=== PATIENT | male | born 1940 | race Caucasian/White ===

== ENCOUNTER 2017-12-08 05:42 | Day surgery (SDC) | payer MEDICARE, OTHER ==
--- NOTE | 2017-11-25 13:10 | EKG REPORT ---
SEVERITY:- ABNORMAL ECG - SINUS RHYTHM INFERIOR INFARCT, AGE INDETERMINATE ABNRM R PROG, CONSIDER ASMI OR LEAD PLACEMENT : Confirmed by: Eugenio Manuel MD 25-Nov-2017 13:09:18
[2017-11-25 13:37] LABS: HEMATOCRIT 46.4 % (37.9-51.0); HEMOGLOBIN 15.6 g/dL (13.5-17.0); MEAN CORPUSCULAR HEMOGLOBIN 30.5 pg (27.0-33.4); MEAN CORPUSCULAR HGB CONC 33.7 g/dL (32.0-36.0); MEAN CORPUSCULAR VOLUME 91 fl (80-97); PLATELET COUNT 222 10^3/uL (150-450); RED BLOOD COUNT 5.11 10^6/uL (4.35-5.55); WHITE BLOOD COUNT 8.1 10^3/uL (4.0-10.5)
[2017-11-25 14:07] LABS: INTERNATIONAL RATION (INR) 0.94; PROTHROMBIN TIME 13.1 SEC (11.4-15.4)
[2017-11-25 14:08] LABS: PARTIAL THROMBOPLASTIN TIME 31.5 SEC (23.5-35.8)
[2017-11-25 14:15] LABS: ANION GAP 12 (5-19); BLOOD UREA NITROGEN 18 mg/dL (7-20); CALCIUM 9.9 mg/dL (8.4-10.2); CARBON DIOXIDE 34 mmol/L (22-30); CHLORIDE 99 mmol/L (98-107); GLUCOSE 91 mg/dL (75-110); POTASSIUM 4.2 mmol/L (3.6-5.0)
[~2017-12-08 05:42] MED LIST: CEFAZOLIN 1 GM/D5W RTU 1 GM/50 ML RTUPB IV PRN; LACTATED RINGERS 1000 ML IV PRN; LIDOCAINE 0.5% INJ-PF (5 MG/ML) 50 ML SDV SUBCUT PRN
[2017-12-08] MEDS ORDERED: FENTANYL CITRATE INJ/PF 100 MCG/2 ML AMPUL ONE (06:35)
[2017-12-08] MEDS ORDERED: MIDAZOLAM 2 MG/2 ML INJ ONE (06:35)
[2017-12-08] MEDS ORDERED: PROPOFOL INJ 200 MG/20 ML VIAL IV ONE (06:35)
[2017-12-08] MEDS ORDERED: PROMETHAZINE HCL INJ 25 MG/1 ML VIAL IV PRN (08:58)
[2017-12-08] MEDS ORDERED: DIPHENHYDRAMINE HCL 50 MG/ML VIAL IV PRN (08:58)
[2017-12-08] MEDS ORDERED: FENTANYL CITRATE INJ/PF 100 MCG/2 ML AMPUL IV PRN ×2 (08:58)
[2017-12-08] MEDS ORDERED: ONDANSETRON HCL INJ/PF 4 MG/2 ML SDV IV PRN (08:58)
--- NOTE | 2017-12-08 09:36 | Operative Report ---
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
--- NOTE | 2017-12-08 09:36 | Operative Report ---
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 Patient was brought into the operating room and placed on the operating room table in a [supine] position. Patient was then prepped with a Betadine scrub and Betadine solution and draped in a sterile and aseptic manner. The area was then marked. 12 O'clock was marked towards the nose 3 O'clock was marked towards the lateral forehead 6:00 was marked towards the mormon hairline 9:00 was marked towards the cheek The area was then anesthetized with 1% lidocaine with epinephrine and bicarbonate for its anesthetic and hemostatic effects. The area was then excised and marked at 12:00. The specimen was sent for frozen section. The results came back that the deep and lateral margins were free. We had considered a primary closure but this would go against the natural relaxed skin tension lines. A primary closure would be too tight and would have increased chance of dehiscence. This will leave more of a scar so we decided to use a rotation flap reconstruction which would camouflage the scar better and take tension off of the closure so that would be less chances of complications. The flap decision would allow us to closure fall into the crows feet and then curved around and fall into the sideburn which would camouflage at the best and cause the least amount of distortion of the surrounding structures and the eyelid. Then we went ahead and outlined the flap and anesthetized it. We then incised the flap and developed a flap maintaining the subdermal plexus. Then we undermined 360 to allow for plate like scarring and minimize trap door deformity. Throughout the case hemostasis was achieved with the bipolar. We then sutured the flap into its new position using 5-0 Vicryl for the subcutaneous and deep dermis. Skin was closed with a [running subcuticular suture] stitch using [4-0 PDS] with knots being tied on the outside. And [4-0 PDS] suture was used for support and placed in the central area of the incision. We then applied tincture benzoin and Steri-Strips followed by a light pressure dressing. Patient was then reversed from anesthesia and taken to the [facility] for recovery. The patient tolerated well. There were no complications. Lesion size was approximately 1.7 x 1.5 cm please see pathology for actual size. Portions of this note may be dictated using [employer] voice recognition software. Occasional variations and spelling and vocabulary could be possible and are unintentional. Additionally, there is a chance that some errors may not be caught or corrected. Please notify the author of any discrepancies noted or if any statements are unclear. Subjective: No complaints Objective: Vital signs stable afebrile No bleeding Dressing intact Assessment and plan: Doing well. Elevate the operative site. Resume medications. Take antibiotics for 1 day Follow-up Full instructions were given to the patient and family and they understand Portions of this note may be dictated using [employer] voice recognition software. Occasional variations and spelling and vocabulary could be possible and are unintentional. Additionally, there is a chance that some errors may not be caught or corrected. Please notify the offer of any discrepancies noted or if any statements are unclear.
--- NOTE | 2017-12-08 09:38 | Discharge Summary ---
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 Leave the steri-strip tapes on for 5 days, then removal. Then cleaning wound with peroxide and apply Neosporin/bacitracin 3 times per day. Antibiotics for 1 day, then discontinue. Elevate operative area to decrease swelling. Do not strain, or lift heavy objects. Call for excessive bleeding, increased temperature of 101, uncontrolled pain, or excessive nausea or vomiting. You may reach Dr. Marinelli through his office at [phone]. In the event of an emergency after hours, then contact Dr. Marinelli through [facility]. Return to the office for a postop check on . The time will be scheduled by the nursing staff of [facility] prior to discharge. Please give the patient a copy of their labs and EKG so they can bring this to their PMD. Thank you Portions of this note may be dictated using [employer] voice recognition software. Occasional variations and spelling and vocabulary could be possible and are unintentional. Additionally, there is a chance that some errors may not be caught or corrected. Please notify the offer of any discrepancies noted or if any statements are unclear. Referrals: REGAN ESPAÑA MD [Primary Care Provider] - Discharge Diet: As Tolerated Report the Following to Your Physician Immediately: Unusual Bleeding - Keep head elevated. No bending or straining.
[2017-12-08 15:40] VITALS: BP 109/65
[2017-12-08] MEDS ORDERED: LIDOCAINE 2% INJ-PF (20 MG/ML) 2 ML AMPUL ONE (19:46)
== END 2017-12-08 11:30 | disposition home or self-care (01) ==
LOC: OROUT 05:42
PROVIDERS: ATTEND Plastic Surgery
DX: C44.329 Squamous cell carcinoma of skin of other parts of face (principal); I10 Essential (primary) hypertension; I51.9 Heart disease, unspecified; I25.2 Old myocardial infarction; Z79.899 Other long term (current) drug therapy; Z85.828 Personal history of other malignant neoplasm of skin; Z79.01 Long term (current) use of anticoagulants; Z01.818 Encounter for other preprocedural examination
CPT/HCPCS: 14040; 93005; 36415 ×2; 84132; 85027; 85610; 85730; 80048; 88305 ×2; 88331 ×2; 93010; J2250; J0690; J3490 ×3; J2704; 300; J3010

== ENCOUNTER 2018-11-20 12:00 | Inpatient (IN) | payer MEDICARE, OTHER ==
[2018-11-20 12:34] LABS: ABSOLUTE EOSINOPHILS # (AUTO) 0.1 10^3/uL (0.0-0.6); ABSOLUTE LYMPHOCYTES (AUTO) 1.1 10^3/uL (0.5-4.7); ABSOLUTE MONOCYTES (AUTO) 1.2 10^3/uL (0.1-1.4); ABSOLUTE NEUT (AUTO) 7.2 10^3/uL (1.7-8.2); BASOPHILS % (AUTO) 0.3 % (0-2); EOSINOPHILS % (AUTO) 0.5 % (0-6); HEMATOCRIT 43.8 % (37.9-51.0); HEMOGLOBIN 14.6 g/dL (13.5-17.0); LYMPHOCYTES % (AUTO) 11.2 % (13-45); MEAN CORPUSCULAR HEMOGLOBIN 30.6 pg (27.0-33.4); MEAN CORPUSCULAR HGB CONC 33.4 g/dL (32.0-36.0); MEAN CORPUSCULAR VOLUME 92 fl (80-97); MONOCYTES % (AUTO) 12.5 % (3-13); PLATELET COUNT 218 10^3/uL (150-450); RED BLOOD COUNT 4.78 10^6/uL (4.35-5.55); RED CELL DISTRIBUTION WIDTH 14.7 % (11.5-14.0); SEGMENTED NEUTROPHILS % (AUTO) 75.5 % (42-78); TOTAL CELLS COUNTED % (AUTO) 100 %; WHITE BLOOD COUNT 9.5 10^3/uL (4.0-10.5)
[2018-11-20 12:53] LABS: ALANINE AMINOTRANSFERASE 28 U/L (21-72); ALBUMIN 3.9 g/dL (3.5-5.0); ALKALINE PHOSPHATASE 73 U/L (38-126); ANION GAP 12 (5-19); ASPARTATE AMINO TRANSFERASE 22 U/L (17-59); BILIRUBIN,DIRECT 0.2 mg/dL (0.0-0.4); BILIRUBIN,TOTAL 1.1 mg/dL (0.2-1.3); BLOOD UREA NITROGEN 23 mg/dL (7-20); CALCIUM 9.7 mg/dL (8.4-10.2); CARBON DIOXIDE 29 mmol/L (22-30); CHLORIDE 102 mmol/L (98-107); CREATINE KINASE 40 U/L (55-170); GLUCOSE 114 mg/dL (75-110); SODIUM 142.6 mmol/L (137-145); TOTAL PROTEIN 7.2 g/dL (6.3-8.2)
[2018-11-20 13:05] LABS: CREATINE KINASE MB 0.44 ng/mL (<4.55)
[2018-11-20 13:06] LABS: TROPONIN I < 0.012 ng/mL
[2018-11-20] MEDS ORDERED: NORMAL SALINE 1000 ML 1,000 ML IV ONE (15:13)
--- NOTE | 2018-11-20 15:13 | EKG REPORT ---
SEVERITY:- ABNORMAL ECG - SINUS RHYTHM INFERIOR INFARCT, AGE INDETERMINATE ABNRM R PROG, CONSIDER ASMI OR LEAD PLACEMENT : Confirmed by: Eugenio Manuel MD 20-Nov-2018 15:12:56
--- NOTE | 2018-11-20 15:14 | ER Document Report ---
ED Dizziness/Weakness - General Chief Complaint: Syncope Stated Complaint: POSSIBLE SYNCOPE Time Seen by Provider: 11/20/18 14:43 Primary Care Provider: REGAN ESPAÑA MD [Primary Care Provider] - Follow up as needed Notes: 78-year-old male to the emergency department for evaluation of near syncope. Patient took a bath when he got out of the bath he must passed out. Did not hit fall or hit his head. Denies any pain. Blood pressure was reportedly low. No blood in his stool. No headache. No other issues at this time. Denies any chest pain. Patient did have a heart attack in 1981. When EMS arrived his blood pressure was reportedly low. Positive orthostats as well. TRAVEL OUTSIDE OF THE [place] IN LAST 30 DAYS: No - HPI Patient complains to provider of: Dizziness, Near-syncope Onset: Just prior to arrival Onset/Duration: Sudden Quality of pain: No pain Severity: Mild Pain Level: Denies Associated symptoms: Confused Exacerbated by: denies: Change in position, Movement of head - Related Data Allergies/Adverse Reactions: Sulfa (Sulfonamide Antibiotics) Allergy (Verified 11/25/17 11:02) RASH Past Medical History - General Information source: Patient - Social History Smoking Status: Former Smoker Chew tobacco use (# tins/day): No Frequency of alcohol use: None Drug Abuse: None Lives with: Spouse/Significant other Family History: Reviewed & Not Pertinent Patient has suicidal ideation: No Patient has homicidal ideation: No - Past Medical History Cardiac Medical History: Reports: Hx Heart Attack - 1990, Hx Hypertension Denies: Hx Coronary Artery Disease Pulmonary Medical History: Denies: Hx Asthma, Hx Bronchitis, Hx COPD, Hx Pneumonia Neurological Medical History: Denies: Hx Cerebrovascular Accident, Hx Seizures Renal/ Medical History: Denies: Hx Peritoneal Dialysis Musculoskeletal Medical History: Denies Hx Arthritis - Immunizations Hx Diphtheria, Pertussis, Tetanus Vaccination: Yes Hx Pneumococcal Vaccination: 04/05/17 Review of Systems - Review of Systems Notes: Constitutional: denies: Chills, Diaphoresis, Fever, Malaise, Weakness EENT: denies: Eye discharge, Blurred vision, Tearing, Double vision, Nose congestion, Nose discharge, Throat swelling, Mouth pain Cardiovascular: denies: Palpitations, Heart racing, Orthopnea, Dyspnea, Chest pain positive for near syncope and hypotension Respiratory: denies: Cough, Hurts to breathe, Wheezing, Shortness of breath Gastrointestinal: denies: Abdominal pain, Diarrhea, Nausea, Vomiting, Black stools, bright red blood in stool Genitourinary: denies: Burning, Dysuria, Discharge, Frequency, Flank pain, Hematuria Musculoskeletal: denies: Joint pain, Joint swelling, Muscle pain, Muscle stiffness, back pain Hematologic/Lymphatic: denies: Anemia, Easy bleeding, Easy bruising, Blood clots Neurological/Psychological: denies: Confusion, Dementia, Depression, Loss of consciousness positive for dizziness and near syncope. Skin: No lesions, no masses, no skin breakdown, no abscesses Physical Exam - Vital signs Vitals: Resp Pulse Ox 18 88 L 11/20/18 12:02 11/20/18 12:02 Interpretation: Normal - General General appearance: Appears well, Alert - HEENT Head: Normocephalic, Atraumatic Eyes: Normal Pupils: PERRL - Respiratory Respiratory status: No respiratory distress Chest status: Nontender Breath sounds: Normal Chest palpation: Normal - Cardiovascular Rhythm: Regular Heart sounds: Normal auscultation Murmur: No - Abdominal Inspection: Normal Distension: No distension Bowel sounds: Normal Tenderness: Nontender Organomegaly: No organomegaly - Back Back: Normal, Nontender - Extremities General upper extremity: Normal inspection, Nontender, Normal color, Normal ROM, Normal temperature General lower extremity: Normal inspection, Nontender, Normal color, Normal ROM, Normal temperature. No: Edema, Elke's sign - Neurological Neuro grossly intact: Yes Cognition: Normal Orientation: AAOx4 [place] Coma Scale Eye Opening: Spontaneous [place] Coma Scale Verbal: Oriented [place] Coma Scale Motor: Obeys Commands [place] Coma Scale Total: 15 Speech: Normal Motor strength normal: LUE, RUE, LLE, RLE Sensory: Normal - Psychological Associated symptoms: Normal affect, Normal mood - Skin Skin Temperature: Warm Skin Moisture: Dry Skin Color: Normal Course - Re-evaluation Re-evalutation: 11/20/18 20:07 At this time patient's labs are slightly abnormal. He has a mildly elevated lactic acid. His WBC count is on the higher end of normal. His oxygen level keeps dropping to below 90%. He had a near syncopal episode at home. His blood pressure by EMS was in the 80s. He has some mild renal insufficiency. All this being said I think something is going on. More likely is developing early pneumonia. I have obtained blood cultures. I am not going to begin them at this time. I am going to admit him to the hospital for further evaluation as patient is a high risk for becoming septic or having some decompensated condition. Laboratory 11/20/18 11/20/18 11/20/18 12:20 12:20 12:20 WBC 9.5 RBC 4.78 Hgb 14.6 Hct 43.8 MCV 92 MCH 30.6 MCHC 33.4 RDW 14.7 H Plt Count 218 Seg Neutrophils % 75.5 Lymphocytes % 11.2 L Monocytes % 12.5 Eosinophils % 0.5 Basophils % 0.3 Absolute Neutrophils 7.2 Absolute Lymphocytes 1.1 Absolute Monocytes 1.2 Absolute Eosinophils 0.1 Absolute Basophils 0.0 Sodium 142.6 Potassium 4.0 Chloride 102 Carbon Dioxide 29 Anion Gap 12 BUN 23 H Creatinine 1.27 H Est GFR ( Amer) > 60 Est GFR (Non-Af Amer) 55 L Glucose 114 H Lactic Acid Calcium 9.7 Total Bilirubin 1.1 Direct Bilirubin 0.2 Neonat Total Bilirubin Not Reportable Neonat Direct Bilirubin Not Reportable Neonat Indirect Bili Not Reportable AST 22 ALT 28 Alkaline Phosphatase 73 Creatine Kinase 40 L CK-MB (CK-2) 0.44 Troponin I < 0.012 Total Protein 7.2 Albumin 3.9 Urine Color Urine Appearance Urine pH Ur Specific [place] Urine Protein Urine Glucose (UA) Urine Ketones Urine Blood Urine Nitrite Urine Bilirubin Urine Urobilinogen Ur Leukocyte Esterase Urine WBC (Auto) Urine RBC (Auto) Squamous Epi Cells Auto Amorphous Sediment Auto Urine Mucus (Auto) Urine Ascorbic Acid 11/20/18 11/20/18 11/20/18 15:20 17:37 17:45 WBC RBC Hgb Hct MCV MCH MCHC RDW Plt Count Seg Neutrophils % Lymphocytes % Monocytes % Eosinophils % Basophils % Absolute Neutrophils Absolute Lymphocytes Absolute Monocytes Absolute Eosinophils Absolute Basophils Sodium Potassium Chloride Carbon Dioxide Anion Gap BUN Creatinine Est GFR ( Amer) Est GFR (Non-Af Amer) Glucose Lactic Acid 1.9 Calcium Total Bilirubin Direct Bilirubin Neonat Total Bilirubin Neonat Direct Bilirubin Neonat Indirect Bili AST ALT Alkaline Phosphatase Creatine Kinase 43 L CK-MB (CK-2) Troponin I Total Protein Albumin Urine Color YANET Urine Appearance CLOUDY Urine pH 5.0 Ur Specific [place] 1.026 Urine Protein 30 H Urine Glucose (UA) NEGATIVE Urine Ketones TRACE H Urine Blood NEGATIVE Urine Nitrite NEGATIVE Urine Bilirubin NEGATIVE Urine Urobilinogen 2.0 H Ur Leukocyte Esterase NEGATIVE Urine WBC (Auto) 4 Urine RBC (Auto) 1 Squamous Epi Cells Auto <1 Amorphous Sediment Auto TRACE Urine Mucus (Auto) MANY Urine Ascorbic Acid NEGATIVE 11/20/18 17:45 WBC RBC Hgb Hct MCV MCH MCHC RDW Plt Count Seg Neutrophils % Lymphocytes % Monocytes % Eosinophils % Basophils % Absolute Neutrophils Absolute Lymphocytes Absolute Monocytes Absolute Eosinophils Absolute Basophils Sodium Potassium Chloride Carbon Dioxide Anion Gap BUN Creatinine Est GFR ( Amer) Est GFR (Non-Af Amer) Glucose Lactic Acid Calcium Total Bilirubin Direct Bilirubin Neonat Total Bilirubin Neonat Direct Bilirubin Neonat Indirect Bili AST ALT Alkaline Phosphatase Creatine Kinase CK-MB (CK-2) Troponin I < 0.012 Total Protein Albumin Urine Color Urine Appearance Urine pH Ur Specific [place] Urine Protein Urine Glucose (UA) Urine Ketones Urine Blood Urine Nitrite Urine Bilirubin Urine Urobilinogen Ur Leukocyte Esterase Urine WBC (Auto) Urine RBC (Auto) Squamous Epi Cells Auto Amorphous Sediment Auto Urine Mucus (Auto) Urine Ascorbic Acid Chest X-Ray 11/20/18 17:05 IMPRESSION: NO ACUTE RADIOGRAPHIC FINDING IN THE CHEST. - Vital Signs Vital signs: Temp Pulse Resp BP Pulse Ox 97.7 F 70 20 133/66 H 91 L 11/20/18 17:00 11/20/18 13:31 11/20/18 19:01 11/20/18 19:00 11/20/18 19:01 - Laboratory Result Diagrams: 11/20/18 12:20 11/20/18 12:20 Laboratory results interpreted by me: 11/20/18 11/20/18 11/20/18 12:20 12:20 15:20 RDW 14.7 H Lymphocytes % 11.2 L BUN 23 H Creatinine 1.27 H Est GFR (Non-Af Amer) 55 L Glucose 114 H Creatine Kinase 40 L Urine Protein 30 H Urine Ketones TRACE H Urine Urobilinogen 2.0 H 11/20/18 17:45 RDW Lymphocytes % BUN Creatinine Est GFR (Non-Af Amer) Glucose Creatine Kinase 43 L Urine Protein Urine Ketones Urine Urobilinogen - EKG Interpretation by [place] EKG shows normal: Sinus rhythm, [place], Intervals, QRS Complexes Additional EKG results interpreted by me: 11/20/18 20:10 Poor R wave progression. Discharge - Discharge Clinical Impression: Transient hypotension, Near syncope Condition: Good Disposition: ADMITTED INPATIENT Admitting Provider: Nila (Hospitalist) Unit Admitted: IMCU Referrals: REGAN ESPAÑA MD [Primary Care Provider] - Follow up as needed
[2018-11-20 16:13] LABS: AMORPHOUS SEDIMENT,URINE TRACE /HPF; APPEARANCE,URINE CLOUDY; BILIRUBIN,URINE NEGATIVE (NEGATIVE); COLOR,URINE AMBER; GLUCOSE, URINE NEGATIVE (NEGATIVE); KETONES,URINE TRACE mg/dL (NEGATIVE); LEUKOCYTE ESTERASE,URINE NEGATIVE (NEGATIVE); NITRITE,URINE NEGATIVE (NEGATIVE); PROTEIN,URINE 30 mg/dL (NEGATIVE); URINE SPECIFIC GRAVITY 1.026
--- NOTE | 2018-11-20 18:34 | RADIOLOGY REPORT (SQ) ---
EXAM DESCRIPTION: CHEST SINGLE VIEW COMPLETED DATE/TIME: 11/20/2018 6:18 pm REASON FOR STUDY: hypotensive COMPARISON: 11/03/2018 and earlier EXAM PARAMETERS: NUMBER OF VIEWS: One view. TECHNIQUE: Single frontal radiographic view of the chest acquired. RADIATION DOSE: NA LIMITATIONS: None. FINDINGS: LUNGS AND PLEURA: Persistent elevation of the right hemidiaphragm. No focal consolidation , pleural effusion, pneumothorax. MEDIASTINUM AND HILAR STRUCTURES: No masses. Contour normal. HEART AND VASCULAR STRUCTURES: Heart normal in size. Normal vasculature. Calcifications of the aort ic arch. BONES: No acute findings. HARDWARE: None in the chest. OTHER: No other significant finding. IMPRESSION: NO ACUTE RADIOGRAPHIC FINDING IN THE CHEST. TECHNICAL DOCUMENTATION: JOB ID: [id number] [employer]- All Rights Reserved Reading location - IP/workstation name: [email or web address]
[2018-11-20] MEDS ORDERED: TEMAZEPAM 15 MG CAPSULE PO PRN (21:17)
[2018-11-20] MEDS ORDERED: ONDANSETRON 4 MG TAB.RAPDIS PO PRN (21:17)
[2018-11-20] MEDS ORDERED: MAGNESIUM HYDROXIDE SUSP 30 ML UDCUP PO PRN (21:17)
[2018-11-20] MEDS ORDERED: MAG HYDROX/AL HYDROX/SIMETH SUSP 30 ML UDCUP PO PRN (21:17)
[2018-11-20] MEDS ORDERED: ACETAMINOPHEN 325 MG TABLET PO PRN (21:29)
[2018-11-20] MEDS: FAMOTIDINE 20 MG TABLET PO SCH (23:56)
[2018-11-20] MEDS: HEPARIN SOD (PORCINE) 5,000 UNIT/ML 1 ML SYRINGE SUBCUT SCH (23:56)
[2018-11-20] MEDS: RINGERS SOLUTION,LACTATED 1,000 ML IV PRN (23:57)
[2018-11-21 00:24] LABS: CREATINE KINASE MB 0.58 ng/mL (<4.55)
[2018-11-21 00:28] LABS: TROPONIN I < 0.012 ng/mL
[2018-11-21 02:38] LABS: APPEARANCE,URINE CLEAR; BILIRUBIN,URINE NEGATIVE (NEGATIVE); COLOR,URINE YELLOW; GLUCOSE, URINE NEGATIVE (NEGATIVE); KETONES,URINE TRACE mg/dL (NEGATIVE); LEUKOCYTE ESTERASE,URINE NEGATIVE (NEGATIVE); NITRITE,URINE NEGATIVE (NEGATIVE); PROTEIN,URINE NEGATIVE (NEGATIVE)
--- NOTE | 2018-11-21 04:01 | PDOC H&P ---
History of Present Illness Admission Date/PCP: 11/20/18 19:46 REGAN ESPAÑA MD Patient complains of: Near syncope History of Present Illness: COSTA MARTÍNEZ is a 78 year old male who presented to the emergency room via EMS with an acute episode of near syncope. He admits that shortly before his arrival to the emergency room he got up out of a bath and felt mildly lightheaded as though he might pass out and also experienced some mild confusion. He denies any other accompanying symptoms or associated signs. He denies prior similar episodes and has not identified any aggravating or ameliorating factors for his near syncope. He managed to stabilize himself and did not fall or sustain any injury but some of the EMS services to bring him to the hospital. Upon the arrival of EMS at his home he was found to have mild hypotension with positive orthostatic changes on vital sign assessment. In the emergency room he had an essentially unremarkable evaluation and was subsequent ly admitted to the hospital for further evaluation and treatment. Past Medical History Cardiac Medical History: Reports: Coronary Artery Disease, Myocardial Infarction - 1990, Hyperlipidema, Hypertension, Peripheral Vascular Disease Denies: Atrial Fibrillation Pulmonary Medical History: Denies: Asthma, Bronchitis, Chronic Obstructive Pulmonary Disease (COPD), Pneumonia EENT Medical History: Reports: Eyes - Prescription eyeglasses Denies: Cataracts, Ears - Hearing aids Neurological Medical History: Reports: Other - History of TIA Denies: Hemorrhagic CVA, Ischemic CVA, Seizures Endocrine Medical History: Denies: Diabetes Mellitus Type 1, Diabetes Mellitus Type 2, Hyperthyroidism, Hypothyroidism Renal/ Medical History: Denies: Chronic Kidney Disease, Nephrolithiasis Malignancy Medical History: Reports: 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 GI Medical History: Denies: Cirrhosis, Hepatitis Musculoskeltal Medical History: Denies: Arthritis, Gout Skin Medical History: Denies: Eczema, Psoriasis Psychiatric Medical History: Denies: Alcohol Dependency, Substance Abuse, Tobacco Dependency Traumatic Medical History: Reports: None Hematology: Denies: Anemia, Bleeding Tendencies Infectious Medical History: Reports: None Past Surgical History Past Surgical History: Reports: Carotid Endarterectomy, Other - Facial skin cancer surgery Social History Information Source: Patient Lives with: Spouse/Significant other Smoking Status: Never Smoker Frequency of Alcohol Use: None Hx Recreational Drug Use: No Drugs: None Hx Prescription Drug Abuse: No - Advance Directive Resuscitation Status: Full Code Surrogate healthcare decision maker:: Spouse Family History Family History: Malignancy - Father Parental Family History Reviewed: Yes Children Family History Reviewed: No Sibling(s) Family History Reviewed.: Yes Medication/Allergy Home Medications: Amlodipine Besylate 5 mg PO DAILY 11/25/17 Aspirin [Aspirin 325 mg Tablet] 325 mg PO DAILY 11/25/17 Atenolol [Tenormin] 50 mg PO DAILY 11/25/17 Donepezil HCl 10 mg PO DAILY 11/25/17 Hydrochlorothiazide 25 mg PO DAILY 11/25/17 Montelukast Sodium 10 mg PO DAILY 11/25/17 Rosuvastatin Calcium 20 mg PO DAILY 11/25/17 Cilostazol 100 mg PO DAILY 12/08/17 Allergies/Adverse Reactions: Sulfa (Sulfonamide Antibiotics) Allergy (Verified 11/25/17 11:02) RASH Review of Systems Constitutional: ABSENT: chills, fever(s) Eyes: ABSENT: visual disturbances, other - Ocular pain Ears: ABSENT: hearing changes, other - Ear pain Nose, Mouth, and Throat: ABSENT: mouth pain, sore throat Cardiovascular: PRESENT: other - Near syncope. ABSENT: chest pain, dyspnea on exertion, edema, orthropnea, palpitations Respiratory: ABSENT: cough, dyspnea Gastrointestinal: ABSENT: abdominal pain, constipation, diarrhea, nausea, vomiting Genitourinary: ABSENT: difficulty urinating, dysuria, hematuria Integumentary: ABSENT: pruritus, rash Neurological: PRESENT: as per HPI, confusion, other - Near syncope. ABSENT: c onvulsions, focal weakness, memory loss Psychiatric: ABSENT: anxiety, depression Endocrine: ABSENT: cold intolerance, heat intolerance Hematologic/Lymphatic: ABSENT: easy bleeding, easy bruising Physical Exam Vital Signs: Temp Pulse Resp BP Pulse Ox 97.7 F 70 25 H 123/64 94 11/20/18 17:00 11/20/18 13:31 11/20/18 21:01 11/20/18 21:00 11/20/18 21:01 Intake & Output 11/18/18 11/19/18 11/20/18 23:59 23:59 23:59 Intake Total 1000 Balance 1000 Weight 81.7 kg General appearance: PRESENT: no acute distress, cooperative Head exam: PRESENT: atraumatic, normocephalic Eye exam: ABSENT: conjunctival injection, scleral icterus Ear exam: PRESENT: normal external ear exam. ABSENT: bleeding, drainage Mouth exam: PRESENT: dry mucosa, neck supple Neck exam: ABSENT: thyromegaly, tracheal deviation Respiratory exam: PRESENT: clear to auscultation harriet, symmetrical, unlabored Cardiovascular exam: PRESENT: RRR. ABSENT: clicks, gallop, rubs Pulses: PRESENT: normal radial pulses, normal dorsalis pedis pul Vascular exam: PRESENT: normal capillary refill. ABSENT: pallor GI/Abdominal exam: PRESENT: normal bowel sounds, soft Rectal exam: PRESENT: deferred Extremities exam: ABSENT: joint swelling, pedal edema Musculoskeletal exam: PRESENT: full ROM, normal inspection Neurological exam: PRESENT: alert, awake, oriented to person, oriented to place, oriented to time, oriented to situation, CN II-XII grossly intact. ABSENT: motor sensory deficit Psychiatric exam: PRESENT: appropriate affect, normal mood Skin exam: PRESENT: dry, intact, warm. ABSENT: jaundice, rash, urticaria Results Laboratory Results: 11/20/18 12:20 11/20/18 12:20 11/20/18 11/20/18 11/20/18 12:20 12:20 15:20 WBC 9.5 RBC 4.78 Hgb 14.6 Hct 43.8 MCV 92 MCH 30.6 MCHC 33.4 RDW 14.7 H Plt Count 218 Seg Neutrophils % 75.5 Lymphocytes % 11.2 L Monocytes % 12.5 Eosinophils % 0.5 Basophils % 0.3 Absolute Neutrophils 7.2 Absolute Lymphocytes 1.1 Absolute Monocytes 1.2 Absolute Eosinophils 0.1 Absolute Basophils 0.0 Sodium 142.6 Potassium 4.0 Chloride 102 Carbon Dioxide 29 Anion Gap 12 BUN 23 H Creatinine 1.27 H Est GFR ( Amer) > 60 Est GFR (Non-Af Amer) 55 L Glucose 114 H Lactic Acid Calcium 9.7 Total Bilirubin 1.1 AST 22 ALT 28 Alkaline Phosphatase 73 Total Protein 7.2 Albumin 3.9 Urine Color YANET Urine Appearance CLOUDY Urine pH 5.0 Ur Specific [place] 1.026 Urine Protein 30 H Urine Glucose (UA) NEGATIVE Urine Ketones TRACE H Urine Blood NEGATIVE Urine Nitrite NEGATIVE Ur Leukocyte Esterase NEGATIVE Urine WBC (Auto) 4 Urine RBC (Auto) 1 11/20/18 17:37 WBC RBC Hgb Hct MCV MCH MCHC RDW Plt Count Seg Neutrophils % Lymphocytes % Monocytes % Eosinophils % Basophils % Absolute Neutrophils Absolute Lymphocytes Absolute Monocytes Absolute Eosinophils Absolute Basophils Sodium Potassium Chloride Carbon Dioxide Anion Gap BUN Creatinine Est GFR ( Amer) Est GFR (Non-Af Amer) Glucose Lactic Acid 1.9 Calcium Total Bilirubin AST ALT Alkaline Phosphatase Total Protein Albumin Urine Color Urine Appearance Urine pH Ur Specific [place] Urine Protein Urine Glucose (UA) Urine Ketones Urine Blood Urine Nitrite Ur Leukocyte Esterase Urine WBC (Auto) Urine RBC (Auto) 11/20/18 11/20/18 11/20/18 12:20 12:20 17:45 Creatine Kinase 40 L 43 L CK-MB (CK-2) 0.44 Troponin I < 0.012 11/20/18 17:45 Creatine Kinase CK-MB (CK-2) Troponin I < 0.012 Impressions: Chest X-Ray 11/20/18 17:05 IMPRESSION: NO ACUTE RADIOGRAPHIC FINDING IN THE CHEST. Assessment and Plan - Diagnosis (1) Near syncope Is this a current diagnosis for this admission?: Yes Plan: Patient will undergo evaluation for syncope including a carotid Doppler study, a CT of the head without contrast of the echocardiogram. CBC and metabolic profiles will be evaluated. A cardiology consultation was obtained with Dr. Sena. (2) Transient hypotension Is this a current diagnosis for this admission?: Yes Plan: Patient's hypertension responded well to IV fluids which will be continued for the first part of his hospital stay. A cardiology consultation with Dr. Sena has been requested. Patient's vital signs were monitored closely throughout his hospital course. (3) Coronary artery disease Qualifiers: Coronary Disease-Associated Artery/Lesion type: [place] artery [place] vs. transplanted heart: rosebud heart Associated angina: angina presence unspecified Qualified Code(s): I25.10 - Atherosclerotic heart disease of [place] coronary artery without angina pectoris Is this a current diagnosis for this admission?: Yes Plan: Patient will be continued on his usual medications for his coronary artery disease and hypertension. A lipid profile and serial cardiac enzymes will be obtained as part of this evaluation. A thyroid profile will also be obtained. (4) Peripheral vascular disease Is this a current diagnosis for this admission?: Yes Plan: Patient will be continued on his current medication for peripheral vascular vascular disease. - Time Time Spent with patient: 25-34 minutes Medications reviewed and adjusted accordingly: Yes Anticipated discharge: Home - Inpatient Certification Based on my medical assessment, after consideration of the patient's comorbidities, presenting symptoms, or acuity I expect that the services needed warrant INPATIENT care.: Yes I certify that my determination is in accordance with my understanding of Medicare's requirements for reasonable and necessary INPATIENT services [42 CFR 412.3e].: Yes Medical Necessity: Significant Comorbidiites Make Outpatient Treatment Too Risky, Need Close Monitoring Due to Risk of Patient Decompensation, Need For IV Fluids, Need For Continuous Telemetry Monitoring, Need for Neurological Checks
[2018-11-21] MEDS: HEPARIN SOD (PORCINE) 5,000 UNIT/ML 1 ML SYRINGE SUBCUT SCH ×3 (05:22→21:29)
[2018-11-21 06:03] LABS: HEMATOCRIT 40.7 % (37.9-51.0); HEMOGLOBIN 13.6 g/dL (13.5-17.0); MEAN CORPUSCULAR HEMOGLOBIN 30.5 pg (27.0-33.4); MEAN CORPUSCULAR HGB CONC 33.4 g/dL (32.0-36.0); MEAN CORPUSCULAR VOLUME 92 fl (80-97); PLATELET COUNT 175 10^3/uL (150-450); RED BLOOD COUNT 4.45 10^6/uL (4.35-5.55); RED CELL DISTRIBUTION WIDTH 14.6 % (11.5-14.0); WHITE BLOOD COUNT 8.9 10^3/uL (4.0-10.5)
[2018-11-21 06:30] LABS: ANION GAP 10 (5-19); BLOOD UREA NITROGEN 20 mg/dL (7-20); CALCIUM 9.4 mg/dL (8.4-10.2); CARBON DIOXIDE 29 mmol/L (22-30); CHLORIDE 103 mmol/L (98-107); CHOLESTEROL 125.25 mg/dL (0-200); GLUCOSE 101 mg/dL (75-110); POTASSIUM 3.6 mmol/L (3.6-5.0); TRIGLYCERIDES 181 mg/dL (<150)
[2018-11-21 06:41] LABS: CREATINE KINASE MB 0.65 ng/mL (<4.55); DIRECT LDL 65 mg/dL (<100)
[2018-11-21 06:46] LABS: FREE T4 (FREE THYROXINE) 1.22 ng/dL (0.78-2.19)
[2018-11-21 06:49] LABS: FREE T3 3.09 pg/mL (2.77-5.27)
[2018-11-21 06:53] LABS: TROPONIN I < 0.012 ng/mL; VLDL CHOLESTEROL 36.2 mg/dL (10-31)
[2018-11-21 07:03] LABS: THYROID STIMULATING HORMONE 1.46 uIU/mL (0.47-4.68)
[2018-11-21] MEDS: RINGERS SOLUTION,LACTATED 1,000 ML IV PRN (08:03)
--- NOTE | 2018-11-21 08:18 | RADIOLOGY REPORT (SQ) ---
EXAM DESCRIPTION: CT HEAD WITHOUT COMPLETED DATE/TIME: 11/20/2018 10:56 pm REASON FOR STUDY: near syncope, AMS COMPARISON: None. TECHNIQUE: Axial images acquired through the brain without intravenous contrast. Images reviewed wi th bone, brain and subdural windows. Additional sagittal and coronal reconstructions were generated. Images stored on PACS. All CT scanners at this facility use dose modulation, iterative reconstruction, and/or weight based d osing when appropriate to reduce radiation dose to as low as reasonably achievable (ALARA). [facility]: Dose Right [facility]: CareDose [facility]: Dose Right [facility]: Teradose 4D [facility]: Smart Nextt RADIATION DOSE: CT Rad equipment meets quality standard of care and radiation dose reduction techniq ues were employed. CTDIvol: 53.2 mGy. DLP: 937 mGy-cm.mGy. LIMITATIONS: None. FINDINGS: VENTRICLES: Prominent. CEREBRUM: No masses. No hemorrhage. No midline shift. Areas of low density in the white matter mos t likely due to chronic micro-vascular ischemic change. No evidence for acute infarction. CEREBELLUM: No masses. No hemorrhage. No alteration of density. No evidence for acute infarction. EXTRAAXIAL SPACES: Age-related involutional change. No fluid collections. No masses. ORBITS AND GLOBE: No intra- or extraconal masses. Normal contour of globe without masses. CALVARIUM: No fracture. PARANASAL SINUSES: No fluid or mucosal thickening. SOFT TISSUES: No mass or hematoma. OTHER: No other significant finding. IMPRESSION: CHRONIC CHANGES OF ATROPHY AND MICROVASCULAR ISCHEMIA. NO ACUTE PROCESS. EVIDENCE OF ACUTE STROKE: NO. TECHNICAL DOCUMENTATION: JOB ID: [id number] Quality ID # [id number]: Final reports with documentation of one or more dose reduction techniques (e.g., Au tomated exposure control, adjustment of the mA and/or kV according to patient size, use of iterative reconstruction technique) 2010 [employer]- All Rights Reserved Reading location - IP/workstation name: [email or web address]
--- NOTE | 2018-11-21 08:55 | EKG REPORT ---
SEVERITY:- ABNORMAL ECG - SINUS RHYTHM ATRIAL PREMATURE COMPLEX INFERIOR INFARCT, AGE INDETERMINATE ABNRM R PROG, CONSIDER ASMI OR LEAD PLACEMENT : Confirmed by: Eugenio Manuel MD 21-Nov-2018 08:54:52
[2018-11-21] MEDS: DOCUSATE SODIUM 100 MG CAPSULE PO SCH ×2 (09:28→18:24)
[2018-11-21] MEDS: FAMOTIDINE 20 MG TABLET PO SCH ×2 (09:28→21:30)
--- NOTE | 2018-11-21 14:13 | PDOC CONSULTATION ---
Consultation-Blank Consultation: CARDIOLOGY CONSULTATION BY Dr. Amelia Sena on 11/21/2018. Patient seen at 10 AM on 11/21/2018. REASON FOR CONSULTATION: Patient with possible dizziness and near syncope. To me the patient states that he did not have near syncope but felt very dizzy and was diaphoretic and had generalized weakness. HISTORY PRESENT ILLNESS: Patient is a 78-year-old male with known history of hypertension, carotid artery disease, and hyperlipidemia, states he took a bath and subsequently stood up and felt very dizzy and had generalized fatigue and was diaphoretic. The symptoms subsided when the patient did lie down. The patient came to the emergency room. And on the floor the patient was found to have orthostatic changes of blood pressure. The patient has no further symptoms after he has been hydrated. Of note his creatinine was slightly elevated on admission. This is come down since after the hydration and the patient's hydrochlorothiazide was stopped. He denies any chest pain or discomfort. There is no nancy syncope. There is no PND orthopnea or chest pain or chest discomfort. The patient does have a history of coronary artery disease, history of myocardial infarction in 1983. The patient denies any shortness of breath or wheezing or cough. Past Medical History Cardiac Medical History: Reports: Coronary Artery Disease, Myocardial Infarction -1983. Treated medically. He states about a little more than a year ago he had a stress test which was negative for ischemia., Hyperlipidema, Hypertension, Peripheral Vascular Disease, with history of left carotid endarterectomy. Denies: Atrial Fibrillation Pulmonary Medical History: Denies: Asthma, Bronchitis, Chronic Obstructive Pulmonary Disease (COPD), Pneumonia EENT Medical History: Reports: Eyes - Prescription eyeglasses Denies: Cataracts, Ears - Hearing aids Neurological Medical History: Reports: Other - History of TIA Denies: Hemorrhagic CVA, Ischemic CVA, Seizures Endocrine Medical History: Denies: Diabetes Mellitus Type 1, Diabetes Mellitus Type 2, Hyperthyroidism, Hypothyroidism Renal/ Medical History: Denies: Chronic Kidney Disease, Nephrolithiasis Malignancy Medical History: Reports: 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 GI Medical History: Denies: Cirrhosis, Hepatitis Musculoskeltal Medical History: Denies: Arthritis, Gout Skin Medical History: Denies: Eczema, Psoriasis Psychiatric Medical History: Denies: Alcohol Dependency, Substance Abuse, Tobacco Dependency Traumatic Medical History: Reports: None Hematology: Denies: Anemia, Bleeding Tendencies Infectious Medical History: Reports: None Past Surgical History Past Surgical History: Reports: Left Carotid Endarterectomy, Other - Facial skin cancer surgery Social History Information Source: Patient Lives with: Spouse/Significant other Smoking Status: Never Smoker Frequency of Alcohol Use: None Hx Recreational Drug Use: No Drugs: None Hx Prescription Drug Abuse: No - Advance Directive Resuscitation Status: Full Code Surrogate healthcare decision maker:: Spouse Family History Family History: Malignancy - Father Parental Family History Reviewed: Yes Children Family History Reviewed: No Sibling(s) Family History Reviewed.: Yes Medication/Allergy Home Medications: Amlodipine Besylate 5 mg PO DAILY 11/25/17 Aspirin [Aspirin 325 mg Tablet] 325 mg PO DAILY 11/25/17 Atenolol [Tenormin] 50 mg PO DAILY 11/25/17 Donepezil HCl 10 mg PO DAILY 11/25/17 Hydrochlorothiazide 25 mg PO DAILY 11/25/17 Montelukast Sodium 10 mg PO DAILY 11/25/17 Rosuvastatin Calcium 20 mg PO DAILY 11/25/17 Cilostazol 100 mg PO DAILY 12/08/17 Allergies/Adverse Reactions: Sulfa (Sulfonamide Antibiotics) Allergy (Verified 11/25/17 11:02) RASH Review of Systems Constitutional: ABSENT: chills, fever(s) Eyes: ABSENT: visual disturbances, other - Ocular pain Ears: ABSENT: hearing changes, other - Ear pain Nose, Mouth, and Throat: ABSENT: mouth pain, sore throat Cardiovascular: PRESENT: other - Near syncope. ABSENT: chest pain, dyspnea on exertion, edema, orthropnea, palpitations Respiratory: ABSENT: cough, dyspnea Gastrointestinal: ABSENT: abdominal pain, constipation, diarrhea, nausea, vomiting Genitourinary: ABSENT: difficulty urinating, dysuria, hematuria Integumentary: ABSENT: pruritus, rash Neurological: PRESENT: as per HPI, confusion, other - Near syncope. ABSENT: convulsions, focal weakness, memory loss Psychiatric: ABSENT: anxiety, depression Endocrine: ABSENT: cold intolerance, heat intolerance Hematologic/Lymphatic: ABSENT: easy bleeding, easy bruising CONSULT REQUESTING PHYSICIAN: Dr. Kaveh Stearns, hospitalist physician. Current Medications Generic Name Dose Route Start Last Admin Trade Name Freq PRN Reason Stop Dose Admin Acetaminophen 650 mg 11/20/18 21:29 Tylenol 325 Mg Tablet PO 12/20/18 21:28 Q4HP PRN For headache, pain or fever Al Hydrox/Mg Hydrox/Simethicone 30 ml 11/20/18 21:17 Maalox Plus Susp 30 Udcup PO 12/20/18 21:16 Q6HP PRN HEARTBURN Docusate Sodium 100 mg 11/21/18 10:00 11/21/18 18:24 Colace 100 Mg Capsule PO 12/21/18 09:59 Not Given BID KATELYNN Famotidine 20 mg 11/20/18 22:00 11/21/18 09:28 Pepcid 20 Mg Tablet PO 12/20/18 21:59 20 mg Q12 KATELYNN Administration Heparin Sodium (Porcine) 5,000 unit 11/20/18 22:00 11/21/18 13:46 Heparin Inj 5,000 Units/Ml 1 Ml Syringe SUBCUT 12/20/18 21:59 Not Given Q8 KATELYNN Magnesium Hydroxide 30 ml 11/20/18 21:17 Milk Of Magnesia 30 Ml Udcup PO 12/20/18 21:16 HSP PRN FOR CONSTIPATION Ondansetron HCl 4 mg 11/20/18 21:17 Zofran Odt 4 Mg Tablet PO 12/20/18 21:16 Q4HP PRN FOR NAUSEA/VOMITING Sodium Chloride 2.5 ml 11/20/18 22:00 11/21/18 13:46 Saline Flush 2.5 Ml Monoject Prefil Syrin IV 12/20/18 21:59 Not Given Q8 KATELYNN Temazepam 15 mg 11/20/18 21:17 Restoril 15 Mg Capsule PO 11/27/18 21:16 HSP PRN SLEEP OR INSOMNIA Discontinued Medications Generic Name Dose Route Start Last Admin Trade Name Freq PRN Reason Stop Dose Admin Sodium Chloride 1,000 mls @ 0 mls/hr 11/20/18 15:13 11/20/18 16:40 Nacl 0.9% 1000 Ml Iv Soln IV 11/20/18 15:14 Infused BOLUS ONE Infusion Wide Open Lactated Ringer's 1,000 mls @ 125 mls/hr 11/20/18 21:17 11/21/18 16:30 Lactated Ringers 1000 Ml Iv Soln IV Infused CONTINUOUS PRN Infusion THIS MED IS NOT "PRN" PHYSICAL EXAMINATION: The patient is well-built and well-nourished. At present in no acute distress. He is well-groomed. Selected Entries 11/21/18 11/21/18 11/21/18 07:00 07:56 11:26 Temperature 98.0 F Temperature Oral Source Pulse Rate 78 Sitting Pulse 87 Rate Standing Pulse 88 Laying Down 85 Pulse Respiratory 21 H 18 Rate Blood Pressure 127/63 H Blood Pressure 84 Mean Sitting BP 123/61 Laying Down BP 127/63 Standing BP 99/47 BP Location Right Arm BP Position Supine O2 Sat by Pulse 92 92 Oximetry Oxygen Flow 2.00 Rate Oxygen Delivery Nasal Cannula Room Air Method HEAD: Is atraumatic normocephalic. EYES: Pupils are equal round regular reactive to light and accommodation. Extraocular movements are normal. No conjunctival pallor. There is no scleral icterus. EARS: Tympanic memories are intact. External auditory canals are clear. NOSE: There is no deviated nasal septum. There is no information there is mucous membrane. MOUTH: Mucous members of mouth are moist tongue is moist. There is no ulcers. There is no bleeding from the gums. THROAT: There is no redness of the oropharynx. There is no exudates. SKIN: There is no skin lesions or skin rashes. There is no particular ecchymosis. NECK: Is supple. There is no JVD. Carotids are equal. There is faint bilateral carotid bruits. There is scar of left carotid endarterectomy on the left side of the neck. There is no lymphadenopathy. There is no goiter. There is no accessory muscle respiration use. Trachea central. LUNGS: Is clear to auscultation percussion, without rhonchi rales or wheezing. HEART: S1-S2 is heard. There is no S3 gallop. There is no S4 gallop. There is systolic murmur left sternal border and the apex. There is no rub. ABDOMEN: Is soft. There is no hepatospleno megaly. Bowel sounds well heard. There is no tender areas masses. Bowel sounds are normal. EXTREMITIES: Femorals well felt. There is no femoral bruits. Leg pulses are well felt. There is no pedal edema. There is no DVT or cellulitis. There is no sinus or clubbing. TECHNOLOGY ARCHITECT: The patient is conscious awake alert oriented x3 with no focal deficit. PSYCHIATRIC: The patient judgment and insight are intact his affect is normal. EKG: Sinus rhythm. Old inferior wall myocardial infarction. Poor R wave progression due to most likely change leads V4 and V6. Cannot exclude old anterior NV versus lead placement. Subsequent EKG is similar. Except that there is poor R wave in V1 to V6. Possibly lead placement versus old anterior NV. Labs- Entire Visit 11/20/18 11/20/18 11/20/18 12:20 12:20 12:20 WBC 9.5 RBC 4.78 Hgb 14.6 Hct 43.8 MCV 92 MCH 30.6 MCHC 33.4 RDW 14.7 H Plt Count 218 Seg Neutrophils % 75.5 Lymphocytes % 11.2 L Monocytes % 12.5 Eosinophils % 0.5 Basophils % 0.3 Absolute Neutrophils 7.2 Absolute Lymphocytes 1.1 Absolute Monocytes 1.2 Absolute Eosinophils 0.1 Absolute Basophils 0.0 Sodium 142.6 Potassium 4.0 Chloride 102 Carbon Dioxide 29 Anion Gap 12 BUN 23 H Creatinine 1.27 H Est GFR ( Amer) > 60 Est GFR (Non-Af Amer) 55 L Glucose 114 H Lactic Acid Calcium 9.7 Magnesium Total Bilirubin 1.1 Direct Bilirubin 0.2 Neonat Total Bilirubin Not Reportable Neonat Direct Bilirubin Not Reportable Neonat Indirect Bili Not Reportable AST 22 ALT 28 Alkaline Phosphatase 73 Creatine Kinase 40 L CK-MB (CK-2) 0.44 Troponin I < 0.012 Total Protein 7.2 Albumin 3.9 Triglycerides Cholesterol LDL Cholesterol Direct VLDL Cholesterol HDL Cholesterol TSH Free T4 Free T3 pg/mL Urine Color Urine Appearance Urine pH Ur Specific [place] Urine Protein Urine Glucose (UA) Urine Ketones Urine Blood Urine Nitrite Urine Bilirubin Urine Urobilinogen Ur Leukocyte Esterase Urine WBC (Auto) Urine RBC (Auto) Squamous Epi Cells Auto Amorphous Sediment Auto Urine Mucus (Auto) Urine Ascorbic Acid 11/20/18 11/20/18 11/20/18 15:20 17:37 17:45 WBC RBC Hgb Hct MCV MCH MCHC RDW Plt Count Seg Neutrophils % Lymphocytes % Monocytes % Eosinophils % Basophils % Absolute Neutrophils Absolute Lymphocytes Absolute Monocytes Absolute Eosinophils Absolute Basophils Sodium Potassium Chloride Carbon Dioxide Anion Gap BUN Creatinine Est GFR ( Amer) Est GFR (Non-Af Amer) Glucose Lactic Acid 1.9 Calcium Magnesium Total Bilirubin Direct Bilirubin Neonat Total Bilirubin Neonat Direct Bilirubin Neonat Indirect Bili AST ALT Alkaline Phosphatase Creatine Kinase 43 L CK-MB (CK-2) Troponin I Total Protein Albumin Triglycerides Cholesterol LDL Cholesterol Direct VLDL Cholesterol HDL Cholesterol TSH Free T4 Free T3 pg/mL Urine Color YANET Urine Appearance CLOUDY Urine pH 5.0 Ur Specific [place] 1.026 Urine Protein 30 H Urine Glucose (UA) NEGATIVE Urine Ketones TRACE H Urine Blood NEGATIVE Urine Nitrite NEGATIVE Urine Bilirubin NEGATIVE Urine Urobilinogen 2.0 H Ur Leukocyte Esterase NEGATIVE Urine WBC (Auto) 4 Urine RBC (Auto) 1 Squamous Epi Cells Auto <1 Amorphous Sediment Auto TRACE Urine Mucus (Auto) MANY Urine Ascorbic Acid NEGATIVE 11/20/18 11/20/18 11/20/18 17:45 23:43 23:43 WBC RBC Hgb Hct MCV MCH MCHC RDW Plt Count Seg Neutrophils % Lymphocytes % Monocytes % Eosinophils % Basophils % Absolute Neutrophils Absolute Lymphocytes Absolute Monocytes Absolute Eosinophils Absolute Basophils Sodium Potassium Chloride Carbon Dioxide Anion Gap BUN Creatinine Est GFR ( Amer) Est GFR (Non-Af Amer) Glucose Lactic Acid Calcium Magnesium Total Bilirubin Direct Bilirubin Neonat Total Bilirubin Neonat Direct Bilirubin Neonat Indirect Bili AST ALT Alkaline Phosphatase Creatine Kinase 47 L CK-MB (CK-2) 0.58 Troponin I < 0.012 < 0.012 Total Protein Albumin Triglycerides Cholesterol LDL Cholesterol Direct VLDL Cholesterol HDL Cholesterol TSH Free T4 Free T3 pg/mL Urine Color Urine Appearance Urine pH Ur Specific [place] Urine Protein Urine Glucose (UA) Urine Ketones Urine Blood Urine Nitrite Urine Bilirubin Urine Urobilinogen Ur Leukocyte Esterase Urine WBC (Auto) Urine RBC (Auto) Squamous Epi Cells Auto Amorphous Sediment Auto Urine Mucus (Auto) Urine Ascorbic Acid 11/21/18 11/21/18 11/21/18 02:25 05:52 05:52 WBC RBC Hgb Hct MCV MCH MCHC RDW Plt Count Seg Neutrophils % Lymphocytes % Monocytes % Eosinophils % Basophils % Absolute Neutrophils Absolute Lymphocytes Absolute Monocytes Absolute Eosinophils Absolute Basophils Sodium Potassium Chloride Carbon Dioxide Anion Gap BUN Creatinine Est GFR ( Amer) Est GFR (Non-Af Amer) Glucose Lactic Acid Calcium Magnesium Total Bilirubin Direct Bilirubin Neonat Total Bilirubin Neonat Direct Bilirubin Neonat Indirect Bili AST ALT Alkaline Phosphatase Creatine Kinase 54 L CK-MB (CK-2) 0.65 Troponin I < 0.012 Total Protein Albumin Triglycerides Cholesterol LDL Cholesterol Direct VLDL Cholesterol HDL Cholesterol TSH Free T4 Free T3 pg/mL Urine Color YELLOW Urine Appearance CLEAR Urine pH 6.0 Ur Specific [place] 1.020 Urine Protein NEGATIVE Urine Glucose (UA) NEGATIVE Urine Ketones TRACE H Urine Blood NEGATIVE Urine Nitrite NEGATIVE Urine Bilirubin NEGATIVE Urine Urobilinogen 4.0 H Ur Leukocyte Esterase NEGATIVE Urine WBC (Auto) 0 Urine RBC (Auto) 1 Squamous Epi Cells Auto <1 Amorphous Sediment Auto Urine Mucus (Auto) RARE Urine Ascorbic Acid NEGATIVE 11/21/18 11/21/18 11/21/18 05:52 05:52 05:52 WBC 8.9 RBC 4.45 Hgb 13.6 Hct 40.7 MCV 92 MCH 30.5 MCHC 33.4 RDW 14.6 H Plt Count 175 Seg Neutrophils % Lymphocytes % Monocytes % Eosinophils % Basophils % Absolute Neutrophils Absolute Lymphocytes Absolute Monocytes Absolute Eosinophils Absolute Basophils Sodium 142.0 Potassium 3.6 Chloride 103 Carbon Dioxide 29 Anion Gap 10 BUN 20 Creatinine 0.81 Est GFR ( Amer) > 60 Est GFR (Non-Af Amer) > 60 Glucose 101 Lactic Acid Calcium 9.4 Magnesium 1.9 Total Bilirubin Direct Bilirubin Neonat Total Bilirubin Neonat Direct Bilirubin Neonat Indirect Bili AST ALT Alkaline Phosphatase Creatine Kinase CK-MB (CK-2) Troponin I Total Protein Albumin Triglycerides 181 H Cholesterol 125.25 LDL Cholesterol Direct 65 VLDL Cholesterol 36.2 H HDL Cholesterol 40 TSH 1.46 Free T4 1.22 Free T3 pg/mL 3.09 Urine Color Urine Appearance Urine pH Ur Specific [place] Urine Protein Urine Glucose (UA) Urine Ketones Urine Blood Urine Nitrite Urine Bilirubin Urine Urobilinogen Ur Leukocyte Esterase Urine WBC (Auto) Urine RBC (Auto) Squamous Epi Cells Auto Amorphous Sediment Auto Urine Mucus (Auto) Urine Ascorbic Acid 11/21/18 11/21/18 12:59 12:59 WBC RBC Hgb Hct MCV MCH MCHC RDW Plt Count Seg Neutrophils % Lymphocytes % Monocytes % Eosinophils % Basophils % Absolute Neutrophils Absolute Lymphocytes Absolute Monocytes Absolute Eosinophils Absolute Basophils Sodium Potassium Chloride Carbon Dioxide Anion Gap BUN Creatinine Est GFR ( Amer) Est GFR (Non-Af Amer) Glucose Lactic Acid Calcium Magnesium Total Bilirubin Direct Bilirubin Neonat Total Bilirubin Neonat Direct Bilirubin Neonat Indirect Bili AST ALT Alkaline Phosphatase Creatine Kinase 67 CK-MB (CK-2) 0.97 Troponin I < 0.012 Total Protein Albumin Triglycerides Cholesterol LDL Cholesterol Direct VLDL Cholesterol HDL Cholesterol TSH Free T4 Free T3 pg/mL Urine Color Urine Appearance Urine pH Ur Specific [place] Urine Protein Urine Glucose (UA) Urine Ketones Urine Blood Urine Nitrite Urine Bilirubin Urine Urobilinogen Ur Leukocyte Esterase Urine WBC (Auto) Urine RBC (Auto) Squamous Epi Cells Auto Amorphous Sediment Auto Urine Mucus (Auto) Urine Ascorbic Acid Head CT 11/20/18 00:00 IMPRESSION: CHRONIC CHANGES OF ATROPHY AND MICROVASCULAR ISCHEMIA. NO ACUTE PROCESS. EVIDENCE OF ACUTE STROKE: NO. Chest X-Ray 11/20/18 17:05 IMPRESSION: NO ACUTE RADIOGRAPHIC FINDING IN THE CHEST. IMPRESSION/RECOMMENDATION: 1. Patient with past 2 dizziness, diaphoresis and weakness which is generalized secondary to orthostatic blood pressure changes. Most likely the culprit is th e patient's hydrochlorothiazide. Would recommend discontinue the patient's hydrochlorothiazide. Note that the patient has been hydrated. Would avoid hydrochlorothiazide in the future. 2. Hypertension: At present the patient's blood pressure is well controlled. He has no further symptoms of orthostatic hypotension. Continue the patient's beta-shemar and amlodipine 3. Orthostatic hypotension: Most likely secondary to dehydration due to the patient's hydrochlorothiazide. Hence recommend discontinue the patient's hydrochlorothiazide. 4. Coronary artery disease: Old micro-inferior wall myocardial infarction. Patient has no anginal symptoms. No evidence of congestive heart failure. Would recommend outpatient echocardiogram. 5. Peripheral vascular disease: History of left carotid endarterectomy: Recommend carotid Doppler which has been done await interpretation. 6. Hyperlipidemia: Continue statin. Patient's cardiology status is stable. Okay to discharge the patient once the carotid Doppler findings are normal. Note 60 minutes spent on this patient more than 50% of time spent direct patient care medications reviewed medication adjustments discussed with attending physician on the case. Medical decision making is of moderate to high complexity. Later would recommend as an outpatient to get an IV Lexiscan Cardiolite stress test and an echocardiogram. I discussed with the family that if they decide they can follow-up with me in the office. Will sign off as discussed with attending physician.
[2018-11-21 14:46] LABS: CREATINE KINASE MB 0.97 ng/mL (<4.55)
[2018-11-21 14:47] LABS: TROPONIN I < 0.012 ng/mL
--- NOTE | 2018-11-21 15:47 | PDOC PROGRESS REPORT ---
Subjective Progress Note for:: 11/21/18 Subjective:: No adverse events overnight. No new complaints. Blood pressures have improved with IV fluids. Urine output has been good. No more dizzy spells. No palpitations or shortness of breath. Reason For Visit: NEAR SYNCOPE, POSTURAL HYPOTENSION Physical Exam Vital Signs: Temp Pulse Resp BP Pulse Ox 97.6 F 79 18 139/60 H 92 11/21/18 11:26 11/21/18 11:26 11/21/18 11:26 11/21/18 11:26 11/21/18 11:26 Intake & Output 11/20/18 11/21/18 11/22/18 06:59 06:59 06:59 Intake Total 1150 1240 Output Total 400 Balance 1150 840 Weight 79.4 kg General appearance: PRESENT: no acute distress, cooperative, disheveled, obese Respiratory exam: PRESENT: clear to auscultation harriet, symmetrical, unlabored. ABSENT: accessory muscle use, chest wall tenderness, crackles, prolonged expiratory phas, rhonchi, tachypnea, wheezes Cardiovascular exam: PRESENT: RRR - Some occasional early beats, +S1, +S2 Pulses: PRESENT: normal carotid pulses Vascular exam: PRESENT: normal capillary refill GI/Abdominal exam: PRESENT: normal bowel sounds, soft. ABSENT: distended, guarding, rebound, tenderness Extremities exam: ABSENT: clubbing, pedal edema Musculoskeletal exam: PRESENT: normal inspection. ABSENT: deformity Neurological exam: PRESENT: alert, awake, oriented to person, oriented to place, oriented to situation Psychiatric exam: PRESENT: appropriate affect, normal mood Skin exam: PRESENT: dry, warm Results Laboratory Results: 11/21/18 05:52 11/21/18 05:52 11/20/18 11/20/18 11/21/18 15:20 17:37 02:25 WBC RBC Hgb Hct MCV MCH MCHC RDW Plt Count Sodium Potassium Chloride Carbon Dioxide Anion Gap BUN Creatinine Est GFR ( Amer) Est GFR (Non-Af Amer) Glucose Lactic Acid 1.9 Calcium Magnesium Triglycerides Cholesterol LDL Cholesterol Direct VLDL Cholesterol HDL Cholesterol TSH Free T4 Free T3 pg/mL Urine Color YANET YELLOW Urine Appearance CLOUDY CLEAR Urine pH 5.0 6.0 Ur Specific [place] 1.026 1.020 Urine Protein 30 H NEGATIVE Urine Glucose (UA) NEGATIVE NEGATIVE Urine Ketones TRACE H TRACE H Urine Blood NEGATIVE NEGATIVE Urine Nitrite NEGATIVE NEGATIVE Ur Leukocyte Esterase NEGATIVE NEGATIVE Urine WBC (Auto) 4 0 Urine RBC (Auto) 1 1 11/21/18 11/21/18 11/21/18 05:52 05:52 05:52 WBC 8.9 RBC 4.45 Hgb 13.6 Hct 40.7 MCV 92 MCH 30.5 MCHC 33.4 RDW 14.6 H Plt Count 175 Sodium 142.0 Potassium 3.6 Chloride 103 Carbon Dioxide 29 Anion Gap 10 BUN 20 Creatinine 0.81 Est GFR ( Amer) > 60 Est GFR (Non-Af Amer) > 60 Glucose 101 Lactic Acid Calcium 9.4 Magnesium 1.9 Triglycerides 181 H Cholesterol 125.25 LDL Cholesterol Direct 65 VLDL Cholesterol 36.2 H HDL Cholesterol 40 TSH 1.46 Free T4 1.22 Free T3 pg/mL 3.09 Urine Color Urine Appearance Urine pH Ur Specific [place] Urine Protein Urine Glucose (UA) Urine Ketones Urine Blood Urine Nitrite Ur Leukocyte Esterase Urine WBC (Auto) Urine RBC (Auto) 11/20/18 11/20/18 11/20/18 12:20 12:20 17:45 Creatine Kinase 40 L 43 L CK-MB (CK-2) 0.44 Troponin I < 0.012 11/20/18 11/20/18 11/20/18 17:45 23:43 23:43 Creatine Kinase 47 L CK-MB (CK-2) 0.58 Troponin I < 0.012 < 0.012 11/21/18 11/21/18 11/21/18 05:52 05:52 12:59 Creatine Kinase 54 L 67 CK-MB (CK-2) 0.65 Troponin I < 0.012 11/21/18 12:59 Creatine Kinase CK-MB (CK-2) 0.97 Troponin I < 0.012 Impressions: Head CT 11/20/18 00:00 IMPRESSION: CHRONIC CHANGES OF ATROPHY AND MICROVASCULAR ISCHEMIA. NO ACUTE PROCESS. EVIDENCE OF ACUTE STROKE: NO. Chest X-Ray 11/20/18 17:05 IMPRESSION: NO ACUTE RADIOGRAPHIC FINDING IN THE CHEST. Assessment and Plan - Diagnosis (1) Near syncope Is this a current diagnosis for this admission?: Yes Plan: Seen by cardiology, planning for an echocardiogram in the office. We will check a carotid Doppler. Suspect he was actually dehydrated, as his creatinine was elevated and it improved with IV fluids and stopping his HCTZ. If his carotid Doppler is unremarkable in the morning, we can discharge him home at that time. - Time Time Spent with patient: 15-24 minutes
[2018-11-22 05:23] LABS: HEMATOCRIT 41.3 % (37.9-51.0); HEMOGLOBIN 13.7 g/dL (13.5-17.0); MEAN CORPUSCULAR HEMOGLOBIN 30.1 pg (27.0-33.4); MEAN CORPUSCULAR HGB CONC 33.2 g/dL (32.0-36.0); MEAN CORPUSCULAR VOLUME 91 fl (80-97); PLATELET COUNT 185 10^3/uL (150-450); RED BLOOD COUNT 4.55 10^6/uL (4.35-5.55); RED CELL DISTRIBUTION WIDTH 14.8 % (11.5-14.0); WHITE BLOOD COUNT 6.9 10^3/uL (4.0-10.5)
[2018-11-22] MEDS: HEPARIN SOD (PORCINE) 5,000 UNIT/ML 1 ML SYRINGE SUBCUT SCH ×2 (05:27→13:06)
[2018-11-22 05:55] LABS: ANION GAP 8 (5-19); BLOOD UREA NITROGEN 12 mg/dL (7-20); CALCIUM 9.4 mg/dL (8.4-10.2); CARBON DIOXIDE 29 mmol/L (22-30); CHLORIDE 103 mmol/L (98-107); GLUCOSE 99 mg/dL (75-110); POTASSIUM 3.6 mmol/L (3.6-5.0); SODIUM 140.1 mmol/L (137-145)
--- NOTE | 2018-11-22 08:44 | RADIOLOGY REPORT (SQ) ---
EXAM DESCRIPTION: CAROTID DOPPLER COMPLETED DATE/TIME: 11/21/2018 7:21 pm REASON FOR STUDY: near syncope COMPARISON: None. TECHNIQUE: Grayscale ultrasound, Doppler velocity and spectra, and color Doppler images acquired of the extra-cranial carotid and vertebral arteries. Images stored on PACS. LIMITATIONS: None. FINDINGS: RIGHT CAROTID CCA Velocities: Within normal limits. ICA Velocities Peak systolic 1.04 m/s. End diastolic 0.31 m/s. Proximal ICA/CCA peak systolic ratio 1.4. Extensive plaque. LEFT CAROTID CCA Velocities: Within normal limits. ICA Velocities Peak systolic 2.19 m/s. End diastolic 0.87 m/s. Proximal ICA/CCA peak systolic ratio 3.0. Extensive plaque. VERTEBRAL ARTERIES: Antegrade flow. Normal waveforms. SUBCLAVIAN ARTERIES: No finding. OTHER: No other significant finding. IMPRESSION: EXTENSIVE PLAQUE. LESS THAN 50% STENOSIS OF THE RIGHT INTERNAL CAROTID ARTERY. 50- 69% STENOSIS OF THE LEFT INTERNAL CAROTID ARTERY. COMMENT: Quality ID #[id number]: Velocity criteria are extrapolated from the diameter data as defined by t he Society of Radiologists in Ultrasound Consensus Conference. Radiology 2003: 229; 340-346. TECHNICAL DOCUMENTATION: JOB ID: [id number] [employer]- All Rights Reserved Reading location - IP/workstation name: [email or web address]
[2018-11-22] MEDS: FAMOTIDINE 20 MG TABLET PO SCH (09:20)
[2018-11-22] MEDS: DOCUSATE SODIUM 100 MG CAPSULE PO SCH (09:20)
[2018-11-22 13:00] VITALS: BP 136/76
--- NOTE | 2018-11-22 14:24 | PDOC DISCHARGE SUMMARY ---
General - Admit/Disc Date/PCP Admission Date/Primary Care Provider: 11/20/18 19:46 REGAN ESPAÑA MD Discharge Date: 11/22/18 - Discharge Diagnosis (1) Near syncope Is this a current diagnosis for this admission?: Yes Summary: Orthostatic hypotension due to HCTZ therapy. HCTZ was discontinued. Covered with IV fluids. He was asymptomatic afterwards. (2) Carotid stenosis, bilateral Is this a current diagnosis for this admission?: Yes Summary: He had less than 50% stenosis on the right internal carotid and 50 to 69% stenosis on the left internal carotid. He is already on cholesterol medication. He was started on aspirin. I have recommended that he seek referral to a vascular surgeon for an opinion, but urgent surgery is not necessary. (3) Dehydration Is this a current diagnosis for this admission?: Yes Summary: Due to HCTZ. We stopped the HCTZ and give him some IV fluids and he responded very well. - Additional Information Resuscitation Status: Full Code Discharge Diet: Cardiac Discharge Activity: Activity As Tolerated Prescriptions: Aspirin [Aspirin 81 mg Chewable Tablet] 81 mg PO DAILY #1 pkg Home Medications: Amlodipine Besylate [Norvasc 5 mg Tablet] 5 mg PO DAILY 11/21/18 Atenolol [Tenormin 50 mg Tablet] 25 mg PO DAILY 11/21/18 Rosuvastatin Calcium [Crestor 20 mg Tablet] 20 mg PO DAILY 11/21/18 Aspirin [Aspirin 81 mg Chewable Tablet] 81 mg PO DAILY #1 pkg 11/22/18 History of Present Illness History of Present Illness: COSTA MARTÍNEZ is a 78 year old male who presented to the emergency room via EMS with an acute episode of near syncope. He admits that shortly before his arrival to the emergency room he got up out of a bath and felt mildly lightheaded as though he might pass out and also experienced some mild confusion. He denies any other accompanying symptoms or associated signs. He denies prior similar episodes and has not identified any aggravating or ameliorating factors for his near syncope. He managed to stabilize himself and did not fall or sustain any injury but some of the EMS services to bring him to the hospital. Upon the arrival of EMS at his home he was found to have mild hypotension with positive orthostatic changes on vital sign assessment. In the emergency room he had an essentially unremarkable evaluation and was subsequently admitted to the hospital for further evaluation and treatment. Hospital Course Hospital Course: He was brought in and taken off of HCTZ and given some IV fluids. He was ruled out for acute stroke. He was seen in consultation by Dr. Sena who is planning on bringing him to the office to do an echocardiogram and a stress test. We did get a carotid Doppler ultrasound here which showed carotid steno sis as noted above. I am not entirely convinced that his symptoms were attributable to his carotid stenosis, but consultation with a vascular surgeon was recommended to the patient. In addition to his home medications minus the HCTZ, he was told to take an aspirin every day. He was asymptomatic. Labs and examination were reassuring he was discharged in good condition. Physical Exam Vital Signs: Temp Pulse Resp BP Pulse Ox 98.0 F 92 18 136/76 H 93 11/22/18 12:39 11/22/18 12:40 11/22/18 12:39 11/22/18 12:40 11/22/18 12:40 Intake & Output 11/21/18 11/22/18 11/23/18 06:59 06:59 06:59 Intake Total 1150 2390 240 Output Total 700 Balance 1150 1690 240 Weight 79.4 kg 79 kg General appearance: PRESENT: no acute distress, cooperative, disheveled, obese Respiratory exam: PRESENT: clear to auscultation harriet, symmetrical, unlabored. ABSENT: accessory muscle use, chest wall tenderness, crackles, prolonged expiratory phas, rhonchi, tachypnea, wheezes Cardiovascular exam: PRESENT: RRR - Some occasional early beats, +S1, +S2 Pulses: PRESENT: normal carotid pulses Vascular exam: PRESENT: normal capillary refill GI/Abdominal exam: PRESENT: normal bowel sounds, soft. ABSENT: distended, guarding, rebound, tenderness Extremities exam: ABSENT: clubbing, pedal edema Musculoskeletal exam: PRESENT: normal inspection. ABSENT: deformity Neurological exam: PRESENT: alert, awake, oriented to person, oriented to place, oriented to situation Psychiatric exam: PRESENT: appropriate affect, normal mood Skin exam: PRESENT: dry, warm Results Laboratory Results: 11/22/18 04:53 11/22/18 04:53 11/22/18 11/22/18 04:53 04:53 WBC 6.9 RBC 4.55 Hgb 13.7 Hct 41.3 MCV 91 MCH 30.1 MCHC 33.2 RDW 14.8 H Plt Count 185 Sodium 140.1 Potassium 3.6 Chloride 103 Carbon Dioxide 29 Anion Gap 8 BUN 12 Creatinine 0.79 Est GFR ( Amer) > 60 Est GFR (Non-Af Amer) > 60 Glucose 99 Calcium 9.4 Magnesium 1.9 11/20/18 11/20/18 11/20/18 12:20 12:20 17:45 Creatine Kinase 40 L 43 L CK-MB (CK-2) 0.44 Troponin I < 0.012 11/20/18 11/20/18 11/20/18 17:45 23:43 23:43 Creatine Kinase 47 L CK-MB (CK-2) 0.58 Troponin I < 0.012 < 0.012 11/21/18 11/21/18 11/21/18 05:52 05:52 12:59 Creatine Kinase 54 L 67 CK-MB (CK-2) 0.65 Troponin I < 0.012 11/21/18 12:59 Creatine Kinase CK-MB (CK-2) 0.97 Troponin I < 0.012 Impressions: Head CT 11/20/18 00:00 IMPRESSION: CHRONIC CHANGES OF ATROPHY AND MICROVASCULAR ISCHEMIA. NO ACUTE PROCESS. EVIDENCE OF ACUTE STROKE: NO. Chest X-Ray 11/20/18 17:05 IMPRESSION: NO ACUTE RADIOGRAPHIC FINDING IN THE CHEST. Carotid Doppler Study 11/21/18 00:00 IMPRESSION: EXTENSIVE PLAQUE. LESS THAN 50% STENOSIS OF THE RIGHT INTERNAL CAROTID ARTERY. 50- 69% STENOSIS OF THE LEFT INTERNAL CAROTID ARTERY. Qualifiers - * PATIENT BEING DISCHARGED WITH ANY OF THE FOLLOWING DIAGNOSIS: No Acute Heart Failure Is this a Heart Failure Patient?: No Plan Time Spent: Greater than 30 Minutes
== END 2018-11-22 14:25 | disposition home or self-care (01) | DRG 312 ==
LOC: ER 12:00 → EH 19:46 → 3S 21:50
PROVIDERS: ADMIT Emergency Medicine; ATTEND Emergency Medicine
DX: I95.2 Hypotension due to drugs (principal); I25.10 Atherosclerotic heart disease of native coronary artery without angina pectoris; E78.5 Hyperlipidemia, unspecified; T50.2X5A Adverse effect of carbonic-anhydrase inhibitors, benzothiadiazides and other diuretics, initial encounter; I65.23 Occlusion and stenosis of bilateral carotid arteries; I10 Essential (primary) hypertension; E86.0 Dehydration; I73.9 Peripheral vascular disease, unspecified; I25.2 Old myocardial infarction; Z86.73 Personal history of transient ischemic attack (TIA), and cerebral infarction without residual deficits; Z79.82 Long term (current) use of aspirin; Z79.899 Other long term (current) drug therapy; Z88.2 Allergy status to sulfonamides
CPT/HCPCS: 36415; 70450; 71045; 80048; 80053; 80061; 81001; 82550; 82553; 83605; 83735; 84439; 84443; 84481; 84484; 85025; 85027; 87040; 93005; 93010; 93880; 96360; 99285; J1644; J3490; J7030; J7120

== ENCOUNTER 2019-02-06 13:08 | Observation (INO) | payer MEDICARE, OTHER ==
[2019-02-06 13:52] LABS: ABSOLUTE EOSINOPHILS # (AUTO) 0.1 10^3/uL (0.0-0.6); ABSOLUTE MONOCYTES (AUTO) 1.3 10^3/uL (0.1-1.4); ABSOLUTE NEUT (AUTO) 6.9 10^3/uL (1.7-8.2); BASOPHILS % (AUTO) 0.1 % (0-2); EOSINOPHILS % (AUTO) 0.8 % (0-6); HEMATOCRIT 40.6 % (37.9-51.0); HEMOGLOBIN 13.4 g/dL (13.5-17.0); MEAN CORPUSCULAR HGB CONC 33.1 g/dL (32.0-36.0); MEAN CORPUSCULAR VOLUME 91 fl (80-97); MONOCYTES % (AUTO) 14.5 % (3-13); PLATELET COUNT 232 10^3/uL (150-450); RED BLOOD COUNT 4.48 10^6/uL (4.35-5.55); RED CELL DISTRIBUTION WIDTH 14.5 % (11.5-14.0); SEGMENTED NEUTROPHILS % (AUTO) 73.6 % (42-78); TOTAL CELLS COUNTED % (AUTO) 100 %; WHITE BLOOD COUNT 9.3 10^3/uL (4.0-10.5)
[2019-02-06 14:08] LABS: ALBUMIN 3.7 g/dL (3.5-5.0); ALKALINE PHOSPHATASE 66 U/L (38-126); ANION GAP 8 (5-19); ASPARTATE AMINO TRANSFERASE 31 U/L (17-59); BILIRUBIN,DIRECT 0.3 mg/dL (0.0-0.4); BILIRUBIN,TOTAL 1.3 mg/dL (0.2-1.3); BLOOD UREA NITROGEN 22 mg/dL (7-20); CALCIUM 9.3 mg/dL (8.4-10.2); CARBON DIOXIDE 31 mmol/L (22-30); CHLORIDE 99 mmol/L (98-107); GLUCOSE 108 mg/dL (75-110); POTASSIUM 4.1 mmol/L (3.6-5.0); TOTAL PROTEIN 7.3 g/dL (6.3-8.2)
--- NOTE | 2019-02-06 14:12 | RADIOLOGY REPORT (SQ) ---
EXAM DESCRIPTION: CHEST SINGLE VIEW COMPLETED DATE/TIME: 02/06/2019 1:59 pm REASON FOR STUDY: Shortness of breath COMPARISON: 01/24/2019 TECHNIQUE: Single frontal radiographic view of the chest acquired. NUMBER OF VIEWS: One view. LIMITATIONS: None. FINDINGS: LUNGS AND PLEURA: No pneumothorax. No consolidation or pleural effusion. MEDIASTINUM AND HILAR STRUCTURES: Stable. HEART AND VASCULAR STRUCTURES: Stable. BONES: No acute findings. HARDWARE: None in the chest. OTHER: No other significant finding. IMPRESSION: NO ACUTE FINDINGS. TECHNICAL DOCUMENTATION: JOB ID: [id number] [place]-72 2010 [employer]- All Rights Reserved Reading location - IP/workstation name: [email or web address]
[2019-02-06 15:24] LABS: APPEARANCE,URINE SLIGHTLY-CLOUDY; BILIRUBIN,URINE NEGATIVE (NEGATIVE); GLUCOSE, URINE NEGATIVE (NEGATIVE); KETONES,URINE TRACE mg/dL (NEGATIVE); LEUKOCYTE ESTERASE,URINE NEGATIVE (NEGATIVE); NITRITE,URINE NEGATIVE (NEGATIVE); PROTEIN,URINE 30 mg/dL (NEGATIVE); URINE SPECIFIC GRAVITY 1.025
[2019-02-06 15:25] LABS: COLOR,URINE DARK YELLOW
[2019-02-06 15:59] LABS: CREATINE KINASE MB 0.71 ng/mL (<4.55)
[2019-02-06 16:02] LABS: TROPONIN I < 0.012 ng/mL
--- NOTE | 2019-02-06 16:06 | ER Document Report ---
ED General - General Chief Complaint: General Weakness Stated Complaint: DIFFICULTY BREATHING Time Seen by Provider: 02/06/19 14:52 Primary Care Provider: REGAN ESPAÑA MD [Primary Care Provider] - Follow up as needed Notes: 78-year-old male brought in by EMS for sharp stabbing lower abdominal pain that onset today and are now gone. He denies any fevers, chills, nausea, vomiting or diarrhea. EMS run sheet states that he has had shortness of breath, patient denies this. EMS run sheet documents an O2 saturation of 86%, he does not normally use oxygen. Son and daughter both in the room and state that they called EMS because he is continuing to have weight loss, has lost 6 pounds over the past 3 to 4 days, states he is increasingly fatigued, sleeps throughout the entire day and then stays up at night and they have difficulty getting him to eat enough food during the day. They are also concerned because they have a CAT scan from the primary care physician ordered on the first that shows an enlarged prostate, an abdominal aortic aneurysm that is 3.6 x 2.7 x 5.1 cm, possible developing mesenteric ischemia and possible thickening of the pylorus. They do not know what they are supposed to do with all of these results. TRAVEL OUTSIDE OF THE [place] IN LAST 30 DAYS: No - Related Data Allergies/Adverse Reactions: Sulfa (Sulfonamide Antibiotics) Allergy (Verified 11/25/17 11:02) RASH Past Medical History - General Information source: Patient, Relative - Social History Smoking Status: Former Smoker Chew tobacco use (# tins/day): No Frequency of alcohol use: None Drug Abuse: None Lives with: Family Family History: Malignancy - Father Patient has suicidal ideation: No Patient has homicidal ideation: No - Past Medical History Cardiac Medical History: Reports: Hx Coronary Artery Disease, Hx Heart Attack - 1990, Hx Hypercholesterolemia, Hx Hypertension, Hx Peripheral Vascular Disease Denies: Hx Atrial Fibrillation Pulmonary Medical History: Denies: Hx Asthma, Hx Bronchitis, Hx COPD, Hx Pneumonia Neurological Medical History: Denies: Hx Cerebrovascular Accident, Hx Seizures Endocrine Medical History: Denies: Hx Diabetes Mellitus Type 1, Hx Diabetes Mellitus Type 2, Hx Hyperthyroidism, Hx Hypothyroidism Renal/ Medical History: Denies: Hx Peritoneal Dialysis Malignancy Medical History: Reports Hx 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 GI Medical History: Denies: Hx Cirrhosis, Hx Hepatitis Musculoskeletal Medical History: Denies Hx Arthritis, Denies Hx Gout Skin Medical History: Denies Hx Eczema, Denies Hx Psoriasis Psychiatric Medical History: Denies: Hx Depression Infectious Medical History: Denies: Hx Hepatitis Past Surgical History: Reports: Hx Carotid Endarterectomy, Other - Facial skin cancer surgery - Immunizations Hx Diphtheria, Pertussis, Tetanus Vaccination: Yes Hx Pneumococcal Vaccination: 04/05/17 Review of Systems - Review of Systems Constitutional: See HPI, Weakness EENT: No symptoms reported Cardiovascular: denies: Chest pain, Dizziness, Lightheaded Respiratory: See HPI, Short of breath. denies: Cough Gastrointestinal: See HPI Neurological/Psychological: See HPI - Sleep-wake cycle reversal. -: Yes All other systems reviewed and negative Physical Exam - Vital signs Vitals: Temp Resp Pulse Ox 98.3 F 19 97 02/06/19 13:15 02/06/19 13:15 02/06/19 13:15 - Notes Notes: GENERAL: Alert, interacts well. No acute distress. HEAD: Normocephalic, atraumatic EYES: Pupils equal, round and reactive to light, extraocular movements intact. ENT: Oral mucosa moist, tongue midline. NECK: Full range of motion, supple, trachea midline. LUNGS: Clear to auscultation bilaterally, no wheezes, rales or rhonchi, no respiratory distress. HEART: Regular rate and rhythm, no murmurs, gallops, rubs. ABDOMEN: Soft, nontender, nondistended, bowel sounds present in all 4 quadrants. EXTREMITIES: Moves all 4 extremities spontaneously, no edema, radial and dorsalis pedis pulses 2/4 bilaterally. No cyanosis. NEUROLOGICAL: Alert and oriented x2, knows his name and where he is however he thinks it is 2009 and does not know who the president is, normal speech, biceps and patellar DTRs 2+ bilaterally. PSYCH: Normal mood, normal affect. SKIN: Warm, Dry, normal turgor, no rashes or lesions noted. Course - Re-evaluation Re-evalutation: 02/06/19 19:25 CBC shows minimally low hemoglobin at 13.4 otherwise unremarkable, CMP shows slightly elevated BUN at 22, cardiac enzymes negative, total protein and albumin actually normal, thyroid function studies are normal, urinalysis shows trace ketones but no signs of infection. Chest x-ray does not show any acute process. CT scan of the abdomen and pelvis was repeated after reading the report from the outside facility that said possible developing mesenteric ischemia, CT scan does not show any evidence of mesenteric ischemia or inflammatory changes but it does show a 3.3 cm infrarenal abdominal aortic aneurysm without dissection, the renal arteries, SMA and celiac are without stenosis, it does not comment on the enlarged prostate. Patient was ambulated around the department and he was only able to walk approximately 15 feet before he became very short of breath and had to go back to his bed, he was not able to walk at all on his own he required significant assistance from nursing, when he returned to his bed his oxygen saturation was 86% on room air. Given his dyspnea on exertion and hypoxia without any wheezing or history of COPD. I will discuss with the hospitalist for admission and further evaluation. Patient has no risk factors for pulmonary embolism. 02/06/19 20:03 Dr. Cruz agrees to accept the patient to his service for observation on the medical floor given his hypoxia on exertion. - Vital Signs Vital signs: Temp Pulse Resp BP Pulse Ox 98.3 F 22 H 142/76 H 95 02/06/19 13:15 02/06/19 17:00 02/06/19 16:31 02/06/19 17:00 - Laboratory Result Diagrams: 02/06/19 13:38 02/06/19 13:38 Laboratory results interpreted by me: 02/06/19 02/06/19 02/06/19 13:38 13:38 13:38 Hgb 13.4 L RDW 14.5 H Lymphocytes % 11.0 L Monocytes % 14.5 H Carbon Dioxide 31 H BUN 22 H Creatine Kinase 38 L Urine Protein Urine Ketones Urine Urobilinogen 02/06/19 15:03 Hgb RDW Lymphocytes % Monocytes % Carbon Dioxide BUN Creatine Kinase Urine Protein 30 H Urine Ketones TRACE H Urine Urobilinogen 4.0 H Discharge - Discharge Clinical Impression: Hypoxia Condition: Stable Disposition: ADMITTED OBSERVATION Admitting Provider: Anthony (Hospitalist) Unit Admitted: Medical Floor Referrals: REGAN ESPAÑA MD [Primary Care Provider] - Follow up as needed
--- NOTE | 2019-02-06 16:50 | RADIOLOGY REPORT (SQ) ---
EXAM DESCRIPTION: CT ABD/PELVIS WITH IV ONLY COMPLETED DATE/TIME: 02/06/2019 4:28 pm REASON FOR STUDY: sharp lower abd pain COMPARISON: CT from [facility] dated 07/01/2017. TECHNIQUE: CT scan of the abdomen and pelvis performed using helical scanning technique with dynamic intravenous contrast injection. No oral contrast. Images reviewed with lung, soft tissue, and bone windows. Reconstructed coronal and sagittal MPR images reviewed. Delayed images for evaluation of the urinary system also acquired. All images stored on PACS. All CT scanners at this facility use dose modulation, iterative reconstruction, and/or weight based d osing when appropriate to reduce radiation dose to as low as reasonably achievable (ALARA). [facility]: Dose Right [facility]: CareDose [facility]: Dose Right [facility]: Teradose 4D [facility]: SOASTA CONTRAST TYPE AND DOSE: contrast/concentration: Isovue 350.00 mg/ml; Total Contrast Delivered: 78.0 ml; Total Saline Delivered: 67.0 ml RENAL FUNCTION: BUN 22 creatinine 0.87. RADIATION DOSE: CT Rad equipment meets quality standard of care and radiation dose reduction techniq ues were employed. CTDIvol: 7.5 - 10.6 mGy. DLP: 1105 mGy-cm.. LIMITATIONS: None. FINDINGS: LOWER CHEST: No significant findings. No nodules or infiltrates. LIVER: Normal size. No masses. No dilated ducts. SPLEEN: Normal size. No focal lesions. PANCREAS: No masses. No significant calcifications. No adjacent inflammation or peripancreatic fluid collections. Pancreatic duct not dilated. GALLBLADDER: No identified stones by CT criteria. No inflammatory changes to suggest cholecystitis. ADRENAL GLANDS: No significant masses or asymmetry. RIGHT KIDNEY AND URETER: No solid masses. No significant calcifications. No hydronephrosis or hyd roureter. LEFT KIDNEY AND URETER: No solid masses. No significant calcifications. No hydronephrosis or hydr oureter. AORTA AND VESSELS: 3.3 cm infrarenal abdominal aortic aneurysm. No dissection. Renal arteries, SMA, c eliac without stenosis. RETROPERITONEUM: No retroperitoneal adenopathy, hemorrhage or masses. BOWEL AND PERITONEAL CAVITY: Scattered colonic diverticuli. Contrast in the colon. No masses or inf lammatory changes. No free fluid or peritoneal masses. APPENDIX: Normal. PELVIS: No mass. No free fluid. Normal bladder. ABDOMINAL WALL: No masses. No hernias. BONES: No significant or acute findings. OTHER: No other significant finding. IMPRESSION: 1. 3.3 CM INFRARENAL ABDOMINAL AORTIC ANEURYSM, UNCHANGED. 2. SCATTERED COLONIC DIVERTICULOSIS. NO EVIDENCE OF DIVERTICULITIS. CONTRAST IS PRESENT IN THE COLO N BUT WAS NOT ADMINISTERED AT THIS FACILITY SO MUST HAVE BEEN EVALUATED PREVIOUSLY AT ANOTHER FACILIT Y. 3. NO OTHER SIGNIFICANT OR ACUTE FINDING IN THE ABDOMEN OR PELVIS ON CT SCAN WITH IV CONTRAST. TECHNICAL DOCUMENTATION: JOB ID: [id number] Quality ID # [id number]: Final reports with documentation of one or more dose reduction techniques (e.g., Au tomated exposure control, adjustment of the mA and/or kV according to patient size, use of iterative reconstruction technique) 2010 [employer]- All Rights Reserved Reading location - IP/workstation name: [email or web address]
[2019-02-06 17:46] LABS: FREE T3 3.1 pg/mL (2.77-5.27); FREE T4 (FREE THYROXINE) 1.37 ng/dL (0.78-2.19)
[2019-02-06 18:00] LABS: THYROID STIMULATING HORMONE 0.83 uIU/mL (0.47-4.68)
[2019-02-06] MEDS ORDERED: NORMAL SALINE 1000 ML 1,000 ML IV ONE (19:08)
[2019-02-06] MEDS ORDERED: LACTULOSE SYRUP 20 GM/30 ML UDCUP PO ONE ×2 (20:03→22:06)
[2019-02-06] MEDS ORDERED: MAG HYDROX/AL HYDROX/SIMETH SUSP 30 ML UDCUP PO PRN (20:03)
[2019-02-06] MEDS ORDERED: ACETAMINOPHEN 325 MG TABLET PO PRN (20:03)
[2019-02-06] MEDS ORDERED: IPRATROPIUM/ALBUTEROL 0.5-2.5 MG/3 ML AMPUL NEB PRN (20:03)
[2019-02-06] MEDS ORDERED: MAGNESIUM HYDROXIDE SUSP 30 ML UDCUP PO PRN (20:03)
[2019-02-06] MEDS ORDERED: IPRATROPIUM/ALBUTEROL 0.5-2.5 MG/3 ML AMPUL NEB ONE ×2 (20:29→20:45)
[2019-02-06] MEDS: NORMAL SALINE 1000 ML 1,000 ML IV PRN (22:14)
[2019-02-06] MEDS ORDERED: FLUTICASONE NASAL SPRAY 50 MCG/SPRY 120 SPRAY/16 GM NASL ONE (23:00)
--- NOTE | 2019-02-06 23:04 | EKG REPORT ---
SEVERITY:- ABNORMAL ECG - SINUS RHYTHM INFERIOR INFARCT, OLD : Confirmed by: Amelia Sena MD 06-Feb-2019 23:03:50
[2019-02-06] MEDS: HEPARIN SOD (PORCINE) 5,000 UNIT/ML 1 ML VIAL SUBCUT SCH (23:17)
[2019-02-06] MEDS: CHLORPHENIRAMINE MALEATE 4 MG TABLET PO SCH (23:22)
[2019-02-07 02:55] LABS: ABSOLUTE EOSINOPHILS # (AUTO) 0.1 10^3/uL (0.0-0.6); ABSOLUTE MONOCYTES (AUTO) 1.2 10^3/uL (0.1-1.4); ABSOLUTE NEUT (AUTO) 5.4 10^3/uL (1.7-8.2); BASOPHILS % (AUTO) 0.3 % (0-2); EOSINOPHILS % (AUTO) 0.9 % (0-6); HEMATOCRIT 37.9 % (37.9-51.0); HEMOGLOBIN 12.7 g/dL (13.5-17.0); LYMPHOCYTES % (AUTO) 13.4 % (13-45); MEAN CORPUSCULAR HEMOGLOBIN 30.1 pg (27.0-33.4); MEAN CORPUSCULAR HGB CONC 33.4 g/dL (32.0-36.0); MEAN CORPUSCULAR VOLUME 90 fl (80-97); MONOCYTES % (AUTO) 15.7 % (3-13); PLATELET COUNT 187 10^3/uL (150-450); RED BLOOD COUNT 4.21 10^6/uL (4.35-5.55); RED CELL DISTRIBUTION WIDTH 14.4 % (11.5-14.0); SEGMENTED NEUTROPHILS % (AUTO) 69.7 % (42-78); TOTAL CELLS COUNTED % (AUTO) 100 %; WHITE BLOOD COUNT 7.7 10^3/uL (4.0-10.5)
[2019-02-07 03:26] LABS: ANION GAP 11 (5-19); BLOOD UREA NITROGEN 16 mg/dL (7-20); CALCIUM 9.2 mg/dL (8.4-10.2); CARBON DIOXIDE 26 mmol/L (22-30); CHLORIDE 103 mmol/L (98-107); GLUCOSE 99 mg/dL (75-110); POTASSIUM 3.7 mmol/L (3.6-5.0)
--- NOTE | 2019-02-07 03:28 | PDOC H&P ---
History of Present Illness Admission Date/PCP: 02/06/19 20:08 REGAN ESPAÑA MD Patient complains of: Abdominal pain and fatigue History of Present Illness: COSTA MARTÍNEZ is a 78 year old male with past medical history of coronary artery disease, hypertension dyslipidemia and peripheral vascular disease who presents with 72 hours of poor appetite, fatigue, generalized weakness, abdominal pain worsened by deep breathing with sharp nonradiating pain prompting evaluation emergency room. He is found to have hypoxia prompting CTA chest negative for PE but remarkable for severe constipation and a questionably enlarged pylorus. He denies nausea or vomiting, admits to constipation, chronic rhinorrhea and postnasal drip with nonproductive cough. He is referred to the hospitalist for admission. Past Medical History Cardiac Medical History: Reports: Coronary Artery Disease, Myocardial Infarction - 1990, Hyperlipidema, Hypertension, Peripheral Vascular Disease Denies: Atrial Fibrillation Pulmonary Medical History: Denies: Asthma, Bronchitis, Chronic Obstructive Pulmonary Disease (COPD), Pneumonia Neurological Medical History: Denies: Seizures Endocrine Medical History: Denies: Diabetes Mellitus Type 1, Diabetes Mellitus Type 2, Hyperthyroidism, Hypothyroidism Malignancy Medical History: Reports: 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 GI Medical History: Denies: Cirrhosis, Hepatitis Musculoskeltal Medical History: Denies: Arthritis, Gout Skin Medical History: Denies: Eczema, Psoriasis Psychiatric Medical History: Denies: Depression Hematology: Denies: Anemia, Bleeding Tendencies Past Surgical History Past Surgical History: Reports: Carotid Endarterectomy, Other - Facial skin cancer surgery Social History Information Source: Patient Lives with: Family Smoking Status: Former Smoker Frequency of Alcohol Use: None Hx Recreational Drug Use: No Drugs: None Hx Prescription Drug Abuse: No - Advance Directive Resuscitation Status: Full Code Family History Family History: Malignancy - Father Parental Family History Reviewed: Yes Children Family History Reviewed: Yes Sibling(s) Family History Reviewed.: Yes Medication/Allergy Home Medications: Amlodipine Besylate [Norvasc 5 mg Tablet] 5 mg PO DAILY 11/21/18 Atenolol [Tenormin 50 mg Tablet] 25 mg PO DAILY 11/21/18 Rosuvastatin Calcium [Crestor 20 mg Tablet] 20 mg PO DAILY 11/21/18 Aspirin [Aspirin 81 mg Chewable Tablet] 81 mg PO DAILY #1 pkg 11/22/18 Allergies/Adverse Reactions: Sulfa (Sulfonamide Antibiotics) Allergy (Verified 11/25/17 11:02) RASH Review of Systems Constitutional: PRESENT: as per HPI, anorexia, fatigue, weakness Eyes: ABSENT: visual disturbances Ears: ABSENT: hearing changes Cardiovascular: PRESENT: dyspnea on exertion. ABSENT: chest pain, edema, orthropnea, palpitations Respiratory: PRESENT: dyspnea. ABSENT: cough, hemoptysis Gastrointestinal: PRESENT: as per HPI, abdominal pain, bloating, constipation. ABSENT: nausea, vomiting Genitourinary: ABSENT: dysuria, hematuria Musculoskeletal: PRESENT: muscle weakness Neurological: ABSENT: abnormal gait, abnormal speech, confusion, dizziness, focal weakness, syncope Psychiatric: ABSENT: anxiety, depression, homidical ideation, suicidal ideation Endocrine: ABSENT: cold intolerance, heat intolerance, polydipsia, polyuria Hematologic/Lymphatic: ABSENT: easy bleeding, easy bruising Physical Exam Vital Signs: Temp Pulse Resp BP Pulse Ox 98.2 F 89 16 147/71 H 96 02/06/19 23:00 02/06/19 23:00 02/06/19 23:00 02/06/19 23:00 02/06/19 23:00 Intake & Output 02/05/19 02/06/19 02/07/19 11:59 11:59 11:59 Intake Total 1240 Balance 1240 Weight 68.1 kg General appearance: PRESENT: cooperative, well-developed, well-nourished. ABSENT: mild distress Head exam: PRESENT: atraumatic, normocephalic Eye exam: PRESENT: conjunctiva pink, EOMI, PERRLA, other - Complains of cough, rhinorrhea. ABSENT: scleral icterus Ear exam: PRESENT: normal external ear exam Mouth exam: PRESENT: moist, tongue midline Neck exam: ABSENT: carotid bruit, JVD, lymphadenopathy, thyromegaly Respiratory exam: PRESENT: clear to auscultation harriet, crackles, prolonged expiratory phas. ABSENT: rales, rhonchi, wheezes Cardiovascular exam: PRESENT: RRR. ABSENT: diastolic murmur, rubs, systolic murmur Pulses: PRESENT: normal dorsalis pedis pul Vascular exam: PRESENT: normal capillary refill GI/Abdominal exam: PRESENT: diminished bowel sounds, distended, hypoactive bowel sounds. ABSENT: guarding, tenderness Rectal exam: PRESENT: deferred Extremities exam: PRESENT: full ROM. ABSENT: calf tenderness, clubbing, pedal edema Neurological exam: PRESENT: alert, awake, oriented to person, oriented to place, oriented to time, oriented to situation, CN II-XII grossly intact. ABSENT: motor sensory deficit Psychiatric exam: PRESENT: appropriate affect, normal mood. ABSENT: homicidal ideation, suicidal ideation Skin exam: PRESENT: dry, intact, warm. ABSENT: cyanosis, rash Results Laboratory Results: 02/07/19 02:34 02/06/19 02/06/19 02/06/19 13:38 13:38 13:38 WBC 9.3 RBC 4.48 Hgb 13.4 L Hct 40.6 MCV 91 MCH 30.0 MCHC 33.1 RDW 14.5 H Plt Count 232 Seg Neutrophils % 73.6 Lymphocytes % 11.0 L Monocytes % 14.5 H Eosinophils % 0.8 Basophils % 0.1 Absolute Neutrophils 6.9 Absolute Lymphocytes 1.0 Absolute Monocytes 1.3 Absolute Eosinophils 0.1 Absolute Basophils 0.0 Sodium 138.1 Potassium 4.1 Chloride 99 Carbon Dioxide 31 H Anion Gap 8 BUN 22 H Creatinine 0.87 Est GFR ( Amer) > 60 Est GFR (Non-Af Amer) > 60 Glucose 108 Lactic Acid 1.2 Calcium 9.3 Total Bilirubin 1.3 AST 31 Alkaline Phosphatase 66 Total Protein 7.3 Albumin 3.7 TSH Free T4 Free T3 pg/mL Urine Color Urine Appearance Urine pH Ur Specific [place] Urine Protein Urine Glucose (UA) Urine Ketones Urine Blood Urine Nitrite Ur Leukocyte Esterase Urine WBC (Auto) Urine RBC (Auto) 02/06/19 02/06/19 02/06/19 15:03 17:03 20:57 WBC RBC Hgb Hct MCV MCH MCHC RDW Plt Count Seg Neutrophils % Lymphocytes % Monocytes % Eosinophils % Basophils % Absolute Neutrophils Absolute Lymphocytes Absolute Monocytes Absolute Eosinophils Absolute Basophils Sodium Potassium Chloride Carbon Dioxide Anion Gap BUN Creatinine Est GFR ( Amer) Est GFR (Non-Af Amer) Glucose Lactic Acid Calcium Total Bilirubin AST Alkaline Phosphatase Total Protein Albumin TSH 0.83 0.91 Free T4 1.37 Free T3 pg/mL 3.10 Urine Color DARK YELLOW Urine Appearance SLIGHTLY-CLOUDY Urine pH 6.0 Ur Specific [place] 1.025 Urine Protein 30 H Urine Glucose (UA) NEGATIVE Urine Ketones TRACE H Urine Blood NEGATIVE Urine Nitrite NEGATIVE Ur Leukocyte Esterase NEGATIVE Urine WBC (Auto) 2 Urine RBC (Auto) 3 02/07/19 02:34 WBC 7.7 RBC 4.21 L Hgb 12.7 L Hct 37.9 MCV 90 MCH 30.1 MCHC 33.4 RDW 14.4 H Plt Count 187 Seg Neutrophils % 69.7 Lymphocytes % 13.4 Monocytes % 15.7 H Eosinophils % 0.9 Basophils % 0.3 Absolute Neutrophils 5.4 Absolute Lymphocytes 1.0 Absolute Monocytes 1.2 Absolute Eosinophils 0.1 Absolute Basophils 0.0 Sodium Potassium Chloride Carbon Dioxide Anion Gap BUN Creatinine Est GFR ( Amer) Est GFR (Non-Af Amer) Glucose Lactic Acid Calcium Total Bilirubin AST Alkaline Phosphatase Total Protein Albumin TSH Free T4 Free T3 pg/mL Urine Color Urine Appearance Urine pH Ur Specific [place] Urine Protein Urine Glucose (UA) Urine Ketones Urine Blood Urine Nitrite Ur Leukocyte Esterase Urine WBC (Auto) Urine RBC (Auto) 02/06/19 02/06/19 02/06/19 13:38 13:38 20:57 Creatine Kinase 38 L CK-MB (CK-2) 0.71 Troponin I < 0.012 < 0.012 Impressions: Chest X-Ray 02/06/19 13:46 IMPRESSION: NO ACUTE FINDINGS. Abdomen/Pelvis CT 02/06/19 15:26 IMPRESSION: 1. 3.3 CM INFRARENAL ABDOMINAL AORTIC ANEURYSM, UNCHANGED. 2. SCATTERED COLONIC DIVERTICULOSIS. NO EVIDENCE OF DIVERTICULITIS. CONTRAST IS PRESENT IN THE COLON BUT WAS NOT ADMINISTERED AT THIS FACILITY SO MUST HAVE BEEN EVALUATED PREVIOUSLY AT ANOTHER FACILITY. 3. NO OTHER SIGNIFICANT OR ACUTE FINDING IN THE ABDOMEN OR PELVIS ON CT SCAN W ITH IV CONTRAST. Assessment and Plan - Diagnosis (1) Acute sinusitis Is this a current diagnosis for this admission?: Yes Plan: Likely allergic, Flonase, chlorpheniramine, DuoNeb and supplemental oxygen with incentive spirometry given cough and limited mobility (2) Constipation Is this a current diagnosis for this admission?: Yes Plan: Admits constipation, Fleet enema, lactulose, bowel regiment and education (3) Abdominal pain Is this a current diagnosis for this admission?: Yes Plan: Secondary to #2, (4) Generalized weakness Is this a current diagnosis for this admission?: Yes Plan: Physical therapy evaluation - Time Time Spent with patient: 25-34 minutes
[2019-02-07] MEDS: CHLORPHENIRAMINE MALEATE 4 MG TABLET PO SCH ×3 (06:01→17:42)
[2019-02-07] MEDS: HEPARIN SOD (PORCINE) 5,000 UNIT/ML 1 ML VIAL SUBCUT SCH ×3 (06:01→22:05)
[2019-02-07] MEDS: IPRATROPIUM/ALBUTEROL 0.5-2.5 MG/3 ML AMPUL NEB SCH ×2 (09:29→20:54)
[2019-02-07] MEDS: DOCUSATE SODIUM 100 MG CAPSULE PO SCH ×2 (10:30→17:42)
[2019-02-07] MEDS: FLUTICASONE NASAL SPRAY 50 MCG/SPRY 120 SPRAY/16 GM NASL SCH ×2 (10:30→22:05)
--- NOTE | 2019-02-07 14:39 | RADIOLOGY REPORT (SQ) ---
EXAM DESCRIPTION: CTA CHEST COMPLETED DATE/TIME: 02/07/2019 2:21 pm REASON FOR STUDY: dyspnea, hypoxia, elevated d.dimer R06.00 DYSPNEA, UNSPECIFIED COMPARISON: None. TECHNIQUE: CT scan of the chest performed using helical scanning technique with dynamic intravenous contrast injection. Images reviewed with lung, soft tissue and bone windows. Reconstructed coronal and sagittal MPR images reviewed. Additional 3 dimensional post-processing performed to develop Maximal Intensity Projection images (NM P). All images stored on PACS. All CT scanners at this facility use dose modulation, iterative reconstruction, and/or weight based d osing when appropriate to reduce radiation dose to as low as reasonably achievable (ALARA). [facility]: Dose Right [facility]: CareDose [facility]: Dose Right [facility]: Teradose 4D [facility]: PayEase CONTRAST TYPE AND DOSE: contrast/concentration: Isovue 350.00 mg/ml; Total Contrast Delivered: 63.0 ml; Total Saline Delivered: 80.0 ml Contrast bolus optimized for the pulmonary arteries. Not diagnostic for the aorta. RENAL FUNCTION: Creatinine 0.7 RADIATION DOSE: CT Rad equipment meets quality standard of care and radiation dose reduction techniq ues were employed. CTDIvol: 13.6 - 26.3 mGy. DLP: 514 mGy-cm. . LIMITATIONS: None. FINDINGS: LUNGS AND PLEURA: No masses, infiltrates, or pneumothorax. No pleural effusions or pleura l calcifications. AORTA AND GREAT VESSELS: No aneurysm. Contrast bolus not optimized for the aorta. HEART: No pericardial effusion. Marked coronary artery calcifications. PULMONARY ARTERIES: No emboli visualized in the main pulmonary arteries or the segmental branches. HILAR AND MEDIASTINAL STRUCTURES: No identified masses or abnormal nodes. HARDWARE: None in the chest. UPPER ABDOMEN: No significant findings. Limited exam. THYROID AND OTHER SOFT TISSUES: No masses. No adenopathy. BONES: No acute or significant finding. 3D MIPS: Confirm above findings. OTHER: No other significant finding. IMPRESSION: NORMAL CTA OF THE CHEST. NO PULMONARY EMBOLI. COMMENT: Quality ID # [id number]: Final reports with documentation of one or more dose reduction techniques (e.g., Automated exposure control, adjustment of the mA and/or kV according to patient size, use of iterative reconstruction technique) TECHNICAL DOCUMENTATION: JOB ID: [id number] [employer]- All Rights Reserved Reading location - IP[facility]workstation name: [email or web address]
--- NOTE | 2019-02-07 18:53 | PDOC PROGRESS REPORT ---
Subjective Progress Note for:: 02/07/19 Subjective:: COSTA MARTÍNEZ is a 78 year old male with past medical history of coronary artery disease, hypertension dyslipidemia and peripheral vascular disease who was admitted 02/06/19 for acute sinusitis and generalized weakness. The patient was seen on afternoon rounds. He was found resting in bed comfortably on supplemental oxygen. His oxygen was turned off and continued to maintain saturations in the mid 90s while conversational without increased work of breathing. Patient's daughter was present reports that the primary cause for having the patient evaluated in the emergency department last night was progressively worsening shortness of breath and generalized weakness. We discussed his overall unremarkable work-up. He does remain concerned that the patient becomes severely dyspneic on exertion and was only able to take 4-5 steps with physical therapy today. Patient denies headaches, dizziness, blurred vision, focal deficits, chest pain, palpitations, orthopnea, cough, nausea vomiting diarrhea, and dependent edema. They have many questions and concerns at this time; reassurance provided. No concerns per nursing. Reason For Visit: SOB, WEIGHT LOSS, ABD PAIN Physical Exam Vital Signs: Temp Pulse Resp BP Pulse Ox 97.6 F 96 13 125/67 97 02/07/19 11:22 02/07/19 11:22 02/07/19 11:22 02/07/19 11:22 02/07/19 11:22 Intake & Output 02/06/19 02/07/19 02/08/19 06:59 06:59 06:59 Intake Total 1240 1000 Balance 1240 1000 Weight 68.1 kg General appearance: PRESENT: no acute distress, cooperative, well-developed, well-nourished Head exam: PRESENT: atraumatic, normocephalic Eye exam: PRESENT: conjunctiva pink, EOMI, PERRLA. ABSENT: scleral icterus Ear exam: PRESENT: normal external ear exam Mouth exam: PRESENT: moist, tongue midline Neck exam: ABSENT: carotid bruit, JVD, lymphadenopathy, thyromegaly Respiratory exam: PRESENT: clear to auscultation harriet, symmetrical, unlabored. ABSENT: rales, rhonchi, wheezes Cardiovascular exam: PRESENT: RRR, +S1, +S2. ABSENT: diastolic murmur, rubs, systolic murmur Pulses: PRESENT: normal dorsalis pedis pul Vascular exam: PRESENT: normal capillary refill GI/Abdominal exam: PRESENT: normal bowel sounds, soft. ABSENT: distended, guarding, mass, organolmegaly, rebound, tenderness Rectal exam: PRESENT: deferred Extremities exam: PRESENT: full ROM. ABSENT: calf tenderness, clubbing, pedal edema Neurological exam: PRESENT: alert, awake, oriented to person, oriented to place, oriented to time, oriented to situation, CN II-XII grossly intact. ABSENT: motor sensory deficit Psychiatric exam: PRESENT: appropriate affect, normal mood. ABSENT: homicidal ideation, suicidal ideation Skin exam: PRESENT: dry, intact, warm. ABSENT: cyanosis, rash Results Laboratory Results: 02/07/19 02:34 02/07/19 02:34 02/06/19 02/07/19 02/07/19 20:57 02:34 02:34 WBC 7.7 RBC 4.21 L Hgb 12.7 L Hct 37.9 MCV 90 MCH 30.1 MCHC 33.4 RDW 14.4 H Plt Count 187 Seg Neutrophils % 69.7 Lymphocytes % 13.4 Monocytes % 15.7 H Eosinophils % 0.9 Basophils % 0.3 Absolute Neutrophils 5.4 Absolute Lymphocytes 1.0 Absolute Monocytes 1.2 Absolute Eosinophils 0.1 Absolute Basophils 0.0 Sodium 139.6 Potassium 3.7 Chloride 103 Carbon Dioxide 26 Anion Gap 11 BUN 16 Creatinine 0.69 Est GFR ( Amer) > 60 Est GFR (Non-Af Amer) > 60 Glucose 99 Calcium 9.2 TSH 0.91 02/06/19 02/06/19 02/06/19 13:38 13:38 20:57 Creatine Kinase 38 L CK-MB (CK-2) 0.71 Troponin I < 0.012 < 0.012 NT-Pro-B Natriuret Pep 02/07/19 02/07/19 02/07/19 02:34 09:30 09:30 Creatine Kinase CK-MB (CK-2) Troponin I 0.013 < 0.012 NT-Pro-B Natriuret Pep 497 H Impressions: Chest X-Ray 02/06/19 13:46 IMPRESSION: NO ACUTE FINDINGS. Abdomen/Pelvis CT 02/06/19 15:26 IMPRESSION: 1. 3.3 CM INFRARENAL ABDOMINAL AORTIC ANEURYSM, UNCHANGED. 2. SCATTERED COLONIC DIVERTICULOSIS. NO EVIDENCE OF DIVERTICULITIS. CONTRAST IS PRESENT IN THE COLON BUT WAS NOT ADMINISTERED AT THIS FACILITY SO MUST HAVE BEEN EVALUATED PREVIOUSLY AT ANOTHER FACILITY. 3. NO OTHER SIGNIFICANT OR ACUTE FINDING IN THE ABDOMEN OR PELVIS ON CT SCAN WITH IV CONTRAST. Chest/Abdomen CTA 02/07/19 00:00 IMPRESSION: NORMAL CTA OF THE CHEST. NO PULMONARY EMBOLI. Assessment and Plan - Diagnosis (1) Acute sinusitis Is this a current diagnosis for this admission?: Yes Plan: Improved; patient denies symptoms this afternoon. Likely allergic, Flonase, chlorpheniramine, DuoNeb, pulmonary toilet No indications for antibiotic therapy at this time. (2) Constipation Is this a current diagnosis for this admission?: Yes Plan: Admits constipation, Fleet enema, lactulose, bowel regiment and education (3) Abdominal pain Is this a current diagnosis for this admission?: Yes Plan: Secondary to #2 CT ABD/Pelvis is benign Currently on clear liquid diet; advance as tolerated (4) Generalized weakness Is this a current diagnosis for this admission?: Yes Plan: Physical therapy evaluation Discharge planning is consulted; will require home health nursing, PT/OT (5) Dyspnea Qualifiers: Dyspnea type: dyspnea on exertion Qualified Code(s): R06.09 - Other forms of dyspnea Is this a current diagnosis for this admission?: Yes Plan: Maintaining oxygen saturation on room air at rest. Complains of significant dyspnea and profound weakness w/ minimal exertion. CTA of the chest is negative for acute findings. Echocardiogram pending. Troponins are negative. proBNP is minimally elevated. Will obtain overnight pulse oximetry. We will evaluate for high output systolic heart failure/pulmonary hypertension with echocardiogram. Supplemental oxygen as needed. As needed nebulizer treatments. Pulmonary toilet. - Time Time Spent with patient: 25-34 minutes Medications reviewed and adjusted accordingly: Yes Anticipated discharge: Home with Homehealth Within: within 24 hours
--- NOTE | 2019-02-07 18:54 | Progress Note Acknowledgement ---
Progress Note Acknowledgement Progess Note Acknowledgement: I, the undersigned member of the medical staff with appropriate privileges and with supervisory authority over Tatyana Garcia, a [facility] practice allied health professional, acknowledge that I have reviewed the progress notes entered on this patient, and in my professional judgment believe that the assessment made and/or any care evidenced was appropriate
[2019-02-07] MEDS ORDERED: (PENDING PHARMACY ID) (Citalopram Hydrobromide [Citalopram Hbr] 10 MG) PO SCH (22:00)
[2019-02-07] MEDS: CITALOPRAM HYDROBROMIDE 20 MG TABLET PO SCH (22:04)
[2019-02-07] MEDS: NORMAL SALINE 1000 ML 1,000 ML IV PRN (22:04)
[2019-02-07] MEDS: ATORVASTATIN CALCIUM 40 MG TABLET PO SCH (22:05)
[2019-02-08] MEDS: HEPARIN SOD (PORCINE) 5,000 UNIT/ML 1 ML VIAL SUBCUT SCH ×3 (05:42→22:16)
[2019-02-08] MEDS: NORMAL SALINE 1000 ML 1,000 ML IV PRN ×2 (05:42→16:33)
[2019-02-08] MEDS: PANTOPRAZOLE SODIUM 40 MG TABLET.DR PO SCH (05:42)
[2019-02-08 05:49] LABS: HEMOGLOBIN 12.8 g/dL (13.5-17.0); MEAN CORPUSCULAR HEMOGLOBIN 30.3 pg (27.0-33.4); MEAN CORPUSCULAR HGB CONC 33.6 g/dL (32.0-36.0); MEAN CORPUSCULAR VOLUME 90 fl (80-97); PLATELET COUNT 206 10^3/uL (150-450); RED BLOOD COUNT 4.21 10^6/uL (4.35-5.55); RED CELL DISTRIBUTION WIDTH 14.6 % (11.5-14.0)
[2019-02-08 06:03] LABS: ANION GAP 11 (5-19); BLOOD UREA NITROGEN 7 mg/dL (7-20); CALCIUM 9.3 mg/dL (8.4-10.2); CARBON DIOXIDE 27 mmol/L (22-30); CHLORIDE 101 mmol/L (98-107); GLUCOSE 118 mg/dL (75-110); POTASSIUM 3.5 mmol/L (3.6-5.0)
[2019-02-08] MEDS: IPRATROPIUM/ALBUTEROL 0.5-2.5 MG/3 ML AMPUL NEB SCH ×2 (07:58→19:48)
[2019-02-08] MEDS ORDERED: (PENDING PHARMACY ID) (Rosuvastatin Calcium [Crestor 20 Mg Tablet] 20 MG) PO SCH (10:00)
[2019-02-08] MEDS ORDERED: (PENDING PHARMACY ID) (Esomeprazole Mag Trihydrate [Nexium] 40 MG) PO SCH (10:00)
[2019-02-08] MEDS: FLUTICASONE NASAL SPRAY 50 MCG/SPRY 120 SPRAY/16 GM NASL SCH ×2 (10:23→22:16)
[2019-02-08] MEDS: ATENOLOL 50 MG TABLET PO SCH (10:24)
[2019-02-08] MEDS: DOCUSATE SODIUM 100 MG CAPSULE PO SCH ×2 (10:25→17:52)
[2019-02-08] MEDS: HYDROCHLOROTHIAZIDE 25 MG TABLET PO SCH (10:25)
[2019-02-08] MEDS: AMLODIPINE BESYLATE 5 MG TABLET PO SCH (10:25)
[2019-02-08] MEDS ORDERED: POLYETHYLENE GLYCOL 3350 POWDER 17 GM/1 PACKET PO PRN (11:43)
--- NOTE | 2019-02-08 11:46 | Progress Note Acknowledgement ---
Progress Note Acknowledgement Progess Note Acknowledgement: I, the undersigned member of the medical staff with appropriate privileges and with supervisory authority over [Charles Cedeno], a dependent practice allied health professional, acknowledge that I have reviewed the progress notes entered on this patient, and in my professional judgment believe that the assessment made and/or any care evidenced was appropriate
--- NOTE | 2019-02-08 11:46 | PDOC PROGRESS REPORT ---
Subjective Progress Note for:: 02/08/19 Subjective:: February 08, 2019-no complaints per patient or family. Reason For Visit: SOB, WEIGHT LOSS, ABD PAIN Physical Exam Vital Signs: Temp Pulse Resp BP Pulse Ox 98.5 F 77 16 132/46 H 96 02/07/19 20:00 02/08/19 07:58 02/08/19 07:58 02/07/19 20:00 02/08/19 07:58 Pulse Oximeter Nocturnal Start: 02/07/19 18:48 Freq: RTQ4 Status: Complete Protocol: Document 02/08/19 06:45 CMI (Rec: 02/08/19 06:45 CMI [email or web address]) Nocturnal Pulse Oximetry Equipment Usage Equipment Discontinued Continuous SpO2 Machine # 6 Intake & Output 02/07/19 02/08/19 02/09/19 06:59 06:59 06:59 Intake Total 1240 2683 Output Total 200 Balance 1240 2483 Weight 68.1 kg 57.7 kg General appearance: PRESENT: no acute distress, well-developed, well-nourished Neck exam: ABSENT: carotid bruit, JVD, lymphadenopathy, thyromegaly Respiratory exam: PRESENT: clear to auscultation harriet. ABSENT: rales, rhonchi, wheezes Cardiovascular exam: PRESENT: RRR. ABSENT: diastolic murmur, rubs, systolic murmur Pulses: PRESENT: +1 pedal pulses bilateral Vascular exam: PRESENT: normal capillary refill GI/Abdominal exam: PRESENT: normal bowel sounds, soft. ABSENT: distended, guarding, mass, organolmegaly, rebound, tenderness Extremities exam: PRESENT: full ROM. ABSENT: calf tenderness, clubbing, pedal edema Neurological exam: PRESENT: alert, awake Psychiatric exam: PRESENT: appropriate affect Skin exam: PRESENT: dry, intact, warm. ABSENT: cyanosis, rash Results Laboratory Results: 02/08/19 05:33 02/08/19 05:33 02/08/19 02/08/19 05:33 05:33 WBC 8.0 RBC 4.21 L Hgb 12.8 L Hct 38.0 MCV 90 MCH 30.3 MCHC 33.6 RDW 14.6 H Plt Count 206 Sodium 138.6 Potassium 3.5 L Chloride 101 Carbon Dioxide 27 Anion Gap 11 BUN 7 Creatinine 0.65 Est GFR ( Amer) > 60 Est GFR (Non-Af Amer) > 60 Glucose 118 H Calcium 9.3 02/06/19 02/06/19 02/06/19 13:38 13:38 20:57 Creatine Kinase 38 L CK-MB (CK-2) 0.71 Troponin I < 0.012 < 0.012 NT-Pro-B Natriuret Pep 02/07/19 02/07/19 02/07/19 02:34 09:30 09:30 Creatine Kinase CK-MB (CK-2) Troponin I 0.013 < 0.012 NT-Pro-B Natriuret Pep 497 H Impressions: Chest X-Ray 02/06/19 13:46 IMPRESSION: NO ACUTE FINDINGS. Abdomen/Pelvis CT 02/06/19 15:26 IMPRESSION: 1. 3.3 CM INFRARENAL ABDOMINAL AORTIC ANEURYSM, UNCHANGED. 2. SCATTERED COLONIC DIVERTICULOSIS. NO EVIDENCE OF DIVERTICULITIS. CONTRAST IS PRESENT IN THE COLON BUT WAS NOT ADMINISTERED AT THIS FACILITY SO MUST HAVE BEEN EVALUATED PREVIOUSLY AT ANOTHER FACILITY. 3. NO OTHER SIGNIFICANT OR ACUTE FINDING IN THE ABDOMEN OR PELVIS ON CT SCAN WITH IV CONTRAST. Chest/Abdomen CTA 02/07/19 00:00 IMPRESSION: NORMAL CTA OF THE CHEST. NO PULMONARY EMBOLI. Assessment and Plan - Diagnosis (1) Acute sinusitis Is this a current diagnosis for this admission?: Yes Plan: Improved; patient denies symptoms this afternoon. Likely allergic, Flonase, chlorpheniramine, DuoNeb, pulmonary toilet No indications for antibiotic therapy at this time. 02/08/2019-improved continue patient on Flonase chlorphentermine, duo nebs. (2) Constipation Is this a current diagnosis for this admission?: Yes Plan: Admits constipation, Fleet enema, lactulose, bowel regiment and education February 08, 2019-patient had bowel movement since fleets enema, lactulose and bowel regimen yesterday. Place patient on MiraLAX 17 g p.o. daily at this time (3) Abdominal pain Is this a current diagnosis for this admission?: Yes Plan: Secondary to #2 CT ABD/Pelvis is benign Currently on clear liquid diet; advance as tolerated February 08, 2019-denies abdominal pain at this time. Continue medication for constipation. MiraLAX 17 g p.o. daily (4) Generalized weakness Is this a current diagnosis for this admission?: Yes Plan: Physical therapy evaluation Discharge planning is consulted; will require home health nursing, PT/OT February 08, 2019-awaiting physical therapy and Occupational Therapy recommendations. (5) Dyspnea Qualifiers: Dyspnea type: dyspnea on exertion Qualified Code(s): R06.09 - Other forms of dyspnea Is this a current diagnosis for this admission?: Yes Plan: Maintaining oxygen saturation on room air at rest. Complains of significant dyspnea and profound weakness w/ minimal exertion. CTA of the chest is negative for acute findings. Echocardiogram pending. Troponins are negative. proBNP is minimally elevated. Will obtain overnight pulse oximetry. We will evaluate for high output systolic heart failure/pulmonary hypertension with echocardiogram. Supplemental oxygen as needed. As needed nebulizer treatments. Pulmonary toilet. February 08, 2019-patient CTA chest which was negative for PE. Patient does have an elevated d-dimer 0.66. Will obtain a bilateral arterial Doppler of lower extremities to rule out DVT. Patient also had echocardiogram this morning which is pending. Await further findings. - Time Time Spent with patient: 15-24 minutes
[2019-02-08 12:31] LABS: APPEARANCE,URINE CLEAR; BILIRUBIN,URINE NEGATIVE (NEGATIVE); COLOR,URINE STRAW; GLUCOSE, URINE NEGATIVE (NEGATIVE); KETONES,URINE NEGATIVE (NEGATIVE); LEUKOCYTE ESTERASE,URINE NEGATIVE (NEGATIVE); NITRITE,URINE NEGATIVE (NEGATIVE); PROTEIN,URINE NEGATIVE (NEGATIVE); URINE SPECIFIC GRAVITY 1.008
--- NOTE | 2019-02-08 15:41 | RADIOLOGY REPORT (SQ) ---
EXAM DESCRIPTION: VENOUS BILATERAL LOWER COMPLETED DATE/TIME: 02/08/2019 3:16 pm REASON FOR STUDY: elevated D-Dimer R06.00 DYSPNEA, UNSPECIFIED COMPARISON: None. TECHNIQUE: Dynamic and static paez scale and color images acquired of both lower extremity venous sy stems. Selected spectral images acquired with additional compression and augmentation maneuvers. Imag es stored on PACS. LIMITATIONS: None. FINDINGS: RIGHT LEG COMMON FEMORAL AND FEMORAL: Normal phasicity, compression and augmentation. No visualized echogenic m aterial on paez scale. No defects on color images. POPLITEAL: Normal compression and augmentation. No visualized echogenic material on paez scale. No de fects on color images. CALF VESSELS: Normal compression and augmentation. No visualized echogenic material on paez scale. No defects on color image. GSV AND SSV: Normal compression. No visualized echogenic material on paez scale. No defects on color images. ANY DEEP VENOUS INSUFFICIENCY: Not evaluated. ANY EVIDENCE OF POPLITEAL CYST: No. OTHER: No other significant finding. LEFT LEG COMMON FEMORAL AND FEMORAL: Normal phasicity, compression and augmentation. No visualized echogenic m aterial on paez scale. No defects on color images. POPLITEAL: Normal compression and augmentation. No visualized echogenic material on paez scale. No de fects on color images. CALF VESSELS: Normal compression and augmentation. No visualized echogenic material on paez scale. No defects on color images. GSV AND SSV: Normal compression. No visualized echogenic material on paez scale. No defects on color images. ANY DEEP VENOUS INSUFFICIENCY: Not evaluated. ANY EVIDENCE POPLITEAL CYST: No. OTHER: No other significant finding. IMPRESSION: NO EVIDENCE DVT OR SVT IN EITHER LEG. TECHNICAL DOCUMENTATION: JOB ID: [id number]- All Rights Reserved Reading location - IP/workstation name: [email or web address]
--- NOTE | 2019-02-08 21:33 | XCELERA REPORT ---
[address] [address] Transthoracic Echocardiogram Report Name: COSTA MARTÍNEZ Age: 78 yrs Gender: Male : 1940 Patient Status: Inpatient Patient Location: [address] [place] [address] Study Date: 02/08/2019 10:46 AM Height: 66 in Weight: 150 lb BSA: 1.8 m2 Procedure: A two-dimensional transthoracic echocardiogram with color flow and Doppler was performed. Study Quality: Fair. Reason For Study: dyspnea, hypoxia, elevated proBNP History: dyspnea, hypoxia, elevated proBNP. Ordering Physician: KATHERINE KATE Performed By: Pauly Rashid Interpretation Summary The left ventricle is normal in size. There is normal left ventricular wall thickness. The left ventricular ejection fraction is within normal limits. LV EF is > than 65% Doppler measurements suggest normal left ventricular diastolic function The left ventricular wall motion is normal. There is no thrombus. No ASD,VSD,or PFO seen. The right ventricle is normal in size and function. The right atrium is normal. The left atrial size is normal. There is no evidence of mitral valve prolapse. There is no vegetation seen on the mitral valve. There is no mitral valve stenosis. There is a trace amount of mitral regurgitation There is no aortic valvular vegetation. There is no aortic valve stenosis There is no LVOT obstruction. No aortic regurgitation is present. There is no tricuspid stenosis. There is a trace amount of tricuspid regurgitation Right ventricular systolic pressure is normal. RVSP is 28 mm of Hg , with RA mean of 10. There is no pulmonic valvular stenosis. There is a trace amount of pulmonic regurgitation The aortic root is normal size. The inferior vena cava was not visualized There is no pericardial effusion. MMode/2D Measurements & Calculations RVDd: 3.7 cm LVIDd: 4.3 cm FS: 42.0 % Ao root diam: 2.9 cm IVSd: 0.95 cm LVIDs: 2.5 cm EDV(Teich): Ao root area: LVPWd: 1.0 cm 80.9 ml 6.8 cm2 ESV(Teich): LA dimension: 3.5 cm 21.6 ml EF(Teich): 73.3 % LVLd ap4: 7.0 cm SV(MOD-sp4): EDV(MOD-sp4): 34.0 ml 63.0 ml LVLs ap4: 5.2 cm ESV(MOD-sp4): 29.0 ml EF(MOD-sp4): 54.0 % Doppler Measurements & Calculations MV E max vladislav: MV P1/2t max vladislav: Ao V2 max: LV V1 max P.0 cm/sec 60.7 cm/sec 123.7 cm/sec 3.7 mmHg MV A max vladislav: MV P1/2t: 37.4 msec Ao max P.1 mmHg LV V1 max: 127.3 cm/sec MVA(P1/2t): 5.9 cm2 96.3 cm/sec MV E/A: 1.3 MV dec slope: 475.1 cm/sec2 MV dec time: 0.14 sec PA V2 max: TR max vladislav: MV P1/2t-pr_phl: 99.7 cm/sec 213.3 cm/sec 37.4 msec PA max P.0 mmHg TR max P.2 mmHg Left Ventricle The left ventricle is normal in size. There is normal left ventricular wall thickness. The left ventricular ejection fraction is within normal limits. LV EF is > than 65%. Doppler measurements suggest normal left ventricular diastolic function. The left ventricular wall motion is normal. There is no thrombus. No ASD,VSD,or PFO seen. Right Ventricle The right ventricle is normal in size and function. Atria The right atrium is normal. The left atrial size is normal. Mitral Valve There is no evidence of mitral valve prolapse. There is no vegetation seen on the mitral valve. There is no mitral valve stenosis. There is a trace amount of mitral regurgitation. Aortic Valve There is no aortic valvular vegetation. There is no aortic valve stenosis. There is no LVOT obstruction. No aortic regurgitation is present. Tricuspid Valve There is no tricuspid stenosis. There is a trace amount of tricuspid regurgitation. Right ventricular systolic pressure is normal. RVSP is 28 mm of Hg , with RA mean of 10. Pulmonic Valve There is no pulmonic valvular stenosis. There is a trace amount of pulmonic regurgitation. Great Vessels The aortic root is normal size. The inferior vena cava was not visualized. Effusions There is no pericardial effusion. : KATHERINE KATE > Amelia Sena
[2019-02-08 22:15] LABS: APPEARANCE,URINE CLEAR; BILIRUBIN,URINE NEGATIVE (NEGATIVE); COLOR,URINE STRAW; GLUCOSE, URINE NEGATIVE (NEGATIVE); KETONES,URINE NEGATIVE (NEGATIVE); LEUKOCYTE ESTERASE,URINE NEGATIVE (NEGATIVE); NITRITE,URINE NEGATIVE (NEGATIVE); PROTEIN,URINE NEGATIVE (NEGATIVE); URINE SPECIFIC GRAVITY 1.009; UROBILINOGEN,URINE NEGATIVE mg/dL (<2.0)
[2019-02-08] MEDS: CITALOPRAM HYDROBROMIDE 20 MG TABLET PO SCH (22:16)
[2019-02-08] MEDS: ATORVASTATIN CALCIUM 40 MG TABLET PO SCH (22:16)
[2019-02-09] MEDS: PANTOPRAZOLE SODIUM 40 MG TABLET.DR PO SCH (05:28)
[2019-02-09] MEDS: HEPARIN SOD (PORCINE) 5,000 UNIT/ML 1 ML VIAL SUBCUT SCH ×2 (05:28→13:28)
[2019-02-09] MEDS: IPRATROPIUM/ALBUTEROL 0.5-2.5 MG/3 ML AMPUL NEB SCH (07:48)
[2019-02-09 08:08] LABS: HEMATOCRIT 40.2 % (37.9-51.0); HEMOGLOBIN 13.4 g/dL (13.5-17.0); MEAN CORPUSCULAR HEMOGLOBIN 30.1 pg (27.0-33.4); MEAN CORPUSCULAR HGB CONC 33.4 g/dL (32.0-36.0); MEAN CORPUSCULAR VOLUME 90 fl (80-97); PLATELET COUNT 213 10^3/uL (150-450); RED BLOOD COUNT 4.45 10^6/uL (4.35-5.55); RED CELL DISTRIBUTION WIDTH 14.5 % (11.5-14.0); WHITE BLOOD COUNT 9.4 10^3/uL (4.0-10.5)
[2019-02-09 08:21] LABS: ANION GAP 9 (5-19); BLOOD UREA NITROGEN 2 mg/dL (7-20); CALCIUM 9.1 mg/dL (8.4-10.2); CARBON DIOXIDE 32 mmol/L (22-30); CHLORIDE 96 mmol/L (98-107); GLUCOSE 112 mg/dL (75-110); POTASSIUM 3.5 mmol/L (3.6-5.0)
[2019-02-09] MEDS: NORMAL SALINE 1000 ML 1,000 ML IV PRN (08:40)
[2019-02-09] MEDS: ATENOLOL 50 MG TABLET PO SCH (10:34)
[2019-02-09] MEDS: AMLODIPINE BESYLATE 5 MG TABLET PO SCH (10:35)
[2019-02-09] MEDS: DOCUSATE SODIUM 100 MG CAPSULE PO SCH (10:35)
[2019-02-09] MEDS: HYDROCHLOROTHIAZIDE 25 MG TABLET PO SCH (10:35)
[2019-02-09] MEDS: FLUTICASONE NASAL SPRAY 50 MCG/SPRY 120 SPRAY/16 GM NASL SCH (10:36)
--- NOTE | 2019-02-09 11:04 | PDOC DISCHARGE SUMMARY ---
General - Admit/Disc Date/PCP Admission Date/Primary Care Provider: 02/06/19 20:08 REGAN ESPAÑA MD Discharge Date: 02/09/19 - Discharge Diagnosis (1) Acute sinusitis Is this a current diagnosis for this admission?: Yes (2) Constipation Is this a current diagnosis for this admission?: Yes (3) Abdominal pain Is this a current diagnosis for this admission?: Yes (4) Generalized weakness Is this a current diagnosis for this admission?: Yes (5) Dyspnea Is this a current diagnosis for this admission?: Yes - Additional Information Resuscitation Status: Full Code Discharge Diet: As Tolerated Discharge Activity: Activity As Tolerated Prescriptions: Megestrol Acetate [Megace 20 Mg Tablet] 20 mg PO BID #60 Home Medications: Amlodipine Besylate [Norvasc 5 mg Tablet] 5 mg PO DAILY 02/07/19 Atenolol [Tenormin 50 mg Tablet] 25 mg PO DAILY 02/07/19 Citalopram Hydrobromide [Citalopram HBr] 10 mg PO QHS 02/07/19 Esomeprazole Mag Trihydrate [Nexium] 40 mg PO DAILY 02/07/19 Fluticasone Propionate [Flonase Nasal [place] 50 Mcg/[place] 16 gm] 1 sprays NASL Q12 02/07/19 Hydrochlorothiazide [Hydrodiuril 25 mg Tablet] 25 mg PO DAILY 02/07/19 Ipratropium [place] [Atrovent 0.06% Nasal [place]] 2 spray NASL BID 02/07/19 Nitroglycerin [Nitrostat 0.4 mg (1/150 Gr) Tabs 25/Bottle] 1 tab SL Q5MP PRN 02/07/19 Rosuvastatin Calcium [Crestor 20 mg Tablet] 20 mg PO DAILY 02/07/19 Megestrol Acetate [Megace 20 Mg Tablet] 20 mg PO BID #60 02/09/19 History of Present Illness Patient complains of: None this a.m. History of Present Illness: Mr. Zimmerman is a pleasant 78-year-old gentleman who presented to ER abdominal pain and fatigue. Patient was admitted and had further work-up for these complaints. Hospital Course Hospital Course: Patient was admitted to medical surgical floor showed an elevated d-dimer of 0.66 laboratory database. Patient underwent CT of the chest with contrast to rule out PE which it did as well as a venous Doppler which ruled out DVT. Patient also complained of continued shortness of breath throughout his hospital stay had an echocardiogram that was negative. Patient is on 2 L nasal cannula at this time and shows a desaturation to 86% while on room air. I will send patient home on 2 L nasal cannula continuously at this time. Patient also had a CT abdomen that showed constipation patient was treated for his constipation had a bowel movement and has occlusion of his abdominal pain at this time. Patient will follow up with his primary care practitioner 1 week of discharge for further testing. I also discussed with patient's daughter about food supplementation as well as I will place patient on Megace 20 mg p.o. twice daily for home. Patient's daughter is in agreement with plan of care. Patient's daughter also questions plan of care if this does not work what would be due for his appetite at that time. I educated patient's daughter that patient may require a feeding tube at that time in order to maintain his nutritional needs. She states that is not something she would probably want to do. I then stated that that would be a time that would be appropriate to discuss hospice. Physical Exam Vital Signs: Temp Pulse Resp BP Pulse Ox 97.4 F 73 23 H 130/52 H 93 02/09/19 08:30 02/09/19 08:30 02/09/19 08:30 02/09/19 08:30 02/09/19 08:30 Pulse Oximeter Nocturnal Start: 02/07/19 18:48 Freq: RTQ4 Status: Complete Protocol: Document 02/08/19 06:45 CMI (Rec: 02/08/19 06:45 CMI [email or web address]) Nocturnal Pulse Oximetry Equipment Usage Equipment Discontinued Continuous SpO2 Machine # 6 Intake & Output 02/08/19 02/09/19 02/10/19 06:59 06:59 06:59 Intake Total 2683 2480 Output Total 200 Balance 2483 2480 Weight 57.7 kg 57.7 kg General appearance: PRESENT: no acute distress, well-developed, well-nourished Neck exam: ABSENT: carotid bruit, JVD, lymphadenopathy, thyromegaly Respiratory exam: PRESENT: clear to auscultation harriet, other - 2 L nasal cannula. ABSENT: rales, rhonchi, wheezes Cardiovascular exam: PRESENT: RRR. ABSENT: diastolic murmur, rubs, systolic murmur Pulses: PRESENT: normal dorsalis pedis pul Vascular exam: PRESENT: normal capillary refill. ABSENT: pallor, other GI/Abdominal exam: PRESENT: normal bowel sounds, soft. ABSENT: distended, guarding, mass, organolmegaly, rebound, tenderness Rectal exam: PRESENT: deferred Extremities exam: PRESENT: full ROM. ABSENT: calf tenderness, clubbing, pedal edema Neurological exam: PRESENT: alert, awake Psychiatric exam: PRESENT: appropriate affect Results Laboratory Results: 02/09/19 07:14 02/09/19 07:14 02/08/19 02/08/19 02/09/19 12:05 21:45 07:14 WBC 9.4 RBC 4.45 Hgb 13.4 L Hct 40.2 MCV 90 MCH 30.1 MCHC 33.4 RDW 14.5 H Plt Count 213 Sodium Potassium Chloride Carbon Dioxide Anion Gap BUN Creatinine Est GFR ( Amer) Est GFR (Non-Af Amer) Glucose Calcium Urine Color STRAW STRAW Urine Appearance CLEAR CLEAR Urine pH 8.0 6.0 Ur Specific [place] 1.008 1.009 Urine Protein NEGATIVE NEGATIVE Urine Glucose (UA) NEGATIVE NEGATIVE Urine Ketones NEGATIVE NEGATIVE Urine Blood MODERATE H SMALL H Urine Nitrite NEGATIVE NEGATIVE Ur Leukocyte Esterase NEGATIVE NEGATIVE Urine WBC (Auto) 0 1 Urine RBC (Auto) 28 1 02/09/19 07:14 WBC RBC Hgb Hct MCV MCH MCHC RDW Plt Count Sodium 137.1 Potassium 3.5 L Chloride 96 L Carbon Dioxide 32 H Anion Gap 9 BUN 2 L Creatinine 0.57 Est GFR ( Amer) > 60 Est GFR (Non-Af Amer) > 60 Glucose 112 H Calcium 9.1 Urine Color Urine Appearance Urine pH Ur Specific [place] Urine Protein Urine Glucose (UA) Urine Ketones Urine Blood Urine Nitrite Ur Leukocyte Esterase Urine WBC (Auto) Urine RBC (Auto) 02/06/19 02/06/19 02/06/19 13:38 13:38 20:57 Creatine Kinase 38 L CK-MB (CK-2) 0.71 Troponin I < 0.012 < 0.012 NT-Pro-B Natriuret Pep 02/07/19 02/07/19 02/07/19 02:34 09:30 09:30 Creatine Kinase CK-MB (CK-2) Troponin I 0.013 < 0.012 NT-Pro-B Natriuret Pep 497 H Impressions: Chest X-Ray 02/06/19 13:46 IMPRESSION: NO ACUTE FINDINGS. Abdomen/Pelvis CT 02/06/19 15:26 IMPRESSION: 1. 3.3 CM INFRARENAL ABDOMINAL AORTIC ANEURYSM, UNCHANGED. 2. SCATTERED COLONIC DIVERTICULOSIS. NO EVIDENCE OF DIVERTICULITIS. CONTRAST IS PRESENT IN THE COLON BUT WAS NOT ADMINISTERED AT THIS FACILITY SO MUST HAVE BEEN EVALUATED PREVIOUSLY AT ANOTHER FACILITY. 3. NO OTHER SIGNIFICANT OR ACUTE FINDING IN THE ABDOMEN OR PELVIS ON CT SCAN WITH IV CONTRAST. Chest/Abdomen CTA 02/07/19 00:00 IMPRESSION: NORMAL CTA OF THE CHEST. NO PULMONARY EMBOLI. Venous Doppler Study 02/08/19 00:00 IMPRESSION: NO EVIDENCE DVT OR SVT IN EITHER LEG. Qualifiers - * PATIENT BEING DISCHARGED WITH ANY OF THE FOLLOWING DIAGNOSIS: No Acute Heart Failure - Is this a Heart Failure Patient?: No Plan Time Spent: Greater than 30 Minutes
--- NOTE | 2019-02-09 11:07 | ADVANCED CARE ---
- Diagnosis (1) Acute sinusitis Diagnosis Current: Yes (2) Constipation Diagnosis Current: Yes (3) Abdominal pain Diagnosis Current: Yes (4) Generalized weakness Diagnosis Current: Yes (5) Dyspnea Diagnosis Current: Yes Attendance: Myself, patient and his daughter Resuscitation Status: Full Code Discussion: Lengthy discussion with patient's daughter about plan of care. At this time we will send patient home with home health for physical therapy and help with bathing. We will also send patient home on O2 2 L nasal cannula as patient desats to 86% on room air. I will also place patient on Megace 20 g p.o. twice daily to increase his appetite. Patient's daughter educated that if this does not work he may require a feeding tube which she is not likely to put her father through. At that time I stated it would be appropriate to obtain hospice consultation. I educated patient's daughter that all testing that we have done so far has been negative other than he has had his constipation which was treated in house. Patient's daughter is in agreement with plan of care. Care Planning Goals: 1-home with home health 2-physical therapy 3-O2 2 L nasal cannula continuous 4-Megace to increase appetite 5-home health for help with bathing Time Spent: 20 minutes
[2019-02-09 14:41] VITALS: BP 147/71
== END 2019-02-09 15:45 | disposition home health service (06) ==
LOC: ER 13:08 → EH 20:08 → 4S 23:14
PROVIDERS: ADMIT Internal Medicine; ATTEND Internal Medicine
DX: J01.90 Acute sinusitis, unspecified (principal); K59.00 Constipation, unspecified; R10.30 Lower abdominal pain, unspecified; M62.81 Muscle weakness (generalized); R06.09 Other forms of dyspnea; K57.30 Diverticulosis of large intestine without perforation or abscess without bleeding; I71.4 Abdominal aortic aneurysm, without rupture; R63.0 Anorexia; I10 Essential (primary) hypertension; E78.5 Hyperlipidemia, unspecified; I73.9 Peripheral vascular disease, unspecified; R09.02 Hypoxemia; R05 Cough; R53.83 Other fatigue; R63.4 Abnormal weight loss; I25.10 Atherosclerotic heart disease of native coronary artery without angina pectoris; R79.89 Other specified abnormal findings of blood chemistry; R53.2 Functional quadriplegia; G47.29 Other circadian rhythm sleep disorder; I25.2 Old myocardial infarction; Z79.899 Other long term (current) drug therapy; Z85.828 Personal history of other malignant neoplasm of skin; Z87.891 Personal history of nicotine dependence; Z79.82 Long term (current) use of aspirin
CPT/HCPCS: 93005; 94640 ×4; 99285; 96360; 96361; 36415 ×4; 84439; 82553; 82550; 84443; 85025 ×2; 85027 ×2; 80048 ×3; 80053; 81001 ×2; 84484 ×2; 84481; 85379; 83605; 83880; 93306; 93970; 71045; 71275; 74177; 93010; 94762; 97530; 97163; G0378 ×5; A9270 ×17; J1644 ×2; J3490 ×2; J7030 ×4; J7620

== ENCOUNTER 2019-02-22 10:41 | Observation (INO) | payer MEDICARE, OTHER ==
[2019-02-22 11:21] LABS: ABSOLUTE EOSINOPHILS # (AUTO) 0.1 10^3/uL (0.0-0.6); ABSOLUTE LYMPHOCYTES (AUTO) 0.9 10^3/uL (0.5-4.7); ABSOLUTE MONOCYTES (AUTO) 1.7 10^3/uL (0.1-1.4); ABSOLUTE NEUT (AUTO) 9.1 10^3/uL (1.7-8.2); BASOPHILS % (AUTO) 0.3 % (0-2); EOSINOPHILS % (AUTO) 0.9 % (0-6); HEMOGLOBIN 12.8 g/dL (13.5-17.0); LYMPHOCYTES % (AUTO) 7.5 % (13-45); MEAN CORPUSCULAR HEMOGLOBIN 29.7 pg (27.0-33.4); MEAN CORPUSCULAR HGB CONC 32.9 g/dL (32.0-36.0); MEAN CORPUSCULAR VOLUME 90 fl (80-97); MONOCYTES % (AUTO) 14.5 % (3-13); PLATELET COUNT 308 10^3/uL (150-450); RED BLOOD COUNT 4.32 10^6/uL (4.35-5.55); RED CELL DISTRIBUTION WIDTH 14.8 % (11.5-14.0); SEGMENTED NEUTROPHILS % (AUTO) 76.8 % (42-78); TOTAL CELLS COUNTED % (AUTO) 100 %; WHITE BLOOD COUNT 11.8 10^3/uL (4.0-10.5)
--- NOTE | 2019-02-22 11:31 | RADIOLOGY REPORT (SQ) ---
EXAM DESCRIPTION: CHEST SINGLE VIEW COMPLETED DATE/TIME: 02/22/2019 11:23 am REASON FOR STUDY: Acute exacerbation of weakness COMPARISON: 02/06/2019 NUMBER OF VIEWS: One view. TECHNIQUE: Single frontal radiographic image of the chest acquired. LIMITATIONS: None. FINDINGS: LUNGS AND PLEURA: Minimal right basilar atelectasis. No consolidation. No pneumothorax o r effusion. MEDIASTINUM AND HILAR STRUCTURES: Normal in appearance. HEART AND VASCULAR STRUCTURES: Unchanged. SUPPORT DEVICES: None. BONES: No acute findings. OTHER: No other significant finding. IMPRESSION: Minimal right basilar atelectasis. No other significant findings. TECHNICAL DOCUMENTATION: JOB ID: [id number] [employer]- All Rights Reserved Reading location - IP/workstation name: [email or web address]
--- NOTE | 2019-02-22 11:42 | ER Document Report ---
Entered by RASTA FALCON SCRIBE 02/22/19 0010 Acting as scribe for:TERRA BEATTY MD ED Dizziness/Weakness - General Chief Complaint: General Weakness Stated Complaint: WEAKNESS Time Seen by Provider: 02/22/19 10:56 Primary Care Provider: REGAN ESPAÑA MD [Primary Care Provider] - Follow up as needed Mode of Arrival: Medic Information source: Patient, Relative Notes: 78 year old female that presents to the emergency department today with complaints of increased weakness since yesterday. Daughter at bedside states that yesterday the patient was able to ambulate with a walker at physical therapy but today was too weak to even get out of bed. Daughter states this morning when the patient woke up in the morning he was "clammy and disoriented with swollen eyes". TRAVEL OUTSIDE OF THE [place] IN LAST 30 DAYS: No - Related Data Allergies/Adverse Reactions: Sulfa (Sulfonamide Antibiotics) Allergy (Verified 11/25/17 11:02) RASH Past Medical History - General Information source: Patient, Relative, [facility] Records - Social History Smoking Status: Former Smoker Cigarette use (# per day): No Frequency of alcohol use: None Drug Abuse: None Lives with: Family Family History: Reviewed & Not Pertinent, Malignancy - Father - Past Medical History Cardiac Medical History: Reports: Hx Coronary Artery Disease, Hx Heart Attack - 1990, Hx Hypercholesterolemia, Hx Hypertension, Hx Peripheral Vascular Disease Malignancy Medical History: Reports Hx 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 Past Surgical History: Reports: Hx Carotid Endarterectomy, Other - Facial skin cancer surgery - Immunizations Hx Diphtheria, Pertussis, Tetanus Vaccination: Yes Hx Pneumococcal Vaccination: 04/05/17 Review of Systems - Review of Systems Notes: ROS given by daughter at bedside Constitutional: See HPI, Weakness - generalized EENT: No symptoms reported Cardiovascular: No symptoms reported Respiratory: No symptoms reported Gastrointestinal: No symptoms reported Genitourinary: No symptoms reported Male Genitourinary: No symptoms reported Musculoskeletal: No symptoms reported Skin: No symptoms reported Hematologic/Lymphatic: No symptoms reported Neurological/Psychological: No symptoms reported -: Yes All other systems reviewed and negative Physical Exam - Vital signs Vitals: Resp Pulse Ox 26 H 97 02/22/19 10:51 02/22/19 10:51 - Notes Notes: Physical Exam: General: Alert, appears well. HEENT: Normocephalic. Atraumatic. PERRL. Extraocular movements intact. Oropharynx clear. Neck: Supple. Non-tender. Respiratory: Patient able to sit himself up to have lungs auscultated with only minimal help. No respiratory distress. Clear and equal breath sounds bilaterally. Cardiovascular: Regular rate and rhythm. Abdominal: Normal Inspection. Non-tender. No distension. Normal Bowel Sounds. Back: Non-tender. No deformity or step off. Extremities: Moves all four extremities. Upper extremities: Normal inspection. Normal ROM. Lower extremities: Normal inspection. No edema. Normal ROM. Neurological: Normal cognition. AAOx4. Normal speech. Psychological: Normal affect. Normal Mood. Skin: Warm. Dry. Normal color. Course - Vital Signs Vital signs: Temp Pulse Resp BP Pulse Ox 98.1 F 20 157/80 H 95 02/22/19 10:55 02/22/19 13:01 02/22/19 13:01 02/22/19 13:01 - Laboratory Result Diagrams: 02/22/19 10:55 02/22/19 10:55 Laboratory results interpreted by me: 02/22/19 02/22/19 02/22/19 10:55 10:55 12:55 WBC 11.8 H RBC 4.32 L Hgb 12.8 L RDW 14.8 H Lymphocytes % 7.5 L Monocytes % 14.5 H Absolute Neutrophils 9.1 H Absolute Monocytes 1.7 H Creatine Kinase 27 L Albumin 3.4 L Urine Protein 30 H Urine Ketones 20 H Urine Blood SMALL H Urine Urobilinogen 4.0 H - Diagnostic Test Radiology reviewed: Image reviewed, Reports reviewed - Chest x-ray shows minimal right basilar atelectasis - EKG Interpretation by Ms EKG shows normal: Sinus rhythm, [place], Intervals, ST-T Waves. abnormal: QRS Complexes - Old inferior infarct Rate: Normal - 95 Rhythm: NSR When compared to previous EKG there are: No significant change - Consults Charles Cedeno NP Time consulted: 13:50 Consulted provider: will come to ER Discharge - Discharge Clinical Impression: Generalized weakness, Dehydration, Bronchitis Failure to thrive Qualifiers: Failure to thrive age range: in adult Qualified Code(s): R62.7 - Adult failure to thrive Condition: Stable Disposition: ADMITTED OBSERVATION Admitting Provider: Idalmis (Hospitalist) Unit Admitted: Medical Floor Referrals: REGAN ESPAÑA MD [Primary Care Provider] - Follow up as needed Scribe Attestation: 02/22/19 11:43 I personally performed the services described in the documentation, reviewed and edited the documentation which was dictated to the scribe in my presence, and it accurately records my words and actions. I personally performed the services described in the documentation, reviewed and edited the documentation which was dictated to the scribe in my presence, and it accurately records my words and actions.
[2019-02-22 11:44] LABS: ALBUMIN 3.4 g/dL (3.5-5.0); ALKALINE PHOSPHATASE 88 U/L (38-126); ANION GAP 11 (5-19); ASPARTATE AMINO TRANSFERASE 42 U/L (17-59); BILIRUBIN,DIRECT 0.3 mg/dL (0.0-0.4); BLOOD UREA NITROGEN 16 mg/dL (7-20); CALCIUM 9.7 mg/dL (8.4-10.2); CARBON DIOXIDE 26 mmol/L (22-30); CHLORIDE 103 mmol/L (98-107); CREATINE KINASE 27 U/L (55-170); GLUCOSE 104 mg/dL (75-110); TOTAL PROTEIN 6.8 g/dL (6.3-8.2)
[2019-02-22] MEDS ORDERED: NORMAL SALINE 1000 ML 1,000 ML IV ONE (13:06)
[2019-02-22 13:23] LABS: APPEARANCE,URINE CLEAR; BILIRUBIN,URINE NEGATIVE (NEGATIVE); COLOR,URINE AMBER; GLUCOSE, URINE NEGATIVE (NEGATIVE); KETONES,URINE 20 mg/dL (NEGATIVE); LEUKOCYTE ESTERASE,URINE NEGATIVE (NEGATIVE); NITRITE,URINE NEGATIVE (NEGATIVE); PROTEIN,URINE 30 mg/dL (NEGATIVE); URINE SPECIFIC GRAVITY 1.026
[2019-02-22] MEDS ORDERED: NORMAL SALINE 1000 ML 1,000 ML IV PRN (14:20)
[2019-02-22] MEDS ORDERED: TEMAZEPAM 7.5 MG CAPSULE PO PRN (14:20)
[2019-02-22] MEDS ORDERED: ONDANSETRON HCL INJ/PF 4 MG/2 ML SDV IV PRN (14:20)
[2019-02-22] MEDS ORDERED: ACETAMINOPHEN 325 MG TABLET PO PRN (14:20)
--- NOTE | 2019-02-22 14:37 | PDOC H&P ---
History of Present Illness Admission Date/PCP: February 22, 2019 REGAN ESPAÑA MD Patient complains of: Dysphasia, weakness History of Present Illness: COSTA MARTÍNEZ is a 78 year old male Past Medical History Cardiac Medical History: Reports: Coronary Artery Disease, Myocardial Infarction - 1990, Hyperlipidema, Hypertension, Peripheral Vascular Disease Denies: Atrial Fibrillation Pulmonary Medical History: Denies: Asthma, Bronchitis, Chronic Obstructive Pulmonary Disease (COPD), Pneumonia Neurological Medical History: Denies: Seizures Endocrine Medical History: Denies: Diabetes Mellitus Type 1, Diabetes Mellitus Type 2, Hyperthyroidism, Hypothyroidism Malignancy Medical History: Reports: 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 GI Medical History: Denies: Cirrhosis, Hepatitis Musculoskeltal Medical History: Denies: Arthritis, Gout Skin Medical History: Denies: Eczema, Psoriasis Psychiatric Medical History: Denies: Depression Hematology: Denies: Anemia, Bleeding Tendencies Past Surgical History Past Surgical History: Reports: Carotid Endarterectomy, Other - Facial skin cancer surgery Social History Information Source: Relative Lives with: Family Smoking Status: Former Smoker Frequency of Alcohol Use: None Hx Recreational Drug Use: No Drugs: None Hx Prescription Drug Abuse: No - Advance Directive Resuscitation Status: Do Not Resuscitate Family History Family History: Reviewed & Not Pertinent, Malignancy - Father Parental Family History Reviewed: Yes Children Family History Reviewed: Yes Sibling(s) Family History Reviewed.: Yes Medication/Allergy Home Medications: Amlodipine Besylate [Norvasc 5 mg Tablet] 5 mg PO QHS 02/22/19 Aspirin [Ecotrin] 81 mg PO QHS 02/22/19 Atenolol [Tenormin] 25 mg PO QHS 02/22/19 Fluticasone Propionate [Flonase Nasal [place] 50 Mcg/[place] 16 gm] 1 spray NASL Q12 02/22/19 Megestrol Acetate [Megace 20 Mg Tablet] 20 mg PO BID 02/22/19 Nitroglycerin [Nitrostat 0.4 mg (1/150 Gr) Tabs 25/Bottle] 1 tab SL Q5MP PRN 02/22/19 Rosuvastatin Calcium [Crestor 20 mg Tablet] 20 mg PO QHS 02/22/19 Allergies/Adverse Reactions: Sulfa (Sulfonamide Antibiotics) Allergy (Verified 11/25/17 11:02) RASH Review of Systems Constitutional: PRESENT: anorexia, night sweats, weakness, weight loss Eyes: ABSENT: visual disturbances Ears: ABSENT: hearing changes Cardiovascular: ABSENT: chest pain, dyspnea on exertion, edema, orthropnea, palpitations Respiratory: ABSENT: cough, hemoptysis Gastrointestinal: PRESENT: abdominal pain, dysphagia. ABSENT: constipation, diarrhea, hematemesis, hematochezia, nausea, vomiting Genitourinary: ABSENT: dysuria, hematuria Musculoskeletal: PRESENT: muscle weakness. ABSENT: joint swelling Integumentary: ABSENT: rash, wounds Neurological: PRESENT: weakness. ABSENT: abnormal gait, abnormal speech, confusion, dizziness, focal weakness, syncope Psychiatric: ABSENT: anxiety, depression, homidical ideation, suicidal ideation Endocrine: ABSENT: cold intolerance, heat intolerance, polydipsia, polyuria Hematologic/Lymphatic: ABSENT: easy bleeding, easy bruising Physical Exam Vital Signs: Temp Pulse Resp BP Pulse Ox 98.1 F 20 157/80 H 95 02/22/19 10:55 02/22/19 13:01 02/22/19 13:01 02/22/19 13:01 Intake & Output 02/21/19 02/22/19 02/23/19 06:59 06:59 06:59 Intake Total 1000 Balance 1000 Weight 63.503 kg General appearance: PRESENT: no acute distress, well-developed, well-nourished Neck exam: ABSENT: carotid bruit, JVD, lymphadenopathy, thyromegaly Respiratory exam: PRESENT: clear to auscultation harriet. ABSENT: rales, rhonchi, wheezes Cardiovascular exam: PRESENT: RRR. ABSENT: diastolic murmur, rubs, systolic murmur Pulses: PRESENT: +1 pedal pulses bilateral Vascular exam: PRESENT: normal capillary refill GI/Abdominal exam: PRESENT: hypoactive bowel sounds, soft Rectal exam: PRESENT: deferred Extremities exam: PRESENT: full ROM. ABSENT: calf tenderness, clubbing, pedal edema Neurological exam: PRESENT: alert, awake, oriented to person, oriented to place, oriented to time, oriented to situation, CN II-XII grossly intact. ABSENT: motor sensory deficit Psychiatric exam: PRESENT: appropriate affect, normal mood. ABSENT: homicidal ideation, suicidal ideation Skin exam: PRESENT: dry, intact, warm. ABSENT: cyanosis, rash Results Laboratory Results: 02/22/19 10:55 02/22/19 10:55 02/22/19 02/22/19 02/22/19 10:55 10:55 10:55 WBC 11.8 H RBC 4.32 L Hgb 12.8 L Hct 39.0 MCV 90 MCH 29.7 MCHC 32.9 RDW 14.8 H Plt Count 308 Seg Neutrophils % 76.8 Lymphocytes % 7.5 L Monocytes % 14.5 H Eosinophils % 0.9 Basophils % 0.3 Absolute Neutrophils 9.1 H Absolute Lymphocytes 0.9 Absolute Monocytes 1.7 H Absolute Eosinophils 0.1 Absolute Basophils 0.0 Sodium 139.9 Potassium 4.0 Chloride 103 Carbon Dioxide 26 Anion Gap 11 BUN 16 Creatinine 0.69 Est GFR ( Amer) > 60 Est GFR (Non-Af Amer) > 60 Glucose 104 Lactic Acid 0.9 Calcium 9.7 Total Bilirubin 1.0 AST 42 Alkaline Phosphatase 88 Total Protein 6.8 Albumin 3.4 L Urine Color Urine Appearance Urine pH Ur Specific [place] Urine Protein Urine Glucose (UA) Urine Ketones Urine Blood Urine Nitrite Ur Leukocyte Esterase Urine WBC (Auto) Urine RBC (Auto) 02/22/19 12:55 WBC RBC Hgb Hct MCV MCH MCHC RDW Plt Count Seg Neutrophils % Lymphocytes % Monocytes % Eosinophils % Basophils % Absolute Neutrophils Absolute Lymphocytes Absolute Monocytes Absolute Eosinophils Absolute Basophils Sodium Potassium Chloride Carbon Dioxide Anion Gap BUN Creatinine Est GFR ( Amer) Est GFR (Non-Af Amer) Glucose Lactic Acid Calcium Total Bilirubin AST Alkaline Phosphatase Total Protein Albumin Urine Color YANET Urine Appearance CLEAR Urine pH 5.0 Ur Specific [place] 1.026 Urine Protein 30 H Urine Glucose (UA) NEGATIVE Urine Ketones 20 H Urine Blood SMALL H Urine Nitrite NEGATIVE Ur Leukocyte Esterase NEGATIVE Urine WBC (Auto) 1 Urine RBC (Auto) 1 02/22/19 02/22/19 10:55 10:55 Creatine Kinase 27 L Troponin I < 0.012 Impressions: Chest X-Ray 02/22/19 11:07 IMPRESSION: Minimal right basilar atelectasis. No other significant findings. Assessment and Plan - Diagnosis (1) Generalized weakness Is this a current diagnosis for this admission?: Yes Plan: February 22, 2019-I suspect this is an exacerbation of his chronic weakness. Patient was here 2 weeks ago with the same complaint. Patient is eating better according to daughter but over the last 2 days has had a decrease in strength in ability to mobilize. I will have physical therapy see him for evaluation. (2) Dehydration Is this a current diagnosis for this admission?: Yes Plan: February 22, 2019-patient received 1 L normal saline bolus in the ER will continue normal saline at 75 mL an hour. Repeat BMP in a.m. (3) Abdominal pain Is this a current diagnosis for this admission?: Yes Plan: February 22, 2019-patient continues to complain of vague abdominal pain. Patient underwent ultrasound of abdomen in [place] 2 weeks ago. We will obtain these results. I will repeat CAT scan of abdomen and pelvis with contrast to determine if any other components are causing his discomfort. (4) Leukocytosis Is this a current diagnosis for this admission?: Yes Plan: February 22, 2019-mild. Unknown etiology. No source of infection at this time. Repeat CBC in a.m. (5) Dysphasia Is this a current diagnosis for this admission?: Yes Plan: February 22, 2019-obtain speech evaluation at this time. Will await the recommendations - Time Time Spent with patient: 35 or more minutes
--- NOTE | 2019-02-22 15:22 | RADIOLOGY REPORT (SQ) ---
EXAM DESCRIPTION: CT ABD/PELVIS WITH IV ONLY COMPLETED DATE/TIME: 02/22/2019 3:04 pm REASON FOR STUDY: poor appetite/abdominal pain COMPARISON: 02/06/2019 TECHNIQUE: CT scan of the abdomen and pelvis performed using helical scanning technique with dynamic intravenous contrast injection. No oral contrast. Images reviewed with lung, soft tissue, and bone windows. Reconstructed coronal and sagittal MPR images reviewed. Delayed images for evaluation of the urinary system also acquired. All images stored on PACS. All CT scanners at this facility use dose modulation, iterative reconstruction, and/or weight based d osing when appropriate to reduce radiation dose to as low as reasonably achievable (ALARA). [facility]: Dose Right [facility]: CareDose [facility]: Dose Right [facility]: Teradose 4D [facility]: EnStorage CONTRAST TYPE AND DOSE: contrast/concentration: Isovue 350.00 mg/ml; Total Contrast Delivered: 73.0 ml; Total Saline Delivered: 66.0 ml RENAL FUNCTION: BUN 16, creatinine 0.69 RADIATION DOSE: CT Rad equipment meets quality standard of care and radiation dose reduction techniq ues were employed. CTDIvol: 5.6 - 6.6 mGy. DLP: 726 mGy-cm.. LIMITATIONS: None. FINDINGS: LOWER CHEST: Minimal basilar atelectasis. LIVER: Normal size. No masses. No dilated ducts. SPLEEN: Normal size. No focal lesions. PANCREAS: No masses. No significant calcifications. No adjacent inflammation or peripancreatic fluid collections. Pancreatic duct not dilated. GALLBLADDER: No identified stones by CT criteria. No inflammatory changes to suggest cholecystitis. ADRENAL GLANDS: No significant masses or asymmetry. RIGHT KIDNEY AND URETER: No solid masses. No significant calcifications. No hydronephrosis or hyd roureter. LEFT KIDNEY AND URETER: No solid masses. No significant calcifications. No hydronephrosis or hydr oureter. AORTA AND VESSELS: Stable 3.4 x 2.9 cm infrarenal abdominal aortic aneurysm. RETROPERITONEUM: No retroperitoneal adenopathy, hemorrhage or masses. BOWEL AND PERITONEAL CAVITY: No masses or inflammatory changes. No free fluid or peritoneal masses. APPENDIX: Normal. PELVIS: No mass. No free fluid. Normal bladder. ABDOMINAL WALL: Left inguinal hernia containing omental fat only. BONES: No significant or acute findings. OTHER: No other significant finding. IMPRESSION: Stable 3.4 x 2.9 cm infrarenal abdominal aortic aneurysm. No acute findings in the abdo men or pelvis. COMMENT: AAA Size: Follow-up Recommendation 3.0-3.4 cm Every 3 years *Based upon the Society for Vascular Surgery Guidelines: J Vasc Surg. 2009 Oct;50(4 Suppl):S2-49 *For aortas of maximum diameter of 2.6-2.9 cm meeting the criteria for AAA (?1.5 x proximal normal se gment) TECHNICAL DOCUMENTATION: JOB ID: [id number] Quality ID # [id number]: Final reports with documentation of one or more dose reduction techniques (e.g., Au tomated exposure control, adjustment of the mA and/or kV according to patient size, use of iterative reconstruction technique) 2010 [employer]- All Rights Reserved Reading location - IP/workstation name: [email or web address]
--- NOTE | 2019-02-22 19:56 | EKG REPORT ---
SEVERITY:- ABNORMAL ECG - SINUS RHYTHM INFERIOR INFARCT, OLD ABNRM R PROG, CONSIDER ASMI OR LEAD PLACEMENT : Confirmed by: Amelia Sena MD 22-Feb-2019 19:55:55
[2019-02-23 07:05] LABS: ABSOLUTE EOSINOPHILS # (AUTO) 0.1 10^3/uL (0.0-0.6); ABSOLUTE LYMPHOCYTES (AUTO) 0.8 10^3/uL (0.5-4.7); ABSOLUTE MONOCYTES (AUTO) 1.6 10^3/uL (0.1-1.4); ABSOLUTE NEUT (AUTO) 10.9 10^3/uL (1.7-8.2); BASOPHILS % (AUTO) 0.1 % (0-2); EOSINOPHILS % (AUTO) 0.9 % (0-6); HEMATOCRIT 40.4 % (37.9-51.0); HEMOGLOBIN 13.7 g/dL (13.5-17.0); LYMPHOCYTES % (AUTO) 5.7 % (13-45); MEAN CORPUSCULAR HEMOGLOBIN 30.4 pg (27.0-33.4); MEAN CORPUSCULAR HGB CONC 33.9 g/dL (32.0-36.0); MEAN CORPUSCULAR VOLUME 90 fl (80-97); MONOCYTES % (AUTO) 11.9 % (3-13); PLATELET COUNT 262 10^3/uL (150-450); RED BLOOD COUNT 4.51 10^6/uL (4.35-5.55); RED CELL DISTRIBUTION WIDTH 14.5 % (11.5-14.0); SEGMENTED NEUTROPHILS % (AUTO) 81.4 % (42-78); TOTAL CELLS COUNTED % (AUTO) 100 %; WHITE BLOOD COUNT 13.4 10^3/uL (4.0-10.5)
[2019-02-23 07:29] LABS: ANION GAP 11 (5-19); BLOOD UREA NITROGEN 9 mg/dL (7-20); CALCIUM 9.6 mg/dL (8.4-10.2); CARBON DIOXIDE 25 mmol/L (22-30); CHLORIDE 101 mmol/L (98-107); GLUCOSE 103 mg/dL (75-110)
--- NOTE | 2019-02-23 08:33 | PDOC PROGRESS REPORT ---
Subjective Progress Note for:: 02/23/19 Subjective:: February 23, 2019-no complaints this a.m. Reason For Visit: DEHYDRATION, Physical Exam Vital Signs: Temp Pulse Resp BP Pulse Ox 98.4 F 96 22 H 136/70 H 96 02/22/19 17:46 02/22/19 17:46 02/22/19 17:46 02/22/19 17:46 02/22/19 17:46 Intake & Output 02/22/19 02/23/19 02/24/19 06:59 06:59 06:59 Intake Total 1000 Balance 1000 Weight 63.503 kg General appearance: PRESENT: no acute distress, well-developed, well-nourished Neck exam: ABSENT: carotid bruit, JVD, lymphadenopathy, thyromegaly Respiratory exam: PRESENT: decreased breath sounds, rhonchi. ABSENT: rales, wheezes Cardiovascular exam: PRESENT: RRR. ABSENT: diastolic murmur, rubs, systolic murmur Pulses: PRESENT: +1 pedal pulses bilateral Vascular exam: PRESENT: normal capillary refill GI/Abdominal exam: PRESENT: normal bowel sounds, soft. ABSENT: distended, guarding, mass, organolmegaly, rebound, tenderness Extremities exam: PRESENT: full ROM. ABSENT: calf tenderness, clubbing, pedal edema Neurological exam: PRESENT: alert, awake, oriented to person, oriented to place, oriented to time, oriented to situation, CN II-XII grossly intact. ABSENT: motor sensory deficit Psychiatric exam: PRESENT: appropriate affect, normal mood. ABSENT: homicidal ideation, suicidal ideation Skin exam: PRESENT: dry, intact, warm. ABSENT: cyanosis, rash Results Laboratory Results: 02/23/19 06:25 02/23/19 06:25 02/22/19 02/22/19 02/22/19 10:55 10:55 10:55 WBC 11.8 H RBC 4.32 L Hgb 12.8 L Hct 39.0 MCV 90 MCH 29.7 MCHC 32.9 RDW 14.8 H Plt Count 308 Seg Neutrophils % 76.8 Lymphocytes % 7.5 L Monocytes % 14.5 H Eosinophils % 0.9 Basophils % 0.3 Absolute Neutrophils 9.1 H Absolute Lymphocytes 0.9 Absolute Monocytes 1.7 H Absolute Eosinophils 0.1 Absolute Basophils 0.0 Sodium 139.9 Potassium 4.0 Chloride 103 Carbon Dioxide 26 Anion Gap 11 BUN 16 Creatinine 0.69 Est GFR ( Amer) > 60 Est GFR (Non-Af Amer) > 60 Glucose 104 Lactic Acid 0.9 Calcium 9.7 Total Bilirubin 1.0 AST 42 Alkaline Phosphatase 88 Total Protein 6.8 Albumin 3.4 L Urine Color Urine Appearance Urine pH Ur Specific [place] Urine Protein Urine Glucose (UA) Urine Ketones Urine Blood Urine Nitrite Ur Leukocyte Esterase Urine WBC (Auto) Urine RBC (Auto) 02/22/19 02/23/19 02/23/19 12:55 06:25 06:25 WBC 13.4 H RBC 4.51 Hgb 13.7 Hct 40.4 MCV 90 MCH 30.4 MCHC 33.9 RDW 14.5 H Plt Count 262 Seg Neutrophils % 81.4 H Lymphocytes % 5.7 L Monocytes % 11.9 Eosinophils % 0.9 Basophils % 0.1 Absolute Neutrophils 10.9 H Absolute Lymphocytes 0.8 Absolute Monocytes 1.6 H Absolute Eosinophils 0.1 Absolute Basophils 0.0 Sodium 137.3 Potassium 4.0 Chloride 101 Carbon Dioxide 25 Anion Gap 11 BUN 9 Creatinine 0.46 L Est GFR ( Amer) > 60 Est GFR (Non-Af Amer) > 60 Glucose 103 Lactic Acid Calcium 9.6 Total Bilirubin AST Alkaline Phosphatase Total Protein Albumin Urine Color YANET Urine Appearance CLEAR Urine pH 5.0 Ur Specific [place] 1.026 Urine Protein 30 H Urine Glucose (UA) NEGATIVE Urine Ketones 20 H Urine Blood SMALL H Urine Nitrite NEGATIVE Ur Leukocyte Esterase NEGATIVE Urine WBC (Auto) 1 Urine RBC (Auto) 1 02/22/19 02/22/19 10:55 10:55 Creatine Kinase 27 L Troponin I < 0.012 Impressions: Abdomen/Pelvis CT 02/22/19 00:00 IMPRESSION: Stable 3.4 x 2.9 cm infrarenal abdominal aortic aneurysm. No acute findings in the abdomen or pelvis. Chest X-Ray 02/22/19 11:07 IMPRESSION: Minimal right basilar atelectasis. No other significant findings. Assessment and Plan - Diagnosis (1) Generalized weakness Is this a current diagnosis for this admission?: Yes Plan: February 22, 2019-I suspect this is an exacerbation of his chronic weakness. Patient was here 2 weeks ago with the same complaint. Patient is eating better according to daughter but over the last 2 days has had a decrease in strength in ability to mobilize. I will have physical therapy see him for evaluation. February 22 2019-awaiting physical and occupational therapy. Make change plan of care based on the findings. (2) Dehydration Is this a current diagnosis for this admission?: Yes Plan: February 22, 2019-patient received 1 L normal saline bolus in the ER will continue normal saline at 75 mL an hour. Repeat BMP in a.m. February 23, 2019-resolved at this time DC IV fluids. Continue oral fluids (3) Abdominal pain Is this a current diagnosis for this admission?: Yes Plan: February 22, 2019-patient continues to complain of vague abdominal pain. Patient underwent ultrasound of abdomen in [place] 2 weeks ago. We will obtain these results. I will repeat CAT scan of abdomen and pelvis with contrast to determine if any other components are causing his discomfort. February 23, 2019-resolved at this time. CAT scan shows previously found abdominal aneurysm for which patient is undergoing stenting in the near future (4) Leukocytosis Is this a current diagnosis for this admission?: Yes Plan: February 22, 2019-mild. Unknown etiology. No source of infection at this time. Repeat CBC in a.m. February 23 2019-mildly elevated today at 13,000. Patient has no signs or symptoms of infectious process. Unsure of etiology of this leukocytosis with reactive or not at this time. We will continue to follow (5) Dysphasia Is this a current diagnosis for this admission?: Yes Plan: February 22, 2019-obtain speech evaluation at this time. Will await the recommendations February 23, 2019-awaiting speech evaluation to make changes plan of care.
[2019-02-23] MEDS: ENOXAPARIN SODIUM INJ 40 MG/0.4 ML DISP.SYRIN SUBCUT SCH (09:13)
--- NOTE | 2019-02-24 08:10 | PDOC PROGRESS REPORT ---
Subjective Progress Note for:: 02/24/19 Subjective:: February 23, 2019-no complaints this a.m. February 24, 2019-no complaints this a.m. Reason For Visit: DEHYDRATION, Physical Exam Vital Signs: Temp Pulse Resp BP Pulse Ox 99.0 F 103 H 17 141/71 H 93 02/23/19 19:00 02/23/19 19:00 02/23/19 19:00 02/23/19 19:00 02/23/19 19:00 Intake & Output 02/23/19 02/24/19 02/25/19 06:59 06:59 06:59 Intake Total 1000 1520 Output Total 360 Balance 1000 1160 Weight 63.503 kg 72.4 kg General appearance: PRESENT: no acute distress, well-developed, well-nourished Neck exam: ABSENT: carotid bruit, JVD, lymphadenopathy, thyromegaly Respiratory exam: PRESENT: clear to auscultation harriet. ABSENT: rales, rhonchi, wheezes Cardiovascular exam: PRESENT: RRR. ABSENT: diastolic murmur, rubs, systolic mu rmur Pulses: PRESENT: normal dorsalis pedis pul Vascular exam: PRESENT: normal capillary refill GI/Abdominal exam: PRESENT: normal bowel sounds, soft. ABSENT: distended, guarding, mass, organolmegaly, rebound, tenderness Extremities exam: PRESENT: full ROM. ABSENT: calf tenderness, clubbing, pedal edema Neurological exam: PRESENT: alert, awake, oriented to person, oriented to place, oriented to time, oriented to situation, CN II-XII grossly intact. ABSENT: motor sensory deficit Psychiatric exam: PRESENT: appropriate affect, normal mood. ABSENT: homicidal ideation, suicidal ideation Skin exam: PRESENT: dry, intact, warm. ABSENT: cyanosis, rash Results Laboratory Results: 02/23/19 06:25 02/23/19 06:25 02/22/19 02/22/19 10:55 10:55 Creatine Kinase 27 L Troponin I < 0.012 Impressions: Abdomen/Pelvis CT 02/22/19 00:00 IMPRESSION: Stable 3.4 x 2.9 cm infrarenal abdominal aortic aneurysm. No acute findings in the abdomen or pelvis. Chest X-Ray 02/22/19 11:07 IMPRESSION: Minimal right basilar atelectasis. No other significant findings. Assessment and Plan - Diagnosis (1) Generalized weakness Is this a current diagnosis for this admission?: Yes Plan: February 22, 2019-I suspect this is an exacerbation of his chronic weakness. Patient was here 2 weeks ago with the same complaint. Patient is eating better according to daughter but over the last 2 days has had a decrease in strength in ability to mobilize. I will have physical therapy see him for evaluation. February 23 2019-awaiting physical and occupational therapy. Make change plan of care based on the findings. February 24, 2019-patient refusing physical and Occupational Therapy. Will obtain a swallow eval this morning to determine if other treatment plans need to be adjusted (2) Dehydration Is this a current diagnosis for this admission?: Yes Plan: February 22, 2019-patient received 1 L normal saline bolus in the ER will continue normal saline at 75 mL an hour. Repeat BMP in a.m. February 23, 2019-resolved at this time DC IV fluids. Continue oral fluids February 24, 2019 resolved (3) Abdominal pain Is this a current diagnosis for this admission?: Yes Plan: February 22, 2019-patient continues to complain of vague abdominal pain. Patient underwent ultrasound of abdomen in [place] 2 weeks ago. We will obtain these results. I will repeat CAT scan of abdomen and pelvis with contrast to determine if any other components are causing his discomfort. February 23, 2019-resolved at this time. CAT scan shows previously found abdominal aneurysm for which patient is undergoing stenting in the near future February 24, 2019-resolved. Patient will undergo stenting in the near future for a abdominal aneurysm. (4) Leukocytosis Is this a current diagnosis for this admission?: Yes Plan: February 22, 2019-mild. Unknown etiology. No source of infection at this time. Repeat CBC in a.m. February 23 2019-mildly elevated today at 13,000. Patient has no signs or symptoms of infectious process. Unsure of etiology of this leukocytosis with reactive or not at this time. We will continue to follow February 24, 2019-continue to follow (5) Dysphasia Is this a current diagnosis for this admission?: Yes Plan: February 22, 2019-obtain speech evaluation at this time. Will await the recommendations February 23, 2019-awaiting speech evaluation to make changes plan of care. February 24, 2019-patient undergo swallow evaluation with modified barium swallow this a.m. Will await results to make changes plan of care - Time Time Spent with patient: 15-24 minutes
[2019-02-24] MEDS: ENOXAPARIN SODIUM INJ 40 MG/0.4 ML DISP.SYRIN SUBCUT SCH (09:46)
--- NOTE | 2019-02-24 10:15 | RADIOLOGY REPORT (SQ) ---
EXAM DESCRIPTION: AICHAIE SWALLOW COMPLETED DATE/TIME: 02/24/2019 9:48 am REASON FOR STUDY: signs of aspiration squamous cell carcinoma of the face, generalized weakness, dys phasia, loss of appetite COMPARISON: None. TECHNIQUE: Videofluoroscopic swallowing examination was performed in conjunction with speech patholo gy. Videofluoroscopic imaging was obtained and reviewed and these are the findings: RADIATION DOSE: 3 minutes 5 seconds of fluoroscopy was used. 1 images saved to PACS. LIMITATIONS: None FINDINGS: The patient was brought into the fluoro room and placed upright on a modified barium swall ow chair. The patient was then given multiple consistencies mixed with barium to swallow under live fluoroscopic video guidance. According to the Speech Pathologist there was laryngeal penetration and aspiration of all consistencies utilized. Patient demonstrates a very weak swallow with post swallo w residual contrast in the vallecular and piriform sinuses. IMPRESSION: LARYNGEAL PENETRATION AND ASPIRATION ABOVE. PLEASE SEE SPEECH PATHOLOGIST REPORT FOR OTHER FINDINGS AND RECOMMENDATIONS. COMMENT: Quality ID [id number]: Final reports for procedures using fluoroscopy that document radiation exp osure indices, or exposure time and number of fluorographic images (if radiation exposure indices are not available) TECHNICAL DOCUMENTATION: JOB ID: [id number] [employer]- All Rights Reserved Reading location - IP/workstation name: [email or web address] [id number]
--- NOTE | 2019-02-24 10:44 | PDOC DISCHARGE SUMMARY ---
General - Admit/Disc Date/PCP Admission Date/Primary Care Provider: 02/22/19 14:59 REGAN ESPAÑA MD Discharge Date: 02/24/19 - Discharge Diagnosis (1) Generalized weakness Is this a current diagnosis for this admission?: Yes (2) Dehydration Is this a current diagnosis for this admission?: Yes (3) Abdominal pain Is this a current diagnosis for this admission?: Yes (4) Leukocytosis Is this a current diagnosis for this admission?: Yes (5) Dysphasia Is this a current diagnosis for this admission?: Yes - Additional Information Resuscitation Status: Do Not Resuscitate Discharge Diet: As Tolerated Discharge Activity: Activity As Tolerated Home Medications: Amlodipine Besylate [Norvasc 5 mg Tablet] 5 mg PO QHS 02/22/19 Aspirin [Ecotrin] 81 mg PO QHS 02/22/19 Atenolol [Tenormin] 25 mg PO QHS 02/22/19 Fluticasone Propionate [Flonase Nasal [place] 50 Mcg/[place] 16 gm] 1 spray NASL Q12 02/22/19 Megestrol Acetate [Megace 20 Mg Tablet] 20 mg PO BID 02/22/19 Nitroglycerin [Nitrostat 0.4 mg (1/150 Gr) Tabs 25/Bottle] 1 tab SL Q5MP PRN 02/22/19 Rosuvastatin Calcium [Crestor 20 mg Tablet] 20 mg PO QHS 02/22/19 History of Present Illness Patient complains of: None this a.m. History of Present Illness: COSTA MARTÍNEZ is a 78 year old male who presented to the ER with weakness and dysphasia. Hospital Course Hospital Course: Patient was admitted to the hospital and underwent work-up for his weakness. Patient had a modified barium swallow on the morning of 02/24/2019-this exhibited patient was aspirating on all types of oral intake. Speech could not recommend a safe diet for patient. At that time I had a discussion with patient's daughter about next steps. Discussed hospice as patient would continue to aspirate and wind up with a aspiration pneumonia. I also told patient's daughter that patient would continue to get weaker as he was not eating but to allow him to try to eat anything he liked. Patient's daughter is in agreements patient will go home with hospice we will arrange for hospital bed, depends and boost. Physical Exam Vital Signs: Temp Pulse Resp BP Pulse Ox 98.5 F 111 H 20 161/70 H 91 L 02/24/19 08:11 02/24/19 08:11 02/24/19 08:11 02/24/19 08:11 02/24/19 08:11 Intake & Output 02/23/19 02/24/19 02/25/19 06:59 06:59 06:59 Intake Total 1000 1520 Output Total 360 Balance 1000 1160 Weight 63.503 kg 72.4 kg General appearance: PRESENT: no acute distress, well-developed, well-nourished Neck exam: ABSENT: carotid bruit, JVD, lymphadenopathy, thyromegaly Respiratory exam: PRESENT: clear to auscultation harriet. ABSENT: rales, rhonchi, wheezes Cardiovascular exam: PRESENT: RRR. ABSENT: diastolic murmur, rubs, systolic murmur Pulses: PRESENT: normal dorsalis pedis pul Vascular exam: PRESENT: normal capillary refill GI/Abdominal exam: PRESENT: normal bowel sounds, soft. ABSENT: distended, guarding, mass, organolmegaly, rebound, tenderness Extremities exam: PRESENT: full ROM. ABSENT: calf tenderness, clubbing, pedal edema Neurological exam: PRESENT: alert, awake, oriented to person, oriented to place, oriented to time, oriented to situation, CN II-XII grossly intact. ABSENT: motor sensory deficit Psychiatric exam: PRESENT: appropriate affect, normal mood. ABSENT: homicidal ideation, suicidal ideation Skin exam: PRESENT: dry, intact, warm. ABSENT: cyanosis, rash Results Laboratory Results: 02/23/19 06:25 02/23/19 06:25 02/22/19 02/22/19 10:55 10:55 Creatine Kinase 27 L Troponin I < 0.012 Impressions: Abdomen/Pelvis CT 02/22/19 00:00 IMPRESSION: Stable 3.4 x 2.9 cm infrarenal abdominal aortic aneurysm. No acute findings in the abdomen or pelvis. Chest X-Ray 02/22/19 11:07 IMPRESSION: Minimal right basilar atelectasis. No other significant findings. Modified Barium Swallow 02/24/19 00:00 IMPRESSION: LARYNGEAL PENETRATION AND ASPIRATION ABOVE. PLEASE SEE SPEECH PATHOLOGIST REPORT FOR OTHER FINDINGS AND RECOMMENDATIONS. Qualifiers - * PATIENT BEING DISCHARGED WITH ANY OF THE FOLLOWING DIAGNOSIS: No Acute Heart Failure - Is this a Heart Failure Patient?: No Plan Time Spent: Greater than 30 Minutes
--- NOTE | 2019-02-24 10:49 | ADVANCED CARE ---
- Diagnosis (1) Generalized weakness Diagnosis Current: Yes (2) Dehydration Diagnosis Current: Yes (3) Abdominal pain Diagnosis Current: Yes (4) Leukocytosis Diagnosis Current: Yes (5) Dysphasia Diagnosis Current: Yes Attendance: Myself, patient and his daughter Resuscitation Status: Do Not Resuscitate Discussion: Discussion with myself patient's daughter with patient input. Discussed the fact that patient had a modified barium swallow this morning so patient cannot swallow without aspirating on every type of food consistency. Educate patient's daughter patient will continue to weaken as he was not eating. Upon this time hospice was brought up. I educated that hospice would be able to help patient and family through the transition of life to . Patient's daughter agrees with plan of care at this time. I will send patient home on hospice with a hospital bed, depends and boost drinks. Educated patient daughter that patient would most likely choke on everything he eats but to allow him to eat what he likes. Care Planning Goals: 1 home with hospice 2 hospital bed 3 shakes 4 depends for incontinence Time Spent: 25 minutes
--- NOTE | 2019-02-24 11:32 | ST Inp Modified Barium Swallow ---
Medical Diagnosis - Medical Diagnoses Medical Diagnosis Description & ICD-10 Code(s): dysphagia ST Inpatient [facility] [place] - General Date: 02/24/19 - History -: Medical - per EMR: patient was admitted 02/22 with "dysphasia, weakness". Order for speech therapy indicated "dysphagia". Patient was initally placed on a full liquid diet due to abdominal pain. Nursing reports frequent coughing when eating and drinking. Therapist spoke with patient's daughter, who states that the patient recently began seeing home health speech therapy, who recommended nectar thick liqiuds. Patient was also receiving speech/language treatment from home health therapist. She states that issues such as weakness and "choking" started about a year ago. Patient has not had a previous MBSS. Medications: Medications Reviewed Allergies: Refer to medical record - Subjective Current Nutritional Means: PO Current PO Diet: Mechanical- ground, Thickened liquids - nectar Current Symptoms: Poor intake, Coughing Pain: Patient reports, 0/5 - Objective Assessment: Upright, Left Lateral - Food Trials Food Trials Used: Arnold Line thick liquids, Pureed The Patient: Required Assist, via cup, via spoon - Assessment Labial Function: Within Normal Limits Lingual Function: Within Normal Limits Mandibular Function: Within Normal Limits Dentition: Dentures-Upper Velo-Pharyngeal Function: Unremarkable Laryngeal Function: Weak Cough, weak voicing - Pharyngeal Stage Initiation of Pharyngeal Stage: Delayed - bolus remained in valleculae up to 6 seconds prior to swallow initiation for nectar liquids and pudding trials. Decreased Laryngeal Elevation: Yes Reduced Pressure Generation: Yes Reduced Tongue Base Retraction: Yes Pre-Swallowing Pooling in Valleculae: Significant Pre-Swallowing Pooling in Pyriforms: Mild Reduced Thyro-Hyiod Approximation: Yes Reduced Epiglottic Excursion: No Multiple Swallows With: Ineffective Clearance Post Swallow Residuals in Valleculae: Moderate Post Swallow Residuals in Pyriforms: Mild Post Swallow Residuals: throughout pharynx Pahryngeal Stage Comments: Patient demonstrated overall weak and delayed swallow function. Patient was unable to clear bolus from pharynx consistently, and demonstrated aspiration of residuals after the swallow for nectar and pudding textures. Aspiration was largely silent, a cued cough partially cleared material, however, the patient could not complete a second swallow after the cough, so residue remained in the pharynx. Patient deemed to be at high risk of aspiration on and after the swallow with all textures. - Impression/Summary Laryngeal Penetration: Yes Tracheal Aspiration: yes - with nectar and pudding trials, delayed cough, during swallow, after swallow Ineffective Compensatory Strategies: throat clear & reswallow, hard swallow Patient Presents With: Pharyngeal stage dysph., Severe Risk of Aspiration: Severe - Recommendations Solid Diet Recommendations: Pureed Liquid Diet Recommendations: Arnold Line-Thick Strict Aspitarion Precautions: Yes Dysphagia Therapy with SAP PP CONSULTANT: Home Health - patient currently has home health speech therapy Other Recommendations: Discussed with provider and family findings of study. Due to nature of swallowing disorder, no "safe" PO diet can be recommended. Arnold Line thick liquids and puree solids would be a conservative PO diet option, daughter is in agreement with this. Provider is recommending hospice care at this time. No furhter treatment to be rendered. - Time Total Time: 30 Total Timed Minutes: 30
--- NOTE | 2019-02-25 08:12 | PDOC PROGRESS REPORT ---
Subjective Progress Note for:: 02/25/19 Subjective:: February 23, 2019-no complaints this a.m. February 24, 2019-no complaints this a.m. February 25, 2019-no complaints this a.m. Reason For Visit: DEHYDRATION, Physical Exam Vital Signs: Temp Pulse Resp BP Pulse Ox 98.4 F 98 19 153/71 H 91 L 02/24/19 23:48 02/24/19 23:48 02/24/19 23:48 02/24/19 23:48 02/24/19 23:48 Intake & Output 02/24/19 02/25/19 02/26/19 06:59 06:59 06:59 Intake Total 1520 472 Output Total 360 Balance 1160 472 Weight 72.4 kg 71.6 kg General appearance: PRESENT: no acute distress, well-developed, well-nourished Neck exam: ABSENT: carotid bruit, JVD, lymphadenopathy, thyromegaly Respiratory exam: PRESENT: clear to auscultation harriet. ABSENT: rales, rhonchi, wheezes Cardiovascular exam: PRESENT: RRR. ABSENT: diastolic murmur, rubs, systolic murmur Pulses: PRESENT: +1 pedal pulses bilateral GI/Abdominal exam: PRESENT: normal bowel sounds, soft. ABSENT: distended, guarding, mass, organolmegaly, rebound, tenderness Extremities exam: PRESENT: full ROM. ABSENT: calf tenderness, clubbing, pedal edema Neurological exam: PRESENT: alert, awake Psychiatric exam: PRESENT: appropriate affect, normal mood. ABSENT: homicidal ideation, suicidal ideation Skin exam: PRESENT: dry, intact, warm. ABSENT: cyanosis, rash Results Laboratory Results: 02/23/19 06:25 02/23/19 06:25 02/22/19 02/22/19 10:55 10:55 Creatine Kinase 27 L Troponin I < 0.012 Impressions: Abdomen/Pelvis CT 02/22/19 00:00 IMPRESSION: Stable 3.4 x 2.9 cm infrarenal abdominal aortic aneurysm. No acute findings in the abdomen or pelvis. Chest X-Ray 02/22/19 11:07 IMPRESSION: Minimal right basilar atelectasis. No other significant findings. Modified Barium Swallow 02/24/19 00:00 IMPRESSION: LARYNGEAL PENETRATION AND ASPIRATION ABOVE. PLEASE SEE SPEECH PATHOLOGIST REPORT FOR OTHER FINDINGS AND RECOMMENDATIONS. Assessment and Plan - Diagnosis (1) Generalized weakness Is this a current diagnosis for this admission?: Yes Plan: February 22, 2019-I suspect this is an exacerbation of his chronic weakness. Patient was here 2 weeks ago with the same complaint. Patient is eating better according to daughter but over the last 2 days has had a decrease in strength in ability to mobilize. I will have physical therapy see him for evaluation. February 23 2019-awaiting physical and occupational therapy. Make change plan of care based on the findings. February 24, 2019-patient refusing physical and Occupational Therapy. Will obtain a swallow eval this morning to determine if other treatment plans need to be adjusted February 25, 2019-Long discussion with patient family yesterday. We are working on send patient home with either hospice or home health at this time. Will make further decisions once care planners are here today. (2) Dehydration Is this a current diagnosis for this admission?: Yes Plan: February 22, 2019-patient received 1 L normal saline bolus in the ER will continue normal saline at 75 mL an hour. Repeat BMP in a.m. February 23, 2019-resolved at this time DC IV fluids. Continue oral fluids February 24, 2019 resolved February 25, 2019-resolved (3) Abdominal pain Is this a current diagnosis for this admission?: Yes Plan: February 22, 2019-patient continues to complain of vague abdominal pain. Patient underwent ultrasound of abdomen in [place] 2 weeks ago. We will obtain these results. I will repeat CAT scan of abdomen and pelvis with contrast to determine if any other components are causing his discomfort. February 23, 2019-resolved at this time. CAT scan shows previously found abdominal aneurysm for which patient is undergoing stenting in the near future February 24, 2019-resolved. Patient will undergo stenting in the near future for a abdominal aneurysm. February 25, 2019-resolved (4) Leukocytosis Is this a current diagnosis for this admission?: Yes (5) Dysphasia Is this a current diagnosis for this admission?: Yes Plan: February 22, 2019-obtain speech evaluation at this time. Will await the recommendations February 23, 2019-awaiting speech evaluation to make changes plan of care. February 24, 2019-patient undergo swallow evaluation with modified barium swallow this a.m. Will await results to make changes plan of care February 25, 2019-modified barium swallow obtained. Patient unable to swallow any kind of diet safely. Discussed with patient's family. Awaiting decision on either home with hospice or home with home health. Patient's family made aware that patient would aspirate on everything he ate but they are okay with that and most likely will go for hospice at home. - Time Time Spent with patient: 15-24 minutes - Inpatient Certification Based on my medical assessment, after consideration of the patient's comorbidities, presenting symptoms, or acuity I expect that the services needed warrant INPATIENT care.: Yes
[2019-02-25] MEDS: ENOXAPARIN SODIUM INJ 40 MG/0.4 ML DISP.SYRIN SUBCUT SCH (10:29)
[2019-02-25] MEDS ORDERED: ATROPINE SULFATE 1% OPH SOLN 5 ML BOTTLE SL PRN (11:10)
--- NOTE | 2019-02-25 12:02 | PDOC DISCHARGE SUMMARY ---
General - Admit/Disc Date/PCP Admission Date/Primary Care Provider: 02/22/19 14:59 REGAN ESPAÑA MD Discharge Date: 02/25/19 - Discharge Diagnosis (1) Generalized weakness Is this a current diagnosis for this admission?: Yes (2) Dehydration Is this a current diagnosis for this admission?: Yes (3) Abdominal pain Is this a current diagnosis for this admission?: Yes (4) Leukocytosis Is this a current diagnosis for this admission?: Yes (5) Dysphasia Is this a current diagnosis for this admission?: Yes - Additional Information Resuscitation Status: Do Not Resuscitate Discharge Diet: As Tolerated Discharge Activity: Activity As Tolerated Home Medications: Amlodipine Besylate [Norvasc 5 mg Tablet] 5 mg PO QHS 02/22/19 Aspirin [Ecotrin] 81 mg PO QHS 02/22/19 Atenolol [Tenormin] 25 mg PO QHS 02/22/19 Fluticasone Propionate [Flonase Nasal [place] 50 Mcg/[place] 16 gm] 1 spray NASL Q12 02/22/19 Megestrol Acetate [Megace 20 Mg Tablet] 20 mg PO BID 02/22/19 Nitroglycerin [Nitrostat 0.4 mg (1/150 Gr) Tabs 25/Bottle] 1 tab SL Q5MP PRN 02/22/19 Rosuvastatin Calcium [Crestor 20 mg Tablet] 20 mg PO QHS 02/22/19 History of Present Illness Patient complains of: No complaints at this time History of Present Illness: COSTA MARTÍNEZ is a 78 year old male who presented to the ER with weakness and dysphasia. Hospital Course Hospital Course: Patient was admitted to the hospital underwent work-up for his weakness. Patient had a modified barium swallow on morning of 02/22/2019 showing patient was unable to swallow any oral intake safely. Speech could not recommend a safe diet at that time. At that time I had a discussion with patient's daughter and son about next steps to patient's care. Discussion about hospice as patient would continue to aspirate and eventually aspiration pneumonia would become a primary concern. I also told patient's daughter and son as patient got weaker he would not be able to eat and not eating with eventually make him even weaker. Decision was made to take patient home on hospice allow him to enjoy any oral intake that he can at that time. Physical Exam Vital Signs: Temp Pulse Resp BP Pulse Ox 98.4 F 98 19 153/71 H 91 L 02/24/19 23:48 02/24/19 23:48 02/24/19 23:48 02/24/19 23:48 02/24/19 23:48 Intake & Output 02/24/19 02/25/19 02/26/19 06:59 06:59 06:59 Intake Total 1520 472 Output Total 360 Balance 1160 472 Weight 72.4 kg 71.6 kg General appearance: PRESENT: no acute distress, well-developed, well-nourished Neck exam: ABSENT: carotid bruit, JVD, lymphadenopathy, thyromegaly Respiratory exam: PRESENT: decreased breath sounds, rhonchi, unlabored Cardiovascular exam: PRESENT: RRR. ABSENT: diastolic murmur, rubs, systolic murmur Pulses: PRESENT: +1 pedal pulses bilateral Vascular exam: PRESENT: normal capillary refill GI/Abdominal exam: PRESENT: ascites Extremities exam: PRESENT: full ROM. ABSENT: calf tenderness, clubbing, pedal edema Neurological exam: PRESENT: alert, awake, oriented to person, oriented to place, oriented to time, oriented to situation, CN II-XII grossly intact. ABSENT: motor sensory deficit Psychiatric exam: PRESENT: appropriate affect, normal mood. ABSENT: homicidal ideation, suicidal ideation Skin exam: PRESENT: dry, intact, warm. ABSENT: cyanosis, rash Results Laboratory Results: 02/23/19 06:25 02/23/19 06:25 02/22/19 02/22/19 10:55 10:55 Creatine Kinase 27 L Troponin I < 0.012 Impressions: Abdomen/Pelvis CT 02/22/19 00:00 IMPRESSION: Stable 3.4 x 2.9 cm infrarenal abdominal aortic aneurysm. No acute findings in the abdomen or pelvis. Chest X-Ray 02/22/19 11:07 IMPRESSION: Minimal right basilar atelectasis. No other significant findings. Modified Barium Swallow 02/24/19 00:00 IMPRESSION: LARYNGEAL PENETRATION AND ASPIRATION ABOVE. PLEASE SEE SPEECH PATHOLOGIST REPORT FOR OTHER FINDINGS AND RECOMMENDATIONS. Qualifiers - * PATIENT BEING DISCHARGED WITH ANY OF THE FOLLOWING DIAGNOSIS: No Acute Heart Failure - Is this a Heart Failure Patient?: No Plan Time Spent: Greater than 30 Minutes
[2019-02-25 12:18] VITALS: BP 110/56
== END 2019-02-25 13:31 | disposition home health service (06) ==
LOC: ER 10:41 → EH 14:59 → 4N 17:37
PROVIDERS: ADMIT Hospitalist; ATTEND Hospitalist
DX: M62.81 Muscle weakness (generalized) (principal); E86.0 Dehydration; R62.7 Adult failure to thrive; R10.9 Unspecified abdominal pain; D72.829 Elevated white blood cell count, unspecified; R47.02 Dysphasia; I25.10 Atherosclerotic heart disease of native coronary artery without angina pectoris; R63.0 Anorexia; R61 Generalized hyperhidrosis; R63.4 Abnormal weight loss; I71.4 Abdominal aortic aneurysm, without rupture; I25.2 Old myocardial infarction; R13.13 Dysphagia, pharyngeal phase; R13.19 Other dysphagia; E78.5 Hyperlipidemia, unspecified; I10 Essential (primary) hypertension; Z66 Do not resuscitate; Z79.899 Other long term (current) drug therapy; Z79.82 Long term (current) use of aspirin; Z85.828 Personal history of other malignant neoplasm of skin; Z87.891 Personal history of nicotine dependence
CPT/HCPCS: 93005; 99285; 96360; 51701; 36415 ×2; 87040; 82962 ×2; 82550; 85025 ×2; 80048; 80053; 81001; 84484; 83605; 71045; 74230; 74177; 93010; 97530; 97162; 92610; 92526; 92611; 97535; 97166; G0378 ×4; J1650 ×3; J7030; A9270